=== PATIENT | male | born 1960 | race Caucasian/White ===

== ENCOUNTER 2018-06-06 16:13 | Inpatient (IN) | payer OTHER ==
[~2018-06-06] VITALS: Ht 177.8 cm; Wt 118.8 kg
[~2018-06-06 16:13] MED LIST: PRILOSEC20 MG PO; REMERON45 MG OR; RISPERDAL4 MG OR; TEGRETOL200 MG OR; VISTARIL 50MG C50 MG OR; VISTARIL50 MG OR
--- NOTE | 2018-06-06 16:23 | NUR ---
TO TX ROOM VIA W/C. OFFICERS X 2 AT SIDE
[2018-06-06] MEDS ORDERED: FERR SULFATE325 MG PO (16:28)
[2018-06-06] MEDS ORDERED: GLUCOPHAGE850 MG PO (16:28)
[2018-06-06] MEDS ORDERED: ARTANE2 MG PO (16:29)
[2018-06-06] MEDS ORDERED: HUMULIN 70/30 SC ×2 (16:29)
[2018-06-06] MEDS ORDERED: FLUOXETINE20 MG PO (16:30)
[2018-06-06] MEDS ORDERED: LIPITOR20 MG PO (16:30)
[2018-06-06] MEDS ORDERED: KETOCONAZOLE2 % TOP (16:31)
[2018-06-06] MEDS ORDERED: HEMORRHOIDAL RE (16:33)
[2018-06-06] MEDS ORDERED: HUMULIN R500 UNIT/M SC (16:37)
[2018-06-06] MEDS ORDERED: LISINOPRIL20 M1 PO (16:38)
[2018-06-06] MEDS ORDERED: AMLODIPINE10 MG PO (16:38)
[2018-06-06] MEDS ORDERED: PERPHENAZINE4 MG PO (16:43)
[2018-06-06] MEDS ORDERED: DIPHENHYDRAMINE50 MG PO (16:44)
[2018-06-06] MEDS ORDERED: PROTONIX40 M1 IV (16:46)
[2018-06-06] MEDS ORDERED: [UNRECOGNIZED DRUG - OTHER] PO (16:48)
[2018-06-06] MEDS ORDERED: MELOXICAM15 MG PO (16:49)
[2018-06-06] MEDS ORDERED: BACLOFEN20 MG PO (16:49)
[2018-06-06] MEDS ORDERED: VENTOLIN HFA IN (16:51)
[2018-06-06] MEDS ORDERED: ACETAMIN325 MG PO (16:51)
[2018-06-06 17:01] LABS: HEMATOCRIT 37.5 % (39.0-50.0); HEMOGLOBIN 12.8 g/dl (14.0-18.0); IMMATURE GRANULOCYTES 0.9 % (0.0-5.0); MEAN CELL VOLUME 87.6 fL CALC (80.0-100.0); MEAN CORPUSCULAR HGB 29.9 pG CALC (26.0-32.0); MEAN CORPUSCULAR HGB CONC 34.1 g/L CALC (32.0-36.0); NEUT# 19.91 thou/uL (1.82-7.42); RED BLOOD COUNT 4.28 mill/uL (4.70-6.10)
--- NOTE | 2018-06-06 17:01 | NUR ---
IV FLUIDS INFUSING TO RFA SITE. HEALTHY.
[2018-06-06 17:19] LABS: ALBUMIN 3.2 g/dL (3.2-5.0); BILIRUBIN, TOTAL 1.4 mg/dL (0.0-1.4); POTASSIUM 4.9 mmol/l (3.5-5.1); TOTAL PROTEIN 6.1 g/dL (6.3-8.2)
--- NOTE | 2018-06-06 17:25 | NUR ---
ADVISED OF LACTIC 2.5
--- NOTE | 2018-06-06 17:36 | NUR ---
PT ADVISED OF NPO STATUS. VOICED UNDERSTANDING.
--- NOTE | 2018-06-06 18:01 | NUR ---
PT MEDICATED FOR C/O ABD PAIN. DRINKING CONTRAST FOR CT ABD.
--- NOTE | 2018-06-06 18:04 | NUR ---
ATTEMPT TO CALL REPORT ON PATIENT TO FERNANDA NURSE UNAVAILABLE.
--- NOTE | 2018-06-06 18:15 | NUR ---
REPORT CALLED TO DUSTY MICHAELRDoris NURSE.
--- NOTE | 2018-06-06 18:40 | NUR ---
PT FINISHING PO GASTROGRAFFIN FOR CT ABD W/CONTRAST. REPORTS DECREASE IN ABD PAIN S/P PAIN MED.
--- NOTE | 2018-06-06 19:02 | NUR ---
PT W/ELEVATED TEMP 102.4. CALLED DR THOMAS NEW ORDER FOR TYLENOL 650MG PO Q4H. PT COMPLETED GASTROGRAFFIN. PT TO CT VIA FOR CT ABD. ANTWON ADVISED.
[2018-06-06 19:30] VITALS: BP 166/77
--- NOTE | 2018-06-06 19:45 | NUR ---
PT ARRIVED ON FLOOR VIA STRECHER WITH SENIOR CARE GUARDS. DX. PANCREATITIS. PT ALERT AND ORIENTED. DENIES PAIN AT CURRENT MOMENT. PT HAS LABORED BREATED. O2 95% . PLACED PT ON 2L NASAL CANNULA. CUED PT TO BREATH THROUGH NOSE. PT VOICED UNDERSTANDING. LUNGS DIMISHED. ADOMEN DISTENDED AND SOFT. NO SKIN ISSUES NOTED. PT SINUS TACH ON TELE MONITOR. IV PATENT.PT CONT OF BOWEL AND BLADDER. EDUCATED PT THAT HE WAS NPO. AT BEDSIDE.PULSES STRONG IN ALL EXTREMITIES. PT DECLINED FLU AND PNEUMONIA VACCINATION. PT INSTRUCTED TO CALL FOR ASSIST IF NEED TO USE BATHROOM D/T HIM BEING A FALL RISK. PT VOICED UNDERSTANDING. BED IN LOWEST POSTION. WILL CONTINUE MONITOR.
--- NOTE | 2018-06-06 22:30 | NUR ---
DEMEROL ADMINISTERED FOR PAIN IN ABDOMEN.WILL MONITOR FOR EFFECTIVENESS.
[2018-06-06 23:48] VITALS: BP 98/69
[2018-06-07] VITALS (7 sets, daily range): BP systolic 114–144; BP diastolic 60–86
--- NOTE | 2018-06-07 03:50 | NUR ---
PT CONTINUES TO HAVE TEMP OF 101. PRN TYLENOL ADMINISTED.PT DENIES THAT HE HAS TO USE THE BATHROOM. EDUCATED PT THAT WE NEED A STOOL SAMPLE. HE VOICED UNDERSTAND. WILL CONTINUE TO MONITOR.
--- NOTE | 2018-06-07 05:14 | NUR ---
DEMEROL EFFECTIVE. PT RESTING IN BED WITH EYES CLOSED. BEDIN LOWEST POSITON. GUARDS AT BEDSIDE. WILL CONTINUE TO MONITOR.
--- NOTE | 2018-06-07 06:00 | NUR ---
ATTEMPTED TO GET U/A FROM PT. PT UNABLE TO VOID. MD MADE AWARE. ORDERS TO STRAIGHT CATH. 1000CC OF URINE DRAINED. UA SENT O LAB. MD CONTACT FOR FLUIDS. PENDING CALL BACK. ONCOMING NURSE MADE AWARE.
[2018-06-07 06:16] LABS: HEMATOCRIT 34.5 % (39.0-50.0); HEMOGLOBIN 11.9 g/dl (14.0-18.0); IMMATURE GRANULOCYTES 1.3 % (0.0-5.0); MEAN CORPUSCULAR HGB 30.4 pG CALC (26.0-32.0); MEAN CORPUSCULAR HGB CONC 34.5 g/L CALC (32.0-36.0); NEUT# 19.97 thou/uL (1.82-7.42); RED BLOOD COUNT 3.92 mill/uL (4.70-6.10)
[2018-06-07 06:34] LABS: ALBUMIN 2.8 g/dL (3.2-5.0); CREATININE 2.4 mg/dL (0.7-1.3); MAGNESIUM 1.4 mg/dL (1.6-2.3); POTASSIUM 4.9 mmol/l (3.5-5.1); TOTAL PROTEIN 5.5 g/dL (6.3-8.2)
[2018-06-07 06:57] LABS: URINE BLOOD DIPSTICK MODERATE (NEGATIVE); URINE COLOR YELLOW; URINE GLUCOSE - DIPSTICK 250 mg/dL (NEGATIVE); URINE KETONE NEGATIVE (NEGATIVE); URINE LEUK ESTERASE NEGATIVE (NEGATIVE); URINE NITRITE - DIPSTICK NEGATIVE (Negative); URINE PH 5.5 (4.5-8.0); URINE PROTEIN - DIPSTICK >=300 mg/dL (NEG-TRACE); URINE SPECIFIC GRAVITY >=1.030; URINE UROBILINOGEN - DIPSTICK 0.2 E.U./dL (0.2)
[2018-06-07 06:59] LABS: URINE BILIRUBIN - DIPSTICK SMALL (NEGATIVE)
[2018-06-07 07:00] LABS: URINE AMORPH SEDIMENT MANY hpf (NONE-FER); URINE COARSE GRANULAR CAST MODERATE lpf; URINE FINE GRAN CAST MODERATE lpf; URINE MUCUS FEW hpf (NONE-FEW); URINE SQUAMOUS EPITHELIAL CELL FEW EPI/hpf (0-FEW)
--- NOTE | 2018-06-07 08:00 | NUR ---
DR ALFARO CALLED FOR ORDERS FOR PT FLUIDS. ASKED IF HE WANTED TO START PT ON D5 1/2 BECAUSE PT IS NPO FOR PANCREATITIS. NO ORDERS RECIEVED. DIRETED TO FOLLOW UP WITH ONCOMING PHYSICIAN.ONCOMING NURSE MADE AWARE.
--- NOTE | 2018-06-07 08:51 | NUR ---
PT SITTING UP IN BED WATCHING TV; RESP LABORED ON 02 @3L NC: NON PRODUCTIVE COUGH NOTED; PULSES STRONG; ABD FIRM DISTENDED; SKIN INTACT; TELE IN PLACE; IV FLUSHED WITHOUT DIFFICULTY; MEDICATED WITH TYLENOL FOR TEMP 100.8; REMIAN NPO; COMPLAIN FOR ABD PAIN 8/10; MEDICATED WITH DEMEROL; GUARDS AT BEDSIDE; CALL COTTON IN REACH.
--- NOTE | 2018-06-07 09:15 | NUR ---
LUCAS AMOR/AUGER MACHINE OFFBEARER CALLED FOR UPDATE ON PT
--- NOTE | 2018-06-07 11:36 | NUR ---
DR THOMAS AT BEDSIDE TO DISCUSS POC; TEMP 101.3 MEDICATED WITH TYLENOL; 02 3L NC; TELE IN PLACE; GUARDS PRESENT; CALL COTTON IN REACH.
--- NOTE | 2018-06-07 11:45 | NUR ---
PT WAS BLADDER SCAN BY FINISHING POWDER PRESS OPERATOR AND STUDENT NOTED 300CC URINE IN BLADDER;
--- NOTE | 2018-06-07 12:58 | NUR ---
TEMPT 100.7 MEDICATED WITH TYLENOL. LR INFUSING AT 100CC/HR; SITE APPEARS HEALHTY;
--- NOTE | 2018-06-07 14:04 | NUR ---
PT ENCOURAGE TO VOID USING URINAL OR TOILET; PT CALLED PLANT CONTROL OPERATOR COTTON STATED HE CANNOT VOID; DR THOMAS AWARE AND INSTRUCTED TO INSERT AVERY CATH. PT AWARE OF SUCH;
--- NOTE | 2018-06-07 14:38 | NUR ---
1438- 16 FR AVERY CATHETER PLACED PER DOCTOR ORDER AND NURSE REBEKAH ORDER. 600ML OF JAVID COLORED URINE RETURN IN CATHETER BAG. GRAINING PRESS OPERATOR STUDENT EDILIA PLACED CATHETER, RN CHRISTOPHER ATTENDED AT BEDSIDE. PT TOLERATED PROCEDURE WELL. BED LOW AND LOCKED. CALL LIGHT AND PHONE WITHIN REACH. PT STABLE LYING SEMI-DERAS IN BED. WILL CONTUINUE TO MONITOR.
--- NOTE | 2018-06-07 15:30 | NUR ---
ZOSYN INFUSING, IV SITE APPEARS HEALTHY; AVERY DRAINING TO GRAVITY, CLEAR, JAVID URINE; TEMP 100.5; DR THOMAS AWARE OF TEMP; WILL CONTINUE TO MONITOR,
--- NOTE | 2018-06-07 15:53 | NUR ---
GOLDY SCHMITT/NURSE SENIOR PHP DEVELOPER CALLED FOR UPDATE ON PT.
--- NOTE | 2018-06-07 16:37 | NUR ---
TEMP 101.1, MEDICATED WITH TYLENOL; DR THOMAS AWARE OF TEMP. IFV INFUSING WITHOUT DIFFICULTY; AVERY PATENT DRAINING TO GRAVITY, JAVID, CLEAR URINE; CALL COTTON IN REAC; REMAIN NPO; GUARDS PRESENT.
--- NOTE | 2018-06-07 18:06 | NUR ---
ASSISTED PT TO RECLINER; O2 2L NC; AVERY PATENT DRAINING JAVID, CLEAR URINE TO GRAVITY; C/O OF BEING HUNGRY; REMAIN NPO; ST ON TELE; ASK FOR PAIN MEDS Q4H; CONTINUE HAVING ELEVATED TEMPS; COLD PACK, COLD WASH CLOTH PROVIDED TO ALLIVIATE TEMP; TYLENOL Q4HR; GUARDS PRESENT;
--- NOTE | 2018-06-07 19:23 | NUR ---
REPORT GIVEN BY REBEKAH MONTENEGRO. PATIENT AWAKE RESTING IN BED WATCHING TV WITH TWO GUARDS PRESENT. RESP EVEN AND UNLABORED. NO S/S OF DISTRESS NOTED. PATIENT CURRENTLY ASKING FOR PAIN MEDICATIONS, WILL CHECK MAR. PLAN OF CARE DISCUSSED. PATIENT INFORMED TO CALL WITH ANY QUESTIONS OR CONCERNS. ASSESSMENT COMPLETE. FALL PRECAUTIONS IN PLACE.
[2018-06-08] VITALS (7 sets, daily range): BP systolic 115–158; BP diastolic 63–92
--- NOTE | 2018-06-08 00:49 | NUR ---
PATIENT RESTING IN BED WATCHING TV WITH TWO GUARDS PRESENT. RESP EVEN AND UNLABORED. NO S/S OF DISTRESS NOTED.
--- NOTE | 2018-06-08 04:34 | NUR ---
PATIENT SITTING IN THE RECLINER WITH TWO GUARDS PRESENT AT BEDSIDE. RESP EVEN AND UNLABORED. NO S/S OF DISTRESS NOTED.
[2018-06-08 05:18] LABS: HEMATOCRIT 34.5 % (39.0-50.0); HEMOGLOBIN 11.5 g/dl (14.0-18.0); IMMATURE GRANULOCYTES 2.5 % (0.0-5.0); MEAN CELL VOLUME 90.1 fL CALC (80.0-100.0); MEAN CORPUSCULAR HGB CONC 33.3 g/L CALC (32.0-36.0); NEUT# 16.93 thou/uL (1.82-7.42); RED BLOOD COUNT 3.83 mill/uL (4.70-6.10); RED CELL DISTRI WIDTH 13.1 % (11.5-15.5)
[2018-06-08 05:39] LABS: ALBUMIN 2.8 g/dL (3.2-5.0); BILIRUBIN, TOTAL 0.7 mg/dL (0.0-1.4); CHOLESTEROL HDL RATIO 2.6 (<4.4 (CALC)); CREATININE 1.7 mg/dL (0.7-1.3); MAGNESIUM 1.6 mg/dL (1.6-2.3); POTASSIUM 5.1 mmol/l (3.5-5.1); TOTAL PROTEIN 5.5 g/dL (6.3-8.2)
--- NOTE | 2018-06-08 08:26 | NUR ---
PT SUPINE IN BED. REPORT RECEIVED FROM JOSE YEPEZ. GUARDS AT BEDSIDE X 2. ANKLE SHACKLED TO BED X 1. PT REPORTS SEVERE LEFT UPPER ABD PAIN. PAIN MEDICATION AND SCHEDULE REVIEWED. CALL LIGHT REVIEWED AND IN REACH. DISEASE PROCESS, TX AND DIET DISCUSSED W/ PT. PT STATES UNDERSATNDING OF EDUCATION.
--- NOTE | 2018-06-08 11:00 | NUR ---
PT SHOWERED AT THIS TIME. TEMP 100.7. TYLENOL PO ADMINISTERED. IVF CHILLED AND TUBING PALCED IN ICE/WATER BASIN.
--- NOTE | 2018-06-08 12:00 | NUR ---
DR. THOMAS IN TO SEE PT. PLAN OF CARE UPDATED.
--- NOTE | 2018-06-08 16:34 | NUR ---
URINE SAMPLE COLLECTED FROM AVERY CATHETER PER DR. THOMAS.
--- NOTE | 2018-06-08 19:47 | NUR ---
PT RESTING IN BED, WITH GUARDS AT BEDSIDE, PT RLE IS ZIP TIED TO BED. PEDAL PULSES STRONG AND EQUAL BID. AVERY BAG DRAINING TO GRAVITY, STAT LOCK IN PLACE TO L THIGH. PT STATES PAIN 10/10 REQUESTING PAIN MED, INFORMED PT MEDICATION DUE AT 2146, NOTIFIED MD AND NO NEW ORDERS TO CHANGE MEDICATIONS. PT IN AGREEMENT. DISCUSSED POC AND NPO STATUS. IV PHOEBE WEINBERG, ASSESSMENT COMPLETED, CALL LIGHT IN REACH,CONTINUE TO MONITOR.
--- NOTE | 2018-06-08 22:14 | NUR ---
PT MEDICATED WITH TYLENOL FOR TEMP OF 100.8, SMALL SIP OF WATER ALLOWED. CALL LIGHT IN REACH,CONTINUE TO MONITOR.
[2018-06-09 00:08] VITALS: BP 144/89
--- NOTE | 2018-06-09 01:54 | NUR ---
IV ZOSYN INITIATED,PT C/O PAIN MEDICATED PER JUN. CALL LIGHT IN REACH, GUARDS AT BEDSIDE, CALL LIGHT IN REACH,CONTINUE TO MONITOR.
[2018-06-09 03:49] VITALS: BP 159/94
--- NOTE | 2018-06-09 03:53 | NUR ---
PT ASSISTED BACK IN BED AFTER BM THIS AM. PT HAD REMOVED TELEMETRY AND LEFT IT ON THE FLOOR. REPLACED LEADS AND TELE. CALL LIGHT IN REACH,CONTINUE TO MONITOR.
[2018-06-09 05:31] LABS: HEMOGLOBIN 11.5 g/dl (14.0-18.0); IMMATURE GRANULOCYTES 1.9 % (0.0-5.0); MEAN CELL VOLUME 90.7 fL CALC (80.0-100.0); MEAN CORPUSCULAR HGB 29.8 pG CALC (26.0-32.0); MEAN CORPUSCULAR HGB CONC 32.9 g/L CALC (32.0-36.0); NEUT# 14.54 thou/uL (1.82-7.42); RED BLOOD COUNT 3.86 mill/uL (4.70-6.10)
--- NOTE | 2018-06-09 05:44 | NUR ---
PT C/O PAIN 01/25, MEDICATED WITH DEMEROL, REPLACED TELEMETRY INFORMED PT TO NOT REMOVE MONITOR. CALL LIGHT IN REACH,CONTINUE TO MONITOR.
[2018-06-09 06:48] LABS: ALBUMIN 2.6 g/dL (3.2-5.0); ALKALINE PHOSPHATASE 86 u/l (38-126); AMYLASE 616 u/l (30-110); ANION GAP 17 (6-22 (CALC)); BILIRUBIN, TOTAL 0.5 mg/dL (0.0-1.4); BUN 27 mg/dL (9-20); BUN/CREATININE RATIO 23 (12-20 (CALC)); CARBON DIOXIDE 19 mmol/l (22-30); CHLORIDE 109 mmol/l (95-108); CREATININE 1.2 mg/dL (0.7-1.3); GFR > 60 ML/MIN (>=60 (CALC)); GFR FOR AFR.AMER. > 60 ML/MIN (>=60 (CALC)); MAGNESIUM 1.9 mg/dL (1.6-2.3); POTASSIUM 4.7 mmol/l (3.5-5.1); SGOT/AST 26 u/l (17-59); SODIUM 140 mmol/l (137-146); TOTAL PROTEIN 5.2 g/dL (6.3-8.2)
[2018-06-09 06:56] LABS: LIPASE 10688 u/l (23-300)
--- NOTE | 2018-06-09 07:00 | NUR ---
SHIFT CHANGE REPORT, PT AWAKE ALERT AND ORIENTED LYING IN SUPINE POSITION, C/O RUQ PAIN @ 9/10 AND REQUESTING PAIN MED, ADVISED OF TIME HE CAN HAVE MED AGAIN, TELE MONITOR IN PLACE, AVERY IN PLACE WITH CLEAR JAVID URINE, CALL COTTON IN REACH. PT SHACKLED TO BED AND GUARDS X 2 AT BEDSIDE.
[2018-06-09 09:38] VITALS: BP 167/87
[2018-06-09 11:56] VITALS: BP 170/94
--- NOTE | 2018-06-09 12:08 | NUR ---
DR THOMAS ROUNDED AND DISCUSSED PLAN TO TRANSFER PT TO [facility] UNDER DR. ALFARO'S CARE. REY WAS ADVISED ABOUT ELEVATED BP'S AND BLOOD GLUCOSE BUT DECIDED NOT TO WRITE ANY NEW ORDERS NOW. PAIN NEEDS ADDRESSED.
--- NOTE | 2018-06-09 12:41 | NUR ---
RESTING IN BED, PAIN NOT WELL CONTROLLED AND @ 10/10 NOW, INFORMED OF PLAN TO TRANSFER WITHIN NEXT 30 MINS.
--- NOTE | 2018-06-09 13:23 | NUR ---
REPORT GIVEN TO NURSE GOODMAN AT [facility], PT LEAVING WITH MEDICAL TRANSPORTERS AT THIS TIME.
--- NOTE | 2018-06-09 13:24 | NUR ---
Discharge instructions given. Patient verbalizes understanding of same. Discharged in poor condition via [facility] with *Other. All belongings sent with pt.
== END 2018-06-09 13:07 | DRG 438 ==
LOC: ED 16:13 → ED-I 16:44 → ED 17:01 → MS2 17:02
PROVIDERS: Emergency Medicine; ADMIT Internal Medicine Nephrology; ATTEND Internal Medicine Nephrology
PROC: 0T9B70Z Drainage of Bladder with Drainage Device, Via Natural or Artificial Opening (ICD-10-PCS; principal; 2018-06-07)
DX: K85.91 Acute pancreatitis with uninfected necrosis, unspecified (principal); J18.9 Pneumonia, unspecified organism; N17.9 Acute kidney failure, unspecified; I12.9 Hypertensive chronic kidney disease with stage 1 through stage 4 chronic kidney disease, or unspecified chronic kidney disease; E11.22 Type 2 diabetes mellitus with diabetic chronic kidney disease; N18.9 Chronic kidney disease, unspecified; K21.9 Gastro-esophageal reflux disease without esophagitis; E78.5 Hyperlipidemia, unspecified; F41.1 Generalized anxiety disorder; F32.9 Major depressive disorder, single episode, unspecified; M19.90 Unspecified osteoarthritis, unspecified site; R33.9 Retention of urine, unspecified; D63.8 Anemia in other chronic diseases classified elsewhere; Z79.1 Long term (current) use of non-steroidal anti-inflammatories (NSAID)
CPT/HCPCS: J0692

== ENCOUNTER → 2018-07-05 | Outpatient (REF) | payer OTHER ==
[~2018-07-05] MED LIST changes: +ACETAMIN325 MG PO; +AMLODIPINE10 MG PO; +ARTANE2 MG PO; +BACLOFEN20 MG PO; +DIPHENHYDRAMINE50 MG PO; +FERR SULFATE325 MG PO; +FLUOXETINE20 MG PO; +GLUCOPHAGE850 MG PO; +HEMORRHOIDAL RE; +HUMULIN 70/30 SC; +HUMULIN R500 UNIT/M SC; +KETOCONAZOLE2 % TOP; +LIPITOR20 MG PO; +LISINOPRIL20 M1 PO; +MELOXICAM15 MG PO; +PERPHENAZINE4 MG PO; +PROTONIX40 M1 IV; +VENTOLIN HFA IN; +[UNRECOGNIZED DRUG - OTHER] PO
== END | disposition home or self-care (01) | DRG 440 ==
LOC: CT 08:43
PROVIDERS: ATTEND Internal Medicine
DX: K86.1 Other chronic pancreatitis (principal)
CPT/HCPCS: Q9967

== ENCOUNTER 2019-12-06 16:32 | Observation (INO) | payer OTHER ==
[~2019-12-06] VITALS: Ht 177.8 cm; Wt 113.4 kg
[~2019-12-06 16:32] MED LIST changes: +LISINOPRIL10 MG PO; -LISINOPRIL20 M1 PO
--- NOTE | 2019-12-06 16:32 | NUR ---
PT TO ROOM VIA EMS STRETCHER ACCOMPANIED BY 2 GUARDS.
--- NOTE | 2019-12-06 17:11 | NUR ---
PT FOLLOWING MINIMAL DIRECTION AND HAS DISORGANIZED SPEECH. PUPILS AT A 4, EQUAL AND REACTIVE.
[2019-12-06 17:23] LABS: IMMATURE GRANULOCYTES 0.9 % (0.0-5.0); MEAN CELL VOLUME 87.6 fL CALC (80.0-100.0); MEAN CORPUSCULAR HGB 29.3 pG CALC (26.0-32.0); MEAN CORPUSCULAR HGB CONC 33.4 g/dL CAL (32.0-36.0); NEUT# 4.61 thou/uL (1.82-7.42); RED BLOOD COUNT 3.72 mill/uL (4.70-6.10); RED CELL DISTRI WIDTH 13.1 % (11.5-15.5)
[2019-12-06 17:28] LABS: HEMATOCRIT 32.6 % (39.0-50.0); HEMOGLOBIN 10.9 g/dl (14.0-18.0); URINE BILIRUBIN - DIPSTICK NEGATIVE (NEGATIVE); URINE BLOOD DIPSTICK SMALL (NEGATIVE); URINE COLOR YELLOW; URINE GLUCOSE - DIPSTICK NEGATIVE (NEGATIVE); URINE KETONE NEGATIVE (NEGATIVE); URINE LEUK ESTERASE NEGATIVE (NEGATIVE); URINE NITRITE - DIPSTICK NEGATIVE (Negative); URINE PH 6.5 (4.5-8.0); URINE PROTEIN - DIPSTICK >=300 mg/dL (NEG-TRACE); URINE UROBILINOGEN - DIPSTICK 0.2 E.U./dL (0.2)
[2019-12-06 17:30] LABS: ALBUMIN 3.4 g/dL (3.2-5.0); ALKALINE PHOSPHATASE 81 u/l (38-126); BILIRUBIN, TOTAL 0.4 mg/dL (0.0-1.4); CARBON DIOXIDE 26 mmol/l (22-30); CHLORIDE 99 mmol/l (95-108); CREATININE 2.2 mg/dL (0.7-1.3); GFR 31 ML/MIN (>=60 (CALC)); GFR FOR AFR.AMER. 37 ML/MIN (>=60 (CALC)); SGOT/AST 33 u/l (17-59); TOTAL PROTEIN 6.5 g/dL (6.3-8.2)
[2019-12-06 17:32] LABS: ANION GAP 9 (6-22 (CALC)); BUN 38 mg/dL (9-20); BUN/CREATININE RATIO 17 (12-20 (CALC)); SODIUM 128 mmol/l (137-146)
[2019-12-06 17:33] LABS: POTASSIUM 5.7 mmol/l (3.5-5.1)
[2019-12-06 17:35] LABS: URINE AMORPH SEDIMENT MANY hpf (NONE-FER); URINE RBC 0-2 RBC/hpf (0-5); URINE WBC 0-2 WBC/hpf (0-5)
[2019-12-06 17:43] LABS: MYOGLOBIN 478 ng/mL (0 - 121)
--- NOTE | 2019-12-06 17:55 | NUR ---
TO RADIOLOGY WITH 2 GUARDS AT BEDSIDE
--- NOTE | 2019-12-06 18:04 | NUR ---
PT BACK FROM RADIOLOGY, GUARDS REMAIN AT BEDSIDE PT REMAINS DROWSY WEAK EQUAL ENTERPRISE ENGINEER.
[2019-12-06] MEDS ORDERED: FLONASE AL50 MCG/ACT NAB (18:17)
[2019-12-06] MEDS ORDERED: BENADRYL 50MG C50 MG PO (18:19)
[2019-12-06] MEDS ORDERED: METOPROL TAR100 MG PO (18:20)
[2019-12-06] MEDS ORDERED: RISPERDAL 4MG TA4 MG PO (18:22)
[2019-12-06] MEDS ORDERED: BENZTROPINE2 MG PO (18:23)
[2019-12-06] MEDS ORDERED: BUMETANIDE1 MG PO (18:24)
[2019-12-06] MEDS ORDERED: CLONIDINE0.2 MG PO (18:33)
[2019-12-06] MEDS ORDERED: AMOX/K CLAV875 M1 PO (18:40)
[2019-12-06] MEDS ORDERED: KLOR-CON M1010 MEQ PO (18:40)
[2019-12-06] MEDS ORDERED: MUPIROCIN2 % EX (18:43)
--- NOTE | 2019-12-06 18:53 | NUR ---
GUARDS REMAIN AT BEDSIDE, CALL COTTON WITHIN REACH
--- NOTE | 2019-12-06 19:10 | NUR ---
REPORT RECEIVED. PT RESTING. NAD. VSS. HAND CUFFED TO BEDRAIL. 2 GUARDS AT BEDSIDE. CM. SR.
--- NOTE | 2019-12-06 20:45 | NUR ---
ICE CHIPS GIVEN
--- NOTE | 2019-12-06 21:13 | NUR ---
ATTEMPTED TO CALL REPORT. NURSE WILL CALL BACK.
--- NOTE | 2019-12-06 21:27 | NUR ---
REPORT TO FLOOR.
[2019-12-06 21:40] VITALS: BP 154/74
--- NOTE | 2019-12-06 21:40 | NUR ---
PT ARRIVED TO UNIT VIA STRETCHER ACCOMPANIED BY GUARDS X1 AND ED NURSE. PT APPEARS TO BE IN STABLE CONDITION, SOMEWHAT FIDGETY, BUT OTHERWISE CALM. AIDE IN W/PT OBTAINING V/S.
--- NOTE | 2019-12-06 21:44 | NUR ---
TO FLOOR VIA STRETCHER WITH 2 GUARDS. PT FOLLOWS SOME COMMANDS BUT APPEARS TO BE HALLUCINATING. VOIDED 300 CC IN URINAL PRIOR TO TRANSFER TO FLOOR. PT AMBULATED TO BR UPON ARRIVAL TO ROOM. GAIT A LITTLE WOBBLY
--- NOTE | 2019-12-06 22:49 | NUR ---
WAITING FOR 2ND GUARD TO COME BACK TO ROOM TO MEDICATE PT. 1X GUARD AT BEDSIDE ONLY.
--- NOTE | 2019-12-06 22:57 | NUR ---
PT MEDICATED ORDERS PROVIDE. ONE GUARD AT BEDSIDE. 2ND GUARD IS OFF THE FLOOR. PT IS FIDGETY IN THE BED, SPEECH IS GIBERISH AND NON-COHERANT. PT COOPERATED WITH TAKING PILLS AND DRINKING WATER. UNABLE TO ANSWER ADMISION QUESTIONS APPROPRIATELY. WILL CONTINUE TO MONITOR. SKIN APPEARS INTACT.
--- NOTE | 2019-12-06 23:10 | NUR ---
GUARDS CALLED TO REPORT THAT THE PT PULLED OUT HIS IV.
--- NOTE | 2019-12-06 23:15 | NUR ---
PT MOVING AROUND PULLING ON CHAIN AT FEET, BED IS STRIPPED, NO ATTEMPTS AT THIS TIME TO REPLACE IV SITE.
[2019-12-07 04:20] VITALS: BP 185/91
--- NOTE | 2019-12-07 06:01 | NUR ---
PT MEDICATED FOR BP @167/73, HR 88 PER ORDERS. PT AWAKE PROPPED UP IN BED LOOKING AROUND PULLING ON THINGS, TALKING ABOUT SEEING THINGS THAT ARE NOT IN THE ROOM. PT LOC TO SELF AND LOCATION, BUT THEN TALKS OF HALLUCINATIONS. GUARDS X2 AT BEDSIDE. GUARD INFORMED MANUAL LATHE MACHINIST THAT PT IS NOT NORMALLY LIKE THIS AT ALL AND IS NORMALLY LOC X4.
[2019-12-07 07:44] LABS: HEMATOCRIT 36.6 % (39.0-50.0); HEMOGLOBIN 11.7 g/dl (14.0-18.0); IMMATURE GRANULOCYTES 0.8 % (0.0-5.0); MEAN CELL VOLUME 89.3 fL CALC (80.0-100.0); MEAN CORPUSCULAR HGB 28.5 pG CALC (26.0-32.0); NEUT# 4.29 thou/uL (1.82-7.42); RED BLOOD COUNT 4.1 mill/uL (4.70-6.10); RED CELL DISTRI WIDTH 13.2 % (11.5-15.5)
[2019-12-07 07:50] VITALS: BP 164/88
--- NOTE | 2019-12-07 07:50 | NUR ---
ASSESSMENT IS COMPLETED: PT WAS IN ROOM 290 CHAGNED TO ROOM 278 WITH 2 GUARDS PRESENT. IV SITE WAS TAKEN OUT BY PT. HR IS REG,PULSES ARE STRONG X4, ABD IS SOFT WITH ACTIVE BS. BREATH SOUNDS ARE CLEAR BILATERALLY, CONTINEU TO OSBERVE AND MONITOR.
[2019-12-07 08:16] LABS: ALBUMIN 3.4 g/dL (3.2-5.0); BILIRUBIN, TOTAL 0.6 mg/dL (0.0-1.4); CREATININE 2.1 mg/dL (0.7-1.3); POTASSIUM 5.4 mmol/l (3.5-5.1); TOTAL PROTEIN 6.2 g/dL (6.3-8.2)
--- NOTE | 2019-12-07 08:40 | NUR ---
SPOKE WITH NURSE BLOOD AT THE [facility] RE: PT. AN UPDATE .AND INFORMED THAT THE DR IS MAKING ROUNDS.
--- NOTE | 2019-12-07 12:30 | NUR ---
PT CONTINUES TO "FIDGET " IN THE BED. 2 GUARDS ARE AT BEDSIDE. IV SITE REMAINS INTACT CONTINUE TO OBSERVE AND MONITOR.
--- NOTE | 2019-12-07 13:15 | NUR ---
A COORDINATOR FROM [facility] IN TO VISIT WITH PT AND GUARDS WAS GIVEN AN UPDATE. BY THE GUARDS.
--- NOTE | 2019-12-07 14:30 | NUR ---
GAVE MEDICATION TO RELAX THE PT, IM. GUARDS AT BEDSIDE. ENCOURAGING PT TO STAY IN BED. PT WANTING A AVERY EXPLAINED THAT IT WOULD CAUSE MORE INFECTION.
[2019-12-07 15:26] VITALS: BP 164/88
--- NOTE | 2019-12-07 16:45 | NUR ---
PT CONTINUES TO BE ANXIOUS.
[2019-12-07 19:40] VITALS: BP 194/94
--- NOTE | 2019-12-07 19:42 | NUR ---
PT. IS ALERT TO SELF WELL MONTH AND YEAR; RE-ORIENTED TO PLACE. SHACKLE TO LLE NOTED WITH 2 GUARDS AT BEDSIDE. ASSESSMENT COMPLETED. IV SITE PATENT AND ORDERED IVF INFUSING WELL, NEW BAG OF IVF HUNG. DRESSING RE-DONE TO RIGHT GREAT TOE PER ORDER. PT. INTERMITTENTLY THRASHING AND SHAKING IN BED AND SPEAKING TO HALLUCINATIONS. PT. CONFIRMS HE SEES PEOPLE WHO ARE NOT THERE. PT. MEDICATED WITH PO LOPRESSOR FOR ELEVATED B/P 194/94; WILL REASSESS. ENCOURAGED TO CALL FOR ANY NEEDS. CALL LIGHT IS IN REACH. WILL CONTINUE TO MONITOR. URINAL PLACED AT BEDSIDE.
[2019-12-07 21:35] VITALS: BP 180/102
--- NOTE | 2019-12-07 21:42 | NUR ---
SCHEDULED CLONIDINE GIVEN SCHEDULED FOR HTN; WILL REASSESS.
[2019-12-07 23:52] VITALS: BP 179/89
[2019-12-08] VITALS (7 sets, daily range): BP systolic 96–194; BP diastolic 55–92
--- NOTE | 2019-12-08 | NUR ---
MEDICATED WITH ORDERED PRN APRESOLINE FOR HTN; WILL REASSESS.
--- NOTE | 2019-12-08 02:23 | NUR ---
NOTIFIED DR. LISA OF PT'S CURRENT B/P 194/92 WITH HR 82 ALONG WITH PT. BEING RESTLESS WITHOUT SLEEP WELL ALL B/P MEDS GIVEN THIS SHIFT; NEW ORDERS RECEIVED AND TO BE CARRIED OUT.
--- NOTE | 2019-12-08 03:08 | NUR ---
MEDICATED WITH ORDERED ONE TIME DOSE OF LABETALOL AND ATIVAN FOR HTN AND RESTLESSNESS; WILL REASSESS.
--- NOTE | 2019-12-08 05:36 | NUR ---
B/P 180/90 AND MEDICATED WITH ORDERED CLONIDINE; WILL REASSESS.
[2019-12-08 05:41] LABS: HEMATOCRIT 37.1 % (39.0-50.0); HEMOGLOBIN 11.9 g/dl (14.0-18.0); MEAN CELL VOLUME 90.9 fL CALC (80.0-100.0); MEAN CORPUSCULAR HGB 29.2 pG CALC (26.0-32.0); MEAN CORPUSCULAR HGB CONC 32.1 g/dL CAL (32.0-36.0); RED BLOOD COUNT 4.08 mill/uL (4.70-6.10); RED CELL DISTRI WIDTH 13.2 % (11.5-15.5)
--- NOTE | 2019-12-08 05:55 | NUR ---
NOTIFIED DR. LISA OF PT. COUGHING UP BLOOD AND C/O NAUSEA AND ABD PAIN; ALSO NOTFIED HIM OF PT'S UNCONTROLLED B/P THROUGHOUT THE SHIFT AND OF ALL B/P MEDS ADMINISTERED; NEW ORDERS RECIEVED AND TO BE CARRIED OUT.
[2019-12-08 06:03] LABS: ALBUMIN 3.3 g/dL (3.2-5.0); BILIRUBIN, TOTAL 0.5 mg/dL (0.0-1.4); POTASSIUM 5.1 mmol/l (3.5-5.1)
--- NOTE | 2019-12-08 06:13 | NUR ---
PT. MEDICATED WITH ORDERED PROTONIX AND ZOFRAN. GUARDS REMAIN AT BEDSIDE. AWAITING RADIOLOGY TO CALL BACK WHEN READY FOR PT. TO COME DOWN.
--- NOTE | 2019-12-08 06:40 | NUR ---
REASSESSED B/P AND 139/58. NO COUGHING UP AT BLOOD AT THIS TIME.
--- NOTE | 2019-12-08 06:48 | NUR ---
PT. DOWN TO CT VIA W/C ACCOMPANIED BY STAFF.
--- NOTE | 2019-12-08 06:59 | NUR ---
PT. RETURNED FROM CT.
--- NOTE | 2019-12-08 08:30 | NUR ---
PT IS ALERT WITH CONFUSION AND ABLE TO MAKE SOME NEEDS KNOWN. SKIN WARM TO TOUCH. PT IS CONFUSED TO TIME. MEDICATIONS GIVEN AND TOLERATED WELL.
--- NOTE | 2019-12-08 12:20 | NUR ---
md in and pt to be transferred to [facility] for cardiac workup. pt and aware of new orders
[2019-12-08] MEDS ORDERED: AMLODIPINE BESYL5 MG PO (12:50)
== END 2019-12-08 16:46 | disposition designated cancer center or children's hospital (05) | DRG 885 ==
LOC: ED 16:32 → ED-I 18:27 → ED 18:38 → MS2 18:39
PROVIDERS: Emergency Medicine; Nurse Practitioner Family; ADMIT Internal Medicine; ATTEND Internal Medicine
DX: F20.9 Schizophrenia, unspecified (principal); N17.9 Acute kidney failure, unspecified; E87.1 Hypo-osmolality and hyponatremia; F31.9 Bipolar disorder, unspecified; I10 Essential (primary) hypertension; E11.9 Type 2 diabetes mellitus without complications; I48.91 Unspecified atrial fibrillation; J45.909 Unspecified asthma, uncomplicated; K21.9 Gastro-esophageal reflux disease without esophagitis; Z79.4 Long term (current) use of insulin; Z20.828 Contact with and (suspected) exposure to other viral communicable diseases
CPT/HCPCS: G0378; J2060; S0164; S0166

== ENCOUNTER 2020-03-06 13:31 | Inpatient (IN) | payer OTHER ==
[~2020-03-06] VITALS: Ht 177.8 cm; Wt 118.0 kg
[~2020-03-06 13:31] MED LIST changes: -ACETAMIN325 MG PO; +AMLODIPINE BESYL5 MG PO; +AMOX/K CLAV875 M1 PO; +BENADRYL 50MG C50 MG PO; +BENZTROPINE2 MG PO; +BUMETANIDE1 MG PO; +CLONIDINE0.2 MG PO; +FLONASE AL50 MCG/ACT NAB; -HUMULIN R500 UNIT/M SC; +KLOR-CON M1010 MEQ PO; +METOPROL TAR100 MG PO; +MUPIROCIN2 % EX; +NOVOLIN R100 UNIT/1 SC; -PRILOSEC20 MG PO; +PRILOSEC20 MG/CAP PO; +RISPERDAL 4MG TA4 MG PO; +TYLENOL500 MG PO
--- NOTE | 2020-03-06 13:31 | NUR ---
PATIENT TO ROOM UNDER GUARD AND PHYSICIAN NOTIFIED OF PATIENT STATUS. COVID19 LAB RESULTS SENT WITH PATIENT
[2020-03-06 14:25] LABS: HEMATOCRIT 30.6 % (39.0-50.0); HEMOGLOBIN 10.2 g/dl (14.0-18.0); IMMATURE GRANULOCYTES 1.5 % (0.0-5.0); MEAN CELL VOLUME 90.3 fL CALC (80.0-100.0); MEAN CORPUSCULAR HGB 30.1 pG CALC (26.0-32.0); MEAN CORPUSCULAR HGB CONC 33.3 g/dL CAL (32.0-36.0); NEUT# 5.68 thou/uL (1.82-7.42); RED BLOOD COUNT 3.39 mill/uL (4.70-6.10); RED CELL DISTRI WIDTH 13.2 % (11.5-15.5)
--- NOTE | 2020-03-06 14:30 | NUR ---
PT IN BED. ATTACHED TO MONITOR. SECURITY AT BEDSIDE.
[2020-03-06 14:52] LABS: ALBUMIN 3.5 g/dL (3.2-5.0); BILIRUBIN, TOTAL 0.4 mg/dL (0.0-1.4)
[2020-03-06 14:58] LABS: CREATININE 3.9 mg/dL (0.7-1.3)
[2020-03-06 14:59] LABS: POTASSIUM 6.5 mmol/l (3.5-5.1)
[2020-03-06 15:07] LABS: C-REACTIVE PROTEIN 3.8 mg/dL (0-0.9)
--- NOTE | 2020-03-06 15:36 | NUR ---
IV MEDS INFUSING WITHOUT DIFFICULTY. VITALS STABLE.
[2020-03-06] MEDS ORDERED: TRAMADOL HYDROC50 M1 PO (16:35)
--- NOTE | 2020-03-06 16:40 | NUR ---
PT REMAINS STABLE. IV MEDS CONTINUE TO INFUSE. STABLE ON MONITOR. SECURITY AT BEDSIDE.
--- NOTE | 2020-03-06 17:15 | NUR ---
NO CHANGE FROM PREVIOUS ASSESSMENT NOTE.
--- NOTE | 2020-03-06 17:22 | NUR ---
ATTEMPTED TO ENTER MED REC AT THIS TIME. LOCKED BY ADMITTING PHYSICIAN.
--- NOTE | 2020-03-06 18:53 | NUR ---
REPORT GIVEN TO JOSE BADILLO.
--- NOTE | 2020-03-06 18:59 | NUR ---
HAND OFF REPORT RECEIVED BY ZOHRA
--- NOTE | 2020-03-06 19:58 | NUR ---
LEONORA COMPLETED, BSG 221, PATIENT AWAKE AND ALERT, LAW ENFORCEMENT FROM [facility] [place] IN REPLACED BY [facility]
--- NOTE | 2020-03-06 22:00 | NUR ---
PATIENT RESTING QUIETLY, AVERY CATH IN PLACED, EMPTIED 2000CC CLEAR YELLOW URINE, NO C/O PAIN OR DISCOMFORT, NO S/S OF DISTRESS NOTED, RESPIRATIONS EVEN AND UNLBORED, PATIENT AWAITING INPATIENT ROOM, PATIENT REFUSES TO LEAVE SUPPLEMENTAL O2 TREATMENT IN PLACE.
[2020-03-07] VITALS (9 sets, daily range): BP systolic 130–157; BP diastolic 63–86
--- NOTE | 2020-03-07 01:15 | NUR ---
PO FLUIDS GIVEN
--- NOTE | 2020-03-07 01:30 | NUR ---
PATIENT REMOVING MONITORING EQUIPMENT AND NASAL CANULA, PATIENT REFUSING TO LEAVE EQUIPMENT IN PLACE, PATIENT RESTLESS AND AGITATED. EMPTIED 1000CC CLEAR YELLOW URINE FROM AVERY.
--- NOTE | 2020-03-07 01:42 | NUR ---
PATIENT RESTING QUIETLY AT THIS TIME, NO C/O PAIN OR DISCOMFORT, NO S/SOF DISTRESS NOTED, PATIENT WITH O2@2L NC AT THIS TIME, CO FROM [facility] [place] ACCOMPANIES PATIENT AT THIS TIME.
--- NOTE | 2020-03-07 02:30 | NUR ---
PATIENT CONTINUES TO REMOVE ALL MONITORING EQUIPMENT AND REFUSES TO LEAVE NASAL CANULA IN PLACE. PATIENT RESTLESS AND AGITATED WITH MONITORING EQUIPMENT. 1000CC CLEAR YELLOW URINE, EMPTIED FROM AVERY.
--- NOTE | 2020-03-07 02:38 | NUR ---
PO FLUIDS GIVEN
--- NOTE | 2020-03-07 03:24 | NUR ---
550CC OF CLEAR YELLOW URINE EMPTIED FROM AVERY.
--- NOTE | 2020-03-07 05:30 | NUR ---
PATIENT RESTING WITH EYES CLOSED, RESPIRATIONS EVEN AND UNLABORED, O2@2L NC, NO C/O PAIN OR DISCOMFORT, NO S/S OF DISTRESS NOTED, PATIENT AWAITING INPATIENT BED. OFFICER FROM [facility] IN [facility]
[2020-03-07 06:57] LABS: HEMATOCRIT 28.8 % (39.0-50.0); HEMOGLOBIN 9.6 g/dl (14.0-18.0); IMMATURE GRANULOCYTES 2.3 % (0.0-5.0); MEAN CELL VOLUME 90.9 fL CALC (80.0-100.0); MEAN CORPUSCULAR HGB 30.3 pG CALC (26.0-32.0); MEAN CORPUSCULAR HGB CONC 33.3 g/dL CAL (32.0-36.0); NEUT# 3.96 thou/uL (1.82-7.42); RED BLOOD COUNT 3.17 mill/uL (4.70-6.10); RED CELL DISTRI WIDTH 13.4 % (11.5-15.5)
[2020-03-07 07:02] LABS: C-REACTIVE PROTEIN 6.9 mg/dL (0-0.9); CREATININE 3.4 mg/dL (0.7-1.3)
[2020-03-07 07:14] LABS: POTASSIUM 6.8 mmol/l (3.5-5.1)
--- NOTE | 2020-03-07 07:14 | NUR ---
HAND OFF REPORT GIVEN TO TREVOR. CRITIAL POTASSIUM RESULT REPORT TO TREVOR TO SPEAK WITH PRIMARY CARE.
--- NOTE | 2020-03-07 07:15 | NUR ---
PATIENT REPORT FROM JOSE MCKINNON.
--- NOTE | 2020-03-07 07:20 | NUR ---
DR RETANA CONTACTED REGARDING CRITICAL LAB OF POTASSIUM LEVEL @ 6.8 FROM AM DRAW. ORDER TO GIVE PT KAYEXALATE AND MORNING INSULIN AND REPEAT EKG.
--- NOTE | 2020-03-07 07:30 | NUR ---
PATIENT ON 3L NC AT THIS TIME SPO2 98% ON ROOM AIR. PATIENT A&O X 3 AND HAS SOME CONFUSION AT TIMES. GUARD AT BEDSIDE.
[2020-03-07] MEDS ORDERED: SEROQUEL100 MG PO (08:46)
[2020-03-07] MEDS ORDERED: [UNRECOGNIZED DRUG - OTHER] TOP (08:49)
[2020-03-07] MEDS ORDERED: ASPIRIN 8181 MG PO (08:53)
[2020-03-07] MEDS ORDERED: NEURONTIN250 MG/5 M PO (08:55)
--- NOTE | 2020-03-07 09:00 | NUR ---
DR LISA GAVE VERBAL ORDERS FOR ELEVATED POTASSIUM. WILL FAX TO PHARMACY.
[2020-03-07] MEDS ORDERED: HUMULIN 70/30 SC (09:03)
[2020-03-07] MEDS ORDERED: DECADRON2 MG PO (09:06)
--- NOTE | 2020-03-07 10:00 | NUR ---
PATIENT CLEANED OF STOOL INCONTINENCE, VS REMAIN STABLE PATIENT 02 DECREASED FROM 3L TO 2L, NC. SPO2 REMAINS AT 97%. PATIENT A&O X 3 AT THIS TIME. CALL COTTON WITHIN REACH. ENCCOURAGED PATIENT TO CALL WHEN HE NEEDS TO GO TO THE BATHROOM. GUARD AT BEDSIDE.
[2020-03-07 11:32] LABS: ALBUMIN 2.9 g/dL (3.2-5.0); BILIRUBIN, TOTAL 0.4 mg/dL (0.0-1.4); CREATININE 3.1 mg/dL (0.7-1.3); TOTAL PROTEIN 5.7 g/dL (6.3-8.2)
[2020-03-07 11:33] LABS: POTASSIUM 5.2 mmol/l (3.5-5.1)
--- NOTE | 2020-03-07 11:50 | NUR ---
REPORT CALLED TO JOSE LLOYD.
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
--- NOTE | 2020-03-07 12:05 | NUR ---
PATIENT TRANSPORTED TO [facility] IN STABLE CONDITION VIA STRETCHER BY MONI MURRAY.
--- NOTE | 2020-03-07 17:22 | NUR ---
RADIOLOGY AT BEDSIDE FOR ANKLE XRAY.
--- NOTE | 2020-03-07 18:14 | NUR ---
ACCU CHECK OF 431 PRIOR TO DINNER; NOTIFIED. NEW ORDER FOR SLIDING SCALE 10 UNITS PLUS AN ADDITIONAL 10 UNITS OF HUMALOG. PT NOTIFIED AND INSULIN ADMISTERED AT THIS TIME PT ATE 100% OF DINNER.
--- NOTE | 2020-03-07 18:21 | NUR ---
CALL RETURNED FROM [facility] WITH REQUESTED INFORMATION ABOUT PATIENT; AVERY CATHETER PLACED YESTERDAY MORNING 03/06/20. RECEIVED FLU VACCINE THIS MONTH 02/28/20.
--- NOTE | 2020-03-07 20:01 | NUR ---
PHYSICAL ASSESMENT COMPLETE. PT CURRENTLY DENIES PAIN OR DISCOMFORT. SCHEDULED MEDICATIONS AND PRN MEDICATION ADMINISTERED, SEE E-MAR. PT ON 2 LITERS OF 02 STATING AT 95. PT DENIES ANY NEEDS AT THIS TIME. PLAN OF CARE REVIEWED, PT DENIES QUESTIONS, VERBALIZES UNDERSTANDING. ITEMS WITHIN REACH, BED LOCKED IN LOW POSITION W/ BEDRAILS UP X2. CALL COTTON WITHIN REACH, AGREES TO CALL PRN.
[2020-03-08] VITALS (7 sets, daily range): BP systolic 113–195; BP diastolic 61–119
--- NOTE | 2020-03-08 04:05 | NUR ---
PT LAYING IN BED WITH EYES CLOSED, APPEARS TO BE SLEEPING, APPEARS COMFORTABLE AND IN NO DISTRESS. RESPIRATIONS REGULAR AND UNLABORED. ITEMS REMAIN WITHIN REACH, CALL COTTON REMAINS WITHIN REACH. BED REMAINS LOCKED AND IN LOW POSITION WITH BEDRAILS UP X2. PT SHACKLED TO THE BED. VERIFIED GOOD CIRCULATION. GUARD STATION OUTSIDE PTS DOOR. WILL CONTINUE TO MONITOR.
[2020-03-08 04:51] LABS: HEMATOCRIT 27.2 % (39.0-50.0); HEMOGLOBIN 9.1 g/dl (14.0-18.0); IMMATURE GRANULOCYTES 1.2 % (0.0-5.0); MEAN CELL VOLUME 89.2 fL CALC (80.0-100.0); MEAN CORPUSCULAR HGB 29.8 pG CALC (26.0-32.0); MEAN CORPUSCULAR HGB CONC 33.5 g/dL CAL (32.0-36.0); NEUT# 4.1 thou/uL (1.82-7.42); RED BLOOD COUNT 3.05 mill/uL (4.70-6.10); RED CELL DISTRI WIDTH 13.2 % (11.5-15.5)
[2020-03-08 05:21] LABS: ALBUMIN 2.7 g/dL (3.2-5.0); C-REACTIVE PROTEIN 6.2 mg/dL (0-0.9); CREATININE 2.7 mg/dL (0.7-1.3); TOTAL PROTEIN 5.6 g/dL (6.3-8.2)
[2020-03-08 05:32] LABS: BILIRUBIN, TOTAL 0.2 mg/dL (0.0-1.4)
--- NOTE | 2020-03-08 07:18 | NUR ---
PT RESTING IN BED, NO SIGNS OF DISTRESS NOTED, RESP EVEN AND UNLABORED. SHALLOW, DISCUSSED POC, PT HAS A FLAT AFFECT, HX OF SCHIZOAFFECTIVE DISORDER; ANTISOCIAL PERSONALITY DISORDER. AVERY DRAINING TO GRAVITY, ASSESSMENT COMPLETED, CALL LIGHT IN REACH,CONTINUE TO MONITOR.
--- NOTE | 2020-03-08 10:41 | NUR ---
PT MEDICATED PER CIERA DUCKWORTH TO ASSIST PT TO BSC WITH WALKER.
--- NOTE | 2020-03-08 14:12 | NUR ---
PT TAKEN TO DOWN TO CT OF R FOOT, ACCOMPANIED BY HOME PERFORMANCE LABORER AND GUARD. CONTINUE TO MONITOR.
--- NOTE | 2020-03-08 14:31 | NUR ---
PT RETURNED FROM CT, MEASURED FOOT FOR ED STAFF MEMBER TO PLACE CAST ON PT.
--- NOTE | 2020-03-08 15:09 | NUR ---
RN AT BEDSIDE, FIBERGLASS GRINDER TO ASSIST. PT PLACED IN SUGARTONG SPLINT WITH ORTHOGLASS,PT TOLERATED WELL. CALL LIGHT IN REACH, CONTINUE TO MONITOR.
--- NOTE | 2020-03-08 17:35 | NUR ---
PT IN BED NAKED, PULLING ON AVERY, IV FOUND DISLODGED, CATHETER INTACT. NOTED SPLINT ON FLOOR. KISS MACHINE OPERATOR AND GUARD AT BEDSIDE. TELE REPLACED. NEW LINENS APPLIED. NEW IV #20G MARIA R STARTED, PT TOLERATED WELL. PT IS NON COOPERATIVE. INFORMED PT TO NOT PULL ON LINES. NEEDS REINFORCMENT, CALL LIGHT IN REACH, CONTINUE TO MONITOR.
--- NOTE | 2020-03-08 18:31 | NUR ---
PT NAKED AGAIN, REMOVED TELE, IV FOUND DISLODGED, CATHETER INTACT. CONTINUE TO MONITOR.
[2020-03-08 18:47] LABS: URINE BILIRUBIN - DIPSTICK NEGATIVE (NEGATIVE); URINE BLOOD DIPSTICK MODERATE (NEGATIVE); URINE COLOR YELLOW; URINE GLUCOSE - DIPSTICK 100 mg/dL (NEGATIVE); URINE KETONE NEGATIVE (NEGATIVE); URINE LEUK ESTERASE NEGATIVE (NEGATIVE); URINE NITRITE - DIPSTICK NEGATIVE (Negative); URINE PH 6.5 (4.5-8.0); URINE PROTEIN - DIPSTICK 100 mg/dL (NEG-TRACE); URINE UROBILINOGEN - DIPSTICK 0.2 E.U./dL (0.2)
[2020-03-08 18:48] LABS: URINE RBC 0-2 RBC/hpf (0-5); URINE WBC 0-2 WBC/hpf (0-5)
--- NOTE | 2020-03-08 19:00 | NUR ---
REPORT RECEIVED FROM Nnamdi JACOBSON LPN, CARE OF PT ASSUMED AT THIS TIME.
--- NOTE | 2020-03-08 20:37 | NUR ---
DR. LISA CONTACTED VIA PHONE CALL AND UPDATED ON PT'S STATUS. PT HANDCUFFED BY GUARDS FOR AGITATION. PT VISIBLY UPSET. TEMP 101.3, SUSTAINING ST 100-130'S, RRESPIRATIONS 24, NIBP 194/119mm/Hg, 92% SPO2 ON 02 @ 2L/MIN VIA NC. ORDER FOR ATIVAN 2MG IV X1 NOW FOR AGITATION. PLAN IS TO REPLACE IV AND MEDICATE PT SO HE IS CALM ENOUGH TO TAKE HIS SCHEDULED MEDICATIONS AND PRN TYLENOL.
--- NOTE | 2020-03-08 21:30 | NUR ---
UPON ENTERING ROOM PT HAS PUSHED NC UP TO HIS FOREHEAD. NC PLACED PROPERLY. NEW IV SITE STARTED TO R-FA, 22G, X2 ATTEMPTS. PT TOLERATED WELL. IVF RECONNECTED AND ATIVAN ADMINISTERED. FINGER STICK GLUCOSE 252. INSULINS ADMINISTERED ORDERED, SEE E-MAR. PT IS CALMER AND AGREES TO TAKE PO MEDICATIONS. SCHEDULED MEDICATIONS ADMINISTERED, SEE E-MAR. PHYSICAL ASSESMENT COMPLETED. AMBER WRAP TO RLE SUGAR TONG SPLINT PARTIALLY UNWRAPED. AMBER WRAP RE-SECURED. CSM TO RLE INTACT. AVERY TO BAG DRAINAGE, TUBING UNKINKED, SECURE, AND UNOBSTRUCTED. OUTPUT CLEAR YELLOW. TELE # [id number] AIRBORN PRECAUTIONS FOR COVID-[address] GUARD STATIONED OUTSIDE OF ROOM. PT IS CALMER AND DROWSY AT THIS TIME. WILL CON'T TO MONITOR.
--- NOTE | 2020-03-08 22:30 | NUR ---
PT APPEARS TO BE SLEEPING COMFORTABLY, LAYING IN BED WITH EYES CLOSED, RESPIRATIONS REGULAR AND UNLABORED, NO APPARENT DISTRESS. REMAINS HANDCUFFED TO BED AT DISCRETION OF GUARD. GUARD REMAINS STATIONED OUTSIDE OF ROOM.
--- NOTE | 2020-03-08 23:35 | NUR ---
PT APPEARS TO BE SLEEPING COMFORTABLY, LAYING IN BED WITH EYES CLOSED, RESPIRATIONS REGULAR AND UNLABORED, NO APPARENT DISTRESS, WAKES EASILY, TEMP 97.8, NSR IN 70S ON TELE, NIBP 131/61mmHg, SpO2 91% ON 02 AT 2L/MIN VIA NC. GUARD REMAINS OUTSIDE OF ROOM.
--- NOTE | 2020-03-09 01:30 | NUR ---
PT APPEARS TO BE SLEEPING COMFORTABLY, LAYING IN BED WITH EYES CLOSED, RESPIRATIONS REGULAR AND UNLABORED, NO APPARENT DISTRESS, CALL COTTON REMAINS WITHIN REACH. GUARD REMAINS OUTSIDE OF ROOM.
[2020-03-09 04:40] VITALS: BP 169/81
--- NOTE | 2020-03-09 05:19 | NUR ---
PER Kristi PURVIS BACON DE RINDER, PT REFUSED TO ALLOW HER TO DRAW AM LABS. PT REMAINS DROWSY BUT ROUSABLE. GUARD REMAINS STATIONED OUTSIDE OF ROOM.
[2020-03-09 08:50] VITALS: BP 160/83
--- NOTE | 2020-03-09 08:50 | NUR ---
REPORT WAS RECEIVED FROM KARLA. ASSESSMENT DONE. PT IS DROWSY A&O X2. LUNGS SOUNDS/DIMINISHED. PATIENT O2 IS READING 84-88% ON 2L VIA NC. PT FINGERS ARE COLD CHECK PT TEMP 95.8. PT STATED HE IS COLD MADE ROOM WARM. RECHECK PT O2 IS 88-89%. TURN O2 AT 3L VIA NC O2 READING NOW 99-100%. AVERY IS PATENT WITH YELLOW URINE. PATIENT STATED HE WILL LET LAB DRAW HIS BLOOD. PT HAS A DRY COUGH.PT IS IN FOWLERS POSTION WITH LEFT ARM HANDCUFFED. GUARD IS STATIONED OUTSIDE OF ROOM. TELE IN PLACE. RLE SUGARTONG SPLINT IN PLACE. PRECAUTIONS IN PLACE FOR COVID. PT DENIES ANY NEEDS AT THIS TIME.
[2020-03-09 10:30] VITALS: BP 179/95
[2020-03-09 11:31] LABS: HEMATOCRIT 31.5 % (39.0-50.0); HEMOGLOBIN 10.3 g/dl (14.0-18.0); MEAN CELL VOLUME 91.6 fL CALC (80.0-100.0); MEAN CORPUSCULAR HGB 29.9 pG CALC (26.0-32.0); MEAN CORPUSCULAR HGB CONC 32.7 g/dL CAL (32.0-36.0); RED BLOOD COUNT 3.44 mill/uL (4.70-6.10); RED CELL DISTRI WIDTH 13.2 % (11.5-15.5)
[2020-03-09 11:52] LABS: ALBUMIN 3.1 g/dL (3.2-5.0); CREATININE 2.5 mg/dL (0.7-1.3); TOTAL PROTEIN 6.3 g/dL (6.3-8.2)
--- NOTE | 2020-03-09 11:58 | NUR ---
MEDICATED PATIENT WITH TYLENOL FOR PAIN IN RIGHT ANKLE. RECHECK PATIENT O2 IS 91% AT 3L VIA NC. MEDICATED PATIENT WITH MILK OF MAG. TELE IN PLACE. PATIENT DENIES ANY OTHER NEEDS AT THIS TIME. CALL LIGHT IN REACH. MIKEY OUTSIDE PATIENT ROOM.
[2020-03-09 12:05] LABS: BILIRUBIN, TOTAL 0.5 mg/dL (0.0-1.4); POTASSIUM 5.2 mmol/l (3.5-5.1)
--- NOTE | 2020-03-09 14:02 | NUR ---
PATIENT REMOVED HIS TELE AND TRYING TO PULL HIS AVERY. REORIENT PT. PATIENT VERBALIZED UNDERSTANDING. GUARD IN ROOM. PATIENT STATED HE NEEDS TO HAVE A BM. LICENSED INSURANCE AGENT AND I ASSISTED PT TO THE BSC.
--- NOTE | 2020-03-09 15:06 | NUR ---
PATIENT IS DROWSY AND TRYING TO SLEEP. NO S/S OF DISTRESS NOTED. PT DENIES ANY NEEDS AT THIS TIME. PATIENT LEFT HANDCUFFED. GUARD OUTSIDE OF ROOM.
[2020-03-09 16:20] VITALS: BP 154/73
--- NOTE | 2020-03-09 19:00 | NUR ---
REPORT RECEIVED FROM Nnamdi PURVIS RN, CARE OF PT ASSUMED AT THIS TIME.
[2020-03-09 20:30] VITALS: BP 176/87
--- NOTE | 2020-03-09 20:45 | NUR ---
REPORTED BY Tangela CAMARGO CNA, PT FOUND WITH O2 OFF. SpO2 @ THIS TIME 80%. 02 @ 3L/MIN VIA NC REPLACED AND SPO2 INCREASED TO MAX OF 84%. CONSULTED WITH WINSTON RT, RT PLACES PT ON HIGH FLOW 02 @ 10L/MIN HUMIDIFIED. SpO2 MAX OF 91%. PT DOES NOT PRESENT WITH INCREASE WORK OF BREATHING OR REPIRATORY DISTRESS. PT AGREES TO KEEP 02 ON. WILL CON'T TO MONITOR. INCREASE IN OXYGEN NEEDS REPORTED TO DR. LISA. ORDER FOR AM ABG RECEIVED.
--- NOTE | 2020-03-09 21:00 | NUR ---
SCHEDULED MEDICATIONS ADMINISTERED. SEE E-MAR. R AC # 22G OCCLUDED. SITE D/C'D. CATH INTACT. NEW SITE TO R- #20G X1 ATTEMPT. PHYSICAL ASSESMENT COMPLETE.
[2020-03-10] VITALS (23 sets, daily range): BP systolic 99–220; BP diastolic 47–115
--- NOTE | 2020-03-10 03:05 | NUR ---
WINSTON RT IN ROOM OBTAINING ABG.
--- NOTE | 2020-03-10 04:50 | NUR ---
PT APPEARS PALE, VISIBLE INCREASE WORK OF BREATHING, TACHYPNIC WITH A RATE IN THE 30S. HYPERTENSIVE. Sp02 SUSTATINING 85-88%. HYPERTENSIVE. PT IS AGITATED. HIGH FLOW O2 INCREASED TO 15L/MIN HUMIDIFIED VIA NC WITH NO CHANGE IN SATS, SWITCHED TO NON-REBREATHER WITH NO CHANGE IN SATS. ATTEMPTED TO GIVE PT CLONIDINE. PT SPITS BACK OUT. DR. LISA INFORMED OF PT STATUS. ORDER IS FOR IV HYDRALAZINE AND LASIX X1 AND TX TO ICU WITH VAPOTHERM.
[2020-03-10 04:54] LABS: HEMATOCRIT 32.3 % (39.0-50.0); HEMOGLOBIN 10.6 g/dl (14.0-18.0); IMMATURE GRANULOCYTES 1.9 % (0.0-5.0); MEAN CELL VOLUME 90.7 fL CALC (80.0-100.0); MEAN CORPUSCULAR HGB 29.8 pG CALC (26.0-32.0); MEAN CORPUSCULAR HGB CONC 32.8 g/dL CAL (32.0-36.0); NEUT# 4.09 thou/uL (1.82-7.42); RED BLOOD COUNT 3.56 mill/uL (4.70-6.10); RED CELL DISTRI WIDTH 13.1 % (11.5-15.5)
--- NOTE | 2020-03-10 04:55 | NUR ---
PATIENT CALLED AND STATED THAT HE THOUGHT THAT HIS SUGAR WAS DROPPING. PAITENT WAS SHAKEY AND ACCU-CHECK WAS DONE-44. IV D10 WAS HUNG LEFT AC IV SITE PER PROTOCOL AND PATIENT TAKING PEANUT BUTTER CRACKERS AND OJ BY MOUTH. PATIENT STATES THAT HE IS STARTING TO FEEL BETTER. WILL CONT TO MONITOR.
--- NOTE | 2020-03-10 05:05 | NUR ---
LASIX AND APRESOLINE ADMINISTERED, SEE E-MAR. PT TRANSFERRED TO ICU 6 IN BED. BEDSIDE REPORT GIVEN TO Jimmie CONWAY LPN.
--- NOTE | 2020-03-10 05:10 | NUR ---
[id number] rec'd per bed to icu 6 from [facility]. very restless. 100% nrb cont. proned pt with much difficulty. sitters x4 assisted with proning. pt cont to be restless. rt notified of need for vapotherm. vital signs taken with much difficulty. pt cont to be restless. rt was notified again of need for vapotherm. zahra ward talked to dr dejesus. ativan 1mg iv, morphine 2mg iv per zahra ward. tylenol 650mg supp inserted for temp. sitters x4 remain @ bedside proning pt. rt notified multiple times of need for vapotherm. sao2 81-86%. o2 cont per nrb. day shift rt arrived @ 0610 & began vapotherm. sao2 eventually increased to 95-100%. dr dejesus called this promotion writer @ 0615. updated on pts condition. orders rec'd.
[2020-03-10 05:19] LABS: ALBUMIN 3.3 g/dL (3.2-5.0); BILIRUBIN, TOTAL 0.4 mg/dL (0.0-1.4); C-REACTIVE PROTEIN 6.5 mg/dL (0-0.9); CREATININE 2.6 mg/dL (0.7-1.3); TOTAL PROTEIN 6.6 g/dL (6.3-8.2)
[2020-03-10 05:20] LABS: POTASSIUM 5.2 mmol/l (3.5-5.1)
--- NOTE | 2020-03-10 07:40 | NUR ---
RECEIVED REPORT FROM MONI BELTRAN.
--- NOTE | 2020-03-10 08:30 | NUR ---
PT RESTING IN BED, PRONE POSITION, CUFFS IN PLACE WITH GOOD CIRCULATION. SITTER AT BEDSIDE. VITALS STABLE ON MONITOR. PT IN NO VISIBLE DISTRESS. LINENS CHANGED, PT REPOSITIONED.
--- NOTE | 2020-03-10 08:37 | NUR ---
PT PLACED ON VAPOTHREM 40L 100% SPO2 100. RN AWARE AND AT BEDSIDE
--- NOTE | 2020-03-10 09:15 | NUR ---
CHANGED FIO2 TO 75%, CHANGED FLOW ON VAPOTHERM TO 35 L/MIN.
--- NOTE | 2020-03-10 10:30 | NUR ---
IV MEDS INFUSING WITHOUT DIFFICULTY. NASAL CANULA IN PLACE. SITTER REMAINS AT BEDSIDE.
--- NOTE | 2020-03-10 12:20 | NUR ---
PT RESTING. NO DISTRESS NOTED. VITALS STABLE ON MONITOR. REFUSES TO STAY AWAKE TO EAT LUNCH. AVERY DRAINING CLEAR YELLOW URINE.
--- NOTE | 2020-03-10 14:06 | NUR ---
SEMIFOWLERS IN BED. SITTER AT BEDSIDE. VITALS STABLE. AVERY DRAINING CLEAR YELLOW URINE. BED IN LOW POSITION. VAPOTHERM IN PLACE.IV MEDS INFUSING WITHOUT DIFFICULTY.
--- NOTE | 2020-03-10 16:15 | NUR ---
PT RESTING. VAPOTHERM REPLACED ON PT, PT PULLS OFF WITH OCCASSIONAL AGITATION. VITALS STABLE. NO DISTRESS NOTED. SITTER AT BEDSIDE.
--- NOTE | 2020-03-10 18:06 | NUR ---
RESTING IN BED ON LEFT SIDE. AVERY DRAINING YELLOW URINE. CUFFS TO LEFT FOOT WITH GOOD CIRCULATION. SECURITY/SITTER REMAINS AT BEDSIDE. VITALS STABLE. BED IN LOW POSITION.
--- NOTE | 2020-03-10 20:38 | NUR ---
PT. CONTINUES TO REMOVE OXYGEN FROM NARES AND RE-APPLICATION NUMEROUS TIMES AND PT. WILL SMACK AT STAFF. PT. WILL NOT TAKE PO MEDS EITHER AND SPAT THEM AT STAFF WELL ATTEMPTING TO SWING AT STAFF. VAPOTHERM IS SET TO 75% 35LITERS/MIN, SPO2 UP TO 92% WHEN PT. WILL KEEP IT IN NARES AND WILL DESAT INTO THE 80'S WHEN REMOVED. ATTEMPTED TO RE-ORIENT AND RE-EDUCATE PT. WITHOUT SUCCESS. BOOT WITH AMBER WRAP IN PLACE TO RLE. CALL LIGHT IS IN REACH.
--- NOTE | 2020-03-10 21:34 | NUR ---
PT. CONTINUES TO REMOVE O2 AND SPO2 DECREASING WELL PULLING AT AVERY CATHETER, NOTIFIED DR. LISA OF THIS WELL GIVING PT. ONE TIME DOSE OF ZYPREXA. ALSO NOTIFIED HIM OF PT. NOT TAKING PO 2100 MEDS; NEW ORDERS RECEIVED AND TO BE CARRIED OUT.
--- NOTE | 2020-03-10 22:00 | NUR ---
PT. REMAINS NON-COMPLIANT WITH KEEPING O2 ON AND PULLING AT CORDS; RESTRAINTS APPLIED PER ORDER TO BILATERAL WRIST RESTRAINTS WELL ATIVAN X1 DOSE GIVEN; WILL REASSESS. SPO2 BACK UP TO 91% WITH O2 INFUSING PER ORDER. WILL CONTINUE TO MONITOR.
[2020-03-11] VITALS (42 sets, daily range): BP systolic 68–206; BP diastolic 20–114
--- NOTE | 2020-03-11 | NUR ---
RESTRAINTS RELEASED FOR REPOSITIONING AND ROM;PT. CONTINUES TO ATTEMPT TO PULL AT CORDS/LINES; SEE RESTRAINT INTERVENTION. PO FLUIDS OFFERED AND REFUSES. SPO2 93%. AVERY IN PLACE.
--- NOTE | 2020-03-11 01:06 | NUR ---
DR. RETANA CALLED AND NOTIFIED HIM OF PT'S DESATURATION INTO THE 70'S AND RESTLESSNESS; NEW ORDERS RECEIVED FOR INTUBATION. NURSING MANAGER SOCIAL WORK, RT , AND ER MD DR. GASTELUM NOTIFIED BY MANAGER SOCIAL WORK.
--- NOTE | 2020-03-11 02:20 | NUR ---
[id number]- DR. GASTELUM IN AT BEDSIDE ALONG WITH OTHER STAFF NURSE, THIS FARM PRODUCTS SHIPPER, AND RT WELL NURSING ASSOCIATE PROFESSOR OF KINESIOLOGY. RSI COMPLETED BY DR. GASTELUM. PT. INTUBATED WITH 8MM ET TUBE @24CM AT THE LIP BY DR. GASTELUM AND VENT SETTINGS PLACED PER RT.. RIGHT SUBCLAVIAN TLC PLACED BY DR. GASTELUM X1 ATTEMPT. OG TUBE PLACED AND IS AT 70CM LINE, X1 ATTEMPT AND PLACEMENT IS VERFIED BY AUSCILTATION AND HOOKED UP TO LIS; DIPROVAN STARTED @5MCG/KG/MIN AND TITRATED UP TO 35MCG/KG/MIN PER PROTOCOL. CENTRAL LINE,ET TUBE, AND OG TUBE PLACEMENT VERIFIED BY XRAY. DR. RETANA UPDATED BY JOSE ACOSTA ON PT'S STATUS AND RECEIVED NEW ORDER FOR PRN FENANYL FOR PT'S AGGITATION AND TO BE CARRIED OUT.
--- NOTE | 2020-03-11 05:30 | NUR ---
AM LABS DRAWN VIA TLC AND FLUSHED PER PROTOCOL; ET TUBE AND OG TUBE IN PLACE; VENT SETTINGS AJUSTED BY RT. DIPROVAN GTT INFUSING @CONTINUED RATE OF 35MCG/KG/MIN. SPO2 100%. WILL CONTINUE TO MONITOR. RESTRAINTS IN PLACE WITH GOOD PULSES. CALL LIGHT IS IN REACH. SHACKLE REMAINS TO LEFT ANKLE. GUARD OUTSIDE ROOM.
[2020-03-11 05:44] LABS: HEMATOCRIT 31.6 % (39.0-50.0); HEMOGLOBIN 10.2 g/dl (14.0-18.0); IMMATURE GRANULOCYTES 1.4 % (0.0-5.0); MEAN CELL VOLUME 91.3 fL CALC (80.0-100.0); MEAN CORPUSCULAR HGB 29.5 pG CALC (26.0-32.0); MEAN CORPUSCULAR HGB CONC 32.3 g/dL CAL (32.0-36.0); NEUT# 5.97 thou/uL (1.82-7.42); RED BLOOD COUNT 3.46 mill/uL (4.70-6.10); RED CELL DISTRI WIDTH 13.2 % (11.5-15.5)
[2020-03-11 06:07] LABS: ALKALINE PHOSPHATASE 79 u/l (38-126); BILIRUBIN, TOTAL 0.3 mg/dL (0.0-1.4); BUN 69 mg/dL (9-20); BUN/CREATININE RATIO 20 (12-20 (CALC)); CARBON DIOXIDE 17 mmol/l (22-30); CHLORIDE 114 mmol/l (95-108); CREATININE 3.4 mg/dL (0.7-1.3); GFR 19 ML/MIN (>=60 (CALC)); GFR FOR AFR.AMER. 23 ML/MIN (>=60 (CALC)); SGOT/AST 43 u/l (17-59); SODIUM 143 mmol/l (137-146); TOTAL PROTEIN 6.2 g/dL (6.3-8.2)
[2020-03-11 06:14] LABS: ANION GAP 18 (6-22 (CALC)); C-REACTIVE PROTEIN > 9.0 mg/dL (0-0.9)
[2020-03-11 06:16] LABS: POTASSIUM 5.9 mmol/l (3.5-5.1)
--- NOTE | 2020-03-11 06:25 | NUR ---
PT. INTERMITTENTLY SLIGHTLY RESTLESS AND DIPROVAN TITRATED UP TO 40MCG/KG/MIN. WILL CONTINUE TO MONITOR.TEMP 98.7 AND #20 GAUGE REMOVED TO RAC WITH CATHETER TIP INTACT.
--- NOTE | 2020-03-11 07:25 | NUR ---
PT RESTING IN BED IN NO APPARENT DISTRESS, INTUBATED AND SEDATED SEE FLOWSHEET FOR VENT SETTINGS, LUNGS COARSE, FiO2 AT 80%, SKIN INTACT OG INTACT TO LIS, CLEAR DRNG NOTED, RLE WITH SUGARTONG SPLINT INTACT , GOOD CAP REFILL AND TEMP NOTED TO DIGITS, GUARD AT BEDSIDE, RIJ TLC INTACT WITH PROPOFOL AND NS INFUSING ORDERED. PROPOFOL TITRATED FOR COMFORT. REPOSITIONED Q2H, MOUTH CARE PROVIDED, OG INTACT WITH PLACEMENT VERIFIED, CALL COTTON WITHIN REACH, EASILY VISIBLE FROM NURSES STATION
--- NOTE | 2020-03-11 09:15 | NUR ---
PT RESTING, REPOSITIONED FOR COMFORT,AM LABS REVIEWED WILL ADDRESS WITH MD ON ROUNDS, NPO STATUS MAINTAINED AND OG INTACT WITH PLACEMENT VERIFIED, RIJ TLC INTACT, DRESSING CD&I WITH GOOD ASPIRATE NOTED, AFEBRILE, MONITOR BP CLOSELY RELATED TO HYPOTENSION, WILL NOTIFY MD IF CONTINUES
--- NOTE | 2020-03-11 10:00 | NUR ---
PT MEDICATED FOR S/S OF PAIN, LEVOPHED GTT STARTED FOR HYPOTENSION WITH GOAL MAP >65, ACCU CHECK 166 THIS AM AND WILL RECHECK AT 1100
--- NOTE | 2020-03-11 11:00 | NUR ---
TELE CONTINUES READING SR RATE IN THE 80'S, BP IMPROVED GUARD REMAINS AT BEDSIDE. WILL CONTINUE TO MONITOR.
--- NOTE | 2020-03-11 12:05 | NUR ---
PT RESTING NO S/S OF DISTRESS OR DISCOMFORT, REMAINS INTUBATED AND SEDATED, AVERY INTACT AND RESTRAINTS INUSE TO PREVENT SELF EXTUBATION, GUARD REMAINS AT BEDSIDE, AND AIRBORNE PRECAUTIONS MAINTAINED,
--- NOTE | 2020-03-11 13:00 | NUR ---
PT RESTING MOUTH CARE PROVIDED Q2H AND PRN WELL REPOSITIONED, GUARD REMAINS AT BEDSIDE, WILL CONTINUE TO MONITOR.
--- NOTE | 2020-03-11 13:10 | NUR ---
AWARE OF ABG RESULTS, OKANNED CONSULT FOR WORSENING KIDNEY FUNCTION
--- NOTE | 2020-03-11 14:10 | NUR ---
PT RESTING NO CHAGNES NOTED, LEVOPHED REMAINS AT STARTING DOSE WTIH MAP MAINTAINED >65, WILL CONTINUE TO MONITOR.
--- NOTE | 2020-03-11 14:47 | NUR ---
PT MEDICATED WITH ABT ORDERED, TLC FLUSHED PER PROTOCOL, NO S/S OF DISTRESS OR DISCOMFORT NOTED, HEPARIN SC GIVEN WELL, WILL CONTINUE TO MONITOR
--- NOTE | 2020-03-11 15:35 | NUR ---
PT RESTINGNO S/S OF DISTRESS OR DISCOMFORT, CALL COTTON WITHIN REACH GUARD REMAINS AT BEDSIDE
--- NOTE | 2020-03-11 16:55 | NUR ---
PT RESTING ACCU CHECK COMPLETED WILL COVER ORDERED, NO S/S OF DISTRESS OR DISCOMFORT NOTED, AIRBORNE PRECAUTIONS REMAIN IN PLACE
--- NOTE | 2020-03-11 17:45 | NUR ---
PT RESTING NO CHANGE IN VENT SETTINGS ACCU CHECK COVERAGE GIVEN ORDERED, WILL CONTINUE TO MONITOR
--- NOTE | 2020-03-11 17:58 | NUR ---
CONSULT CALLED TO .
--- NOTE | 2020-03-11 18:31 | NUR ---
POOR URINE OUTPUT THIS SHIFT LESS THAN 200 ML, AWARE LIQUETE ALREADY ON CONSULT.
--- NOTE | 2020-03-11 20:15 | NUR ---
PT. SEDATED ON VENT; RESP. EVEN AND UNLABORED. NO DISTRESS NOTED.ET TUBE AT 24CM TO LIP. VENT SETTINGS PER RT; SEE INTERVENTION. DIPROVAN GTT INFUSING @70MCG/KG/MIN ALONG WITH LEVOPHED GTT @3MCG/MIN B/P 103/55.D5 WITH BICARB STARTED PER ORDER. RIGHT SUBCLAVIAN TLC INTACT. BROOMCORN SORTER IN PLACE AND READING SR. OG TUBE IN PLACE AND VERFIIED PLACEMENT BY AUSCILTATION AND SET TO LIS. SCD TO LLE AND SHACKLE IN PLACE. BILATERAL WRIST RESTRAINTS IN PLACE TO PREVENT PULLING OUT OF LINES/TUBING IN PLACE;PULSES PRESENT AND GOOD CIRCULATION NOTED. ORAL CARE PROVIDED. CALL LIGHT IS IN REACH.
--- NOTE | 2020-03-11 20:53 | NUR ---
PT MEDICATED ORDERED. OG TUBE PLACEMENT VERIFIED VIA AUSCULTATION. FLUSHED WITH WATER BEFORE AND AFTER MEDICATION ADMINISTRATION, SUCTION HELD AT THIS TIME. MONITORS IN PLACE. VSS. WILL CONTINUE TO MONITOR.
--- NOTE | 2020-03-11 22:11 | NUR ---
NEW BOTTLE OF DIPROVAN HUNG AND CONTINUED AT SAME RATE; PT. REMAINS SEDATED; VSS. WILL CONTINUE TO MONITOR.
--- NOTE | 2020-03-11 23:02 | NUR ---
PT REPOSITIONED IN BED. NO BM NOTED AT THIS TIME. AVERY REMAINS PATENT DRAINING TO GRAVITY. LIS REAPPLIED TO OG. MONITORS IN PLACE. ORAL CARE PROVIDED. WILL CONTINUE TO MONITOR.
[2020-03-12] VITALS (15 sets, daily range): BP systolic 100–170; BP diastolic 51–73
--- NOTE | 2020-03-12 00:28 | NUR ---
PT. REMAINS SEDATED WITH NO CHANGE IN GTTS OR VENT SETTINGS; NEW BOTTLE OF DIPROVAN HUNG PER ORDER. WILL CONTINUE TO MONITOR. LIVESTOCK FEEDER IN PLACE. VSS.
--- NOTE | 2020-03-12 03:30 | NUR ---
PT. RECEIVED DEEP SUCTIONING AND SMALL AMOUNT OF SECRETIONS REMOVED.SPO2 95%. VENT SETTINGS REMAIN THE SAME. REPOSITIONED IN BED. HOB ELEVATED.
--- NOTE | 2020-03-12 05:00 | NUR ---
DIPROVAN GTT REMAINS INFUSING WELL, NEW BOTTLE HUNG AT THIS TIME. VENT SETTINGS REMAIN THE SAME; SPO2 98%. WILL CONTINUE TO MONITOR.
[2020-03-12 06:01] LABS: ALBUMIN 2.7 g/dL (3.2-5.0)
--- NOTE | 2020-03-12 06:35 | NUR ---
ADVANCED OG TUBE 10 CM PER RECOMMENDATION OF DYLON IN RADIOLOGY. OG TUBE PLACEMENT VERIFIED BY AUSCILTATION. NOTIFIED DR. PERKINS OF CRITICAL BUN/CREATININE WELL POTASSIUM.
--- NOTE | 2020-03-12 06:58 | NUR ---
DR. PERKINS CALLED AND NOTIFIED STAFF THAT HE WILL BE WORKING ON TRANSFER FOR PT. TO [facility] AND WILL SPEAK WITH DR. ALFARO WELL.
--- NOTE | 2020-03-12 07:00 | NUR ---
PT REPORT RECEIVED FROM PHYSICIAN VICE PRESIDENT. PT REMAINS ON VENT AND CENTRAL LINE, DIPROVAN AT 70 MCG. PT DOES NOT AROUSE TO VERBAL RESPONSE
--- NOTE | 2020-03-12 09:30 | NUR ---
SPOKE WITH [facility] FOR TRANSFER, STATES WILL SPEAK TO HOSPITALIST AND TRY FOR ACCEPTING DOCTOR AND ROOM
--- NOTE | 2020-03-12 10:16 | NUR ---
WAITING FOR CALL BACK FROM [facility]
--- NOTE | 2020-03-12 11:14 | NUR ---
SPOKE WITH NURSE FELIPE AT [facility] FOR UPDATE THAT PT IS TO BE TRANSFERRED TO [facility] TO ICU 522.
--- NOTE | 2020-03-12 11:17 | NUR ---
FIO2 INCREASED TO 100% DUE TO 87% SATURATION.
--- NOTE | 2020-03-12 11:25 | NUR ---
CALLED [facility] FOR TRANSFER, 30 MIN ETA
--- NOTE | 2020-03-12 12:10 | NUR ---
CALLED TO GIVE REPORT TO [facility] ICU 503, AND WAS TOLD THEY HADNT ASSIGNED A NURSE YET TO THAT ROOM WILL CALL BACK FOR REPORT. ADVISED [facility] WAS ALEADY HERE FOR TRANSPORT
--- NOTE | 2020-03-12 12:35 | NUR ---
PT TRANSFERRED TO [facility] PER [facility].
== END 2020-03-12 12:35 | DRG 208 ==
LOC: ED 13:31 → ED-I 16:39 → ED 16:53 → ED-I 16:54 → MS2 03-07 09:17 → ICU 03-10 05:30
PROVIDERS: Family Medicine; Internal Medicine Nephrology; Nurse Practitioner Family; ADMIT Internal Medicine; ATTEND Internal Medicine
PROC: XW033E5 Introduction of Remdesivir Anti-infective into Peripheral Vein, Percutaneous Approach, New Technology Group 5 (ICD-10-PCS; principal; 2020-03-10)
PROC: 5A1945Z Respiratory Ventilation, 24-96 Consecutive Hours (ICD-10-PCS; 2020-03-11)
PROC: 0BH17EZ Insertion of Endotracheal Airway into Trachea, Via Natural or Artificial Opening (ICD-10-PCS; 2020-03-11)
PROC: 02HV33Z Insertion of Infusion Device into Superior Vena Cava, Percutaneous Approach (ICD-10-PCS; 2020-03-11)
DX: U07.1 COVID-19 (principal); J12.89 Other viral pneumonia; J96.01 Acute respiratory failure with hypoxia; N17.0 Acute kidney failure with tubular necrosis; E87.1 Hypo-osmolality and hyponatremia; E87.5 Hyperkalemia; S82.61XA Displaced fracture of lateral malleolus of right fibula, initial encounter for closed fracture; I12.9 Hypertensive chronic kidney disease with stage 1 through stage 4 chronic kidney disease, or unspecified chronic kidney disease; E11.22 Type 2 diabetes mellitus with diabetic chronic kidney disease; N18.30 Chronic kidney disease, stage 3 unspecified; E86.9 Volume depletion, unspecified; I95.9 Hypotension, unspecified; E83.39 Other disorders of phosphorus metabolism; F31.9 Bipolar disorder, unspecified; F29 Unspecified psychosis not due to a substance or known physiological condition; I48.91 Unspecified atrial fibrillation; K21.9 Gastro-esophageal reflux disease without esophagitis; J45.909 Unspecified asthma, uncomplicated; F20.9 Schizophrenia, unspecified; X58.XXXA Exposure to other specified factors, initial encounter; Z79.4 Long term (current) use of insulin
CPT/HCPCS: J2060; S0164; S0166

== ENCOUNTER 2020-06-10 15:56 | Emergency (ER) | payer OTHER ==
[~2020-06-10] VITALS: Ht 177.8 cm; Wt 95.0 kg
[~2020-06-10 15:56] MED LIST changes: +ASPIRIN 8181 MG PO; +DECADRON2 MG PO; +NEURONTIN250 MG/5 M PO; +SEROQUEL100 MG PO; +TRAMADOL HYDROC50 M1 PO; +[UNRECOGNIZED DRUG - OTHER] TOP
[2020-06-10 17:19] LABS: HEMATOCRIT 20.6 % (39.0-50.0); IMMATURE GRANULOCYTES 2.5 % (0.0-5.0); MEAN CELL VOLUME 88.4 fL CALC (80.0-100.0); MEAN CORPUSCULAR HGB CONC 30.6 g/dL CAL (32.0-36.0); NEUT# 5.07 thou/uL (1.82-7.42); RED BLOOD COUNT 2.33 mill/uL (4.70-6.10); RED CELL DISTRI WIDTH 15.5 % (11.5-15.5)
[2020-06-10 17:25] LABS: HEMOGLOBIN 6.3 g/dl (14.0-18.0)
[2020-06-10 17:50] LABS: BILIRUBIN, TOTAL 0.5 mg/dL (0.0-1.4); CREATININE 3.4 mg/dL (0.7-1.3); POTASSIUM 3.7 mmol/l (3.5-5.1)
[2020-06-10 17:51] LABS: TOTAL PROTEIN 4.4 g/dL (6.3-8.2)
[2020-06-10 18:34] LABS: URINE BILIRUBIN - DIPSTICK NEGATIVE (NEGATIVE); URINE BLOOD DIPSTICK NEGATIVE (NEGATIVE); URINE COLOR YELLOW; URINE GLUCOSE - DIPSTICK NEGATIVE (NEGATIVE); URINE KETONE NEGATIVE (NEGATIVE); URINE LEUK ESTERASE NEGATIVE (NEGATIVE); URINE NITRITE - DIPSTICK NEGATIVE (Negative); URINE PROTEIN - DIPSTICK 100 mg/dL (NEG-TRACE); URINE UROBILINOGEN - DIPSTICK 0.2 E.U./dL (0.2)
[2020-06-10 18:40] LABS: URINE RBC 0-2 RBC/hpf (0-5); URINE WBC 0-2 WBC/hpf (0-5)
[2020-06-10 22:06] VITALS: BP 92/64
[2020-06-10 22:11] VITALS: BP 92/64
== END 2020-06-10 22:12 | disposition short-term general hospital (02) | DRG 999 ==
LOC: ED 15:56
PROVIDERS: Family Medicine
PROC: 06HY33Z Insertion of Infusion Device into Lower Vein, Percutaneous Approach (ICD-10-PCS; principal; 2020-06-10)
PROC: 30243N1 Transfusion of Nonautologous Red Blood Cells into Central Vein, Percutaneous Approach (ICD-10-PCS; 2020-06-10)
DX: R41.82 Altered mental status, unspecified (principal); L89.154 Pressure ulcer of sacral region, stage 4; N18.6 End stage renal disease; J18.9 Pneumonia, unspecified organism; I12.0 Hypertensive chronic kidney disease with stage 5 chronic kidney disease or end stage renal disease; D64.9 Anemia, unspecified; E11.22 Type 2 diabetes mellitus with diabetic chronic kidney disease; I95.9 Hypotension, unspecified; F60.2 Antisocial personality disorder; J45.909 Unspecified asthma, uncomplicated; I48.91 Unspecified atrial fibrillation; K21.9 Gastro-esophageal reflux disease without esophagitis; F25.0 Schizoaffective disorder, bipolar type; Z91.15 Patient's noncompliance with renal dialysis; Z99.2 Dependence on renal dialysis; Z79.4 Long term (current) use of insulin; Z20.822 Contact with and (suspected) exposure to COVID-19
CPT/HCPCS: P9016

== ENCOUNTER 2020-09-02 12:08 | Emergency (ER) | payer OTHER ==
[~2020-09-02] VITALS: Ht 177.8 cm; Wt 90.0 kg
[2020-09-02] MEDS ORDERED: METOPROL TAR25 MG PO (12:45)
[2020-09-02] MEDS ORDERED: MULTI VIT PO (12:46)
[2020-09-02] MEDS ORDERED: ZINC50 M1 PO (12:47)
[2020-09-02] MEDS ORDERED: CALCIUM500 M5 PO (12:48)
[2020-09-02] MEDS ORDERED: VITAMIN C500 M5 PO (12:49)
[2020-09-02] MEDS ORDERED: HALDOL5 M1 PO (12:50)
[2020-09-02] MEDS ORDERED: LORAZEPAM0.5 MG PO (12:51)
[2020-09-02 12:52] LABS: HEMOGLOBIN 7.7 g/dl (14.0-18.0); IMMATURE GRANULOCYTES 4.2 % (0.0-5.0); MEAN CELL VOLUME 87.4 fL CALC (80.0-100.0); MEAN CORPUSCULAR HGB 26.9 pG CALC (26.0-32.0); MEAN CORPUSCULAR HGB CONC 30.8 g/dL CAL (32.0-36.0); NEUT# 8.67 thou/uL (1.82-7.42); RED BLOOD COUNT 2.86 mill/uL (4.70-6.10); RED CELL DISTRI WIDTH 15.3 % (11.5-15.5)
[2020-09-02 13:35] LABS: ALKALINE PHOSPHATASE 88 u/l (38-126); BILIRUBIN, TOTAL 0.4 mg/dL (0.0-1.4); BUN 48 mg/dL (9-20); BUN/CREATININE RATIO 21 (12-20 (CALC)); CHLORIDE 108 mmol/l (95-108); CREATININE 2.3 mg/dL (0.7-1.3); GFR 29 ML/MIN (>=60 (CALC)); GFR FOR AFR.AMER. 36 ML/MIN (>=60 (CALC)); MAGNESIUM 1.5 mg/dL (1.6-2.3); SGOT/AST 19 u/l (17-59); SODIUM 133 mmol/l (137-146)
[2020-09-02 13:36] LABS: ALBUMIN 2.8 g/dL (3.2-5.0); ANION GAP 11 (6-22 (CALC)); CARBON DIOXIDE 19 mmol/l (22-30); POTASSIUM 5.2 mmol/l (3.5-5.1)
[2020-09-02 16:34] LABS: URINE BILIRUBIN - DIPSTICK NEGATIVE (NEGATIVE); URINE BLOOD DIPSTICK NEGATIVE (NEGATIVE); URINE COLOR YELLOW; URINE GLUCOSE - DIPSTICK NEGATIVE (NEGATIVE); URINE KETONE NEGATIVE (NEGATIVE); URINE LEUK ESTERASE NEGATIVE (NEGATIVE); URINE PROTEIN - DIPSTICK 100 mg/dL (NEG-TRACE); URINE SPECIFIC GRAVITY 1.025; URINE UROBILINOGEN - DIPSTICK 0.2 E.U./dL (0.2)
[2020-09-02 16:35] LABS: URINE NITRITE - DIPSTICK NEGATIVE (Negative)
[2020-09-02 16:47] LABS: URINE RBC 0-2 RBC/hpf (0-5); URINE WBC 0-2 WBC/hpf (0-5)
[2020-09-02 21:51] VITALS: BP 110/56
== END 2020-09-02 21:52 | DRG 684 ==
LOC: ED 12:08
PROC: 0T9B70Z Drainage of Bladder with Drainage Device, Via Natural or Artificial Opening (ICD-10-PCS; principal; 2020-09-02)
DX: N17.9 Acute kidney failure, unspecified (principal); E87.5 Hyperkalemia; D64.9 Anemia, unspecified; E11.9 Type 2 diabetes mellitus without complications; I10 Essential (primary) hypertension; L89.159 Pressure ulcer of sacral region, unspecified stage; F31.9 Bipolar disorder, unspecified; J45.909 Unspecified asthma, uncomplicated; I48.91 Unspecified atrial fibrillation; K21.9 Gastro-esophageal reflux disease without esophagitis; F25.9 Schizoaffective disorder, unspecified; F60.2 Antisocial personality disorder; S80.811A Abrasion, right lower leg, initial encounter; X58.XXXA Exposure to other specified factors, initial encounter; Z79.4 Long term (current) use of insulin; Z86.16 Personal history of COVID-19; Z20.822 Contact with and (suspected) exposure to COVID-19

== ENCOUNTER 2020-10-01 12:24 | Observation (INO) | payer OTHER ==
[~2020-10-01] VITALS: Ht 177.8 cm; Wt 127.6 kg
[~2020-10-01 12:24] MED LIST changes: +CALCIUM500 M5 PO; +HALDOL5 M1 PO; +LORAZEPAM0.5 MG PO; +METOPROL TAR25 MG PO; +MULTI VIT PO; +VITAMIN C500 M5 PO; +ZINC50 M1 PO
--- NOTE | 2020-10-01 12:39 | NUR ---
WALKED TO THE BED WITHOUT DIFFICUTLY
--- NOTE | 2020-10-01 12:45 | NUR ---
PATIENT RESTING, EYES CLOSED, NO DISTRESS.
--- NOTE | 2020-10-01 12:50 | NUR ---
ON ASSESSMENT, PATIENT APPEARS DROWSY, PATIENT DOES AWAKEN AND ANSWER QUESTIONS APPROPRIATELY AND MAEW. RESP EVEN AND UNLAOBRED. PATIENT IS IN NO OBVIOUS DISTRESS AT THIS TIME.
--- NOTE | 2020-10-01 12:50 | NUR ---
PATIENT AWAKENS EASILY. ANSWERS QUESTIONS AND FOLLOWS COMMANDS.
[2020-10-01 13:04] LABS: HEMATOCRIT 25.9 % (39.0-50.0); HEMOGLOBIN 7.8 g/dl (14.0-18.0); IMMATURE GRANULOCYTES 1.7 % (0.0-5.0); MEAN CELL VOLUME 84.6 fL CALC (80.0-100.0); MEAN CORPUSCULAR HGB 25.5 pG CALC (26.0-32.0); MEAN CORPUSCULAR HGB CONC 30.1 g/dL CAL (32.0-36.0); NEUT# 7.46 thou/uL (1.82-7.42); RED BLOOD COUNT 3.06 mill/uL (4.70-6.10)
[2020-10-01 13:16] LABS: ALBUMIN 2.9 g/dL (3.2-5.0); ALKALINE PHOSPHATASE 68 u/l (38-126); ANION GAP 11 (6-22 (CALC)); BUN 31 mg/dL (9-20); BUN/CREATININE RATIO 15 (12-20 (CALC)); CARBON DIOXIDE 25 mmol/l (22-30); CHLORIDE 99 mmol/l (95-108); GFR 34 ML/MIN (>=60 (CALC)); GFR FOR AFR.AMER. 42 ML/MIN (>=60 (CALC)); POTASSIUM 4.5 mmol/l (3.5-5.1); SGOT/AST 18 u/l (17-59); SODIUM 131 mmol/l (137-146); TOTAL PROTEIN 6.2 g/dL (6.3-8.2)
[2020-10-01 13:37] LABS: URINE BILIRUBIN - DIPSTICK NEGATIVE (NEGATIVE); URINE BLOOD DIPSTICK NEGATIVE (NEGATIVE); URINE COLOR YELLOW; URINE GLUCOSE - DIPSTICK 250 mg/dL (NEGATIVE); URINE KETONE NEGATIVE (NEGATIVE); URINE LEUK ESTERASE NEGATIVE (NEGATIVE); URINE PH 7.5 (4.5-8.0); URINE PROTEIN - DIPSTICK 100 mg/dL (NEG-TRACE); URINE UROBILINOGEN - DIPSTICK 0.2 E.U./dL (0.2)
[2020-10-01 13:39] LABS: URINE NITRITE - DIPSTICK NEGATIVE (Negative)
--- NOTE | 2020-10-01 13:40 | NUR ---
PATIENT RESTING, PLAN REVIEWED, SPECIMENS OBTAINED. MONITORING CLOSELY.
--- NOTE | 2020-10-01 14:20 | NUR ---
PATIENT RESTING, NO CHANGE.
--- NOTE | 2020-10-01 15:15 | NUR ---
SBAR PRINTED TO FLOOR
--- NOTE | 2020-10-01 15:30 | NUR ---
PATIENT IS AWAKE, ANSWERING QUESTIONS. NO DISTRESS.
--- NOTE | 2020-10-01 16:01 | NUR ---
OFFICER CALLING FOR UPDATED MEDLIST FROM FACILITY.
[2020-10-01] MEDS ORDERED: ADVAIR DISK1 IN (16:13)
[2020-10-01] MEDS ORDERED: LANTUS100 UNIT SC (16:14)
[2020-10-01] MEDS ORDERED: DIPHENHYDRAM25 MG PO (16:14)
--- NOTE | 2020-10-01 16:14 | NUR ---
GOPI SANTIAGO [facility]
[2020-10-01] MEDS ORDERED: FERROUS SULFAT325 MG PO (16:15)
[2020-10-01] MEDS ORDERED: RISPERIDONE2 MG PO (16:15)
[2020-10-01] MEDS ORDERED: FAMOTIDINE20 M1 PO (16:17)
[2020-10-01] MEDS ORDERED: LISINOPRIL20 MG PO (16:18)
[2020-10-01] MEDS ORDERED: HYDROCHLOROT12.5 MG PO (16:19)
--- NOTE | 2020-10-01 16:20 | NUR ---
PATIENT TAKEN BY THIS NURSE TO ICU ON [employer] FABRICATING SUPERVISOR.
[2020-10-01 17:00] VITALS: BP 194/105
--- NOTE | 2020-10-01 17:00 | NUR ---
PT ARRIVES TO ICU 6 BY STRETCHER FROM THE ER ACCOMPANIED BY NORM GARCIA. PT IS ALERT, ORIENTED X 3. LUNGS CLEAR, RA. PT IS POLITE. PT STATES PAIN TO RIGHT RIBS FROM FALLING ON HIS RIGHT ARM, MAKES IT PAINFUL TO COUGH. PT PROVIDED SNACK. GUARDS X 2 AT BEDSIDE.
[2020-10-01 18:00] VITALS: BP 159/95
[2020-10-01 20:00] VITALS: BP 189/96
[2020-10-01 20:25] VITALS: BP 192/99
--- NOTE | 2020-10-01 20:28 | NUR ---
PATIENT GIVEN IV APRESOLINE FOR BP 180'S-190'S SYSTOLIC. PATIENT LAYS IN DERAS'S POSITION. HE DOES AWAKEN WITH VERBAL STIMULI BUT DOES NOT STAY AWAKE. DOES FOLLOW COMMANDS AFTER REPETITION. ABLE TO LIFT BILAT LEGS UP, WEAK PRODUCTION CORRUGATOR BILATERALLY. NO DROOP NOTED. ORIENTED TO NAME, . NURSE ASSESSMENT PERFORMED. I ASKED PATIENT IF HE WOULD LIKE TO TAKE HIS BEDTIME MEDS AND HE AGREED, WHEN ASKED IF HE WANTED APPLESAUCE WITH MEDS HE RESPONDED YES, AND OPENED HIS EYES WIDE OPEN AND ASKED FOR A "SODA," AFTER, HE STAYED AWAKE, SWALLOWED ALL OF HIS MEDICATIONS WITHOUT DIFFICULTY, ABLE TO EAT ALL OF HIS APPLESAUCE, DRINK WATER/SODA, REQUESTED A FRUIT BAR, PROVIDED. I DID NOTIFY PATIENT I DID NOT PROVIDE BENADLY THAT WAS PART OF HIS MEDICATIONS TONIGHT BECAUSE HE WAS LAREADY HAVING A DIFFICULT TIME STAYING AWAKE, PATIENT UNDERSTANDS AND AGREES. NO OTHER NEEDS AT THIS TIME. SR/ST ON TELEMETRY, ON RA, O2 SAT 98%. ALEJANDRINA BURGESS ON. HAS A [facility] SITE AND NS INFUSING AT 75 ML/HR. REAL ESTATE REP COUGH NOTED. DENIES PAIN AT THIS TIME. 2 GUARDS AT BEDSIDE. CALL LIGHT WITHIN REACH.
[2020-10-01 22:00] VITALS: BP 181/100
--- NOTE | 2020-10-01 22:27 | NUR ---
PATIENT'S BP CONTINUES TO BE ELEVATED, NOW 180'S SYSTOLIC. CALLED AND SPOKE TO DR RETANA TO NOTIFY, NEW ORDERS GIVEN. IF BP CONTINUES TO BE GREATER THAN 180-200 MMHG AFTER GIVING CLONIDINE 0.1 MG PO X1 AND APRESOLINE IV PRN Q6H, NOTIFY DR RETANA.
--- NOTE | 2020-10-01 22:36 | NUR ---
PATIENT ABLE TO SWALLOW MEDICATION WITH SIPS OF WATER.
--- NOTE | 2020-10-01 23:40 | NUR ---
PATIENT HAS A TEMPERATURE OF 100.2 DEGREES F. PATIENT WAS INSTRUCTED TO PULL HIMSELF UP, DOES MOT STAY AWAKE, DOES NOT FOLLOW ALL OF DIRECTIONS. WAS PULLED UP ASSIST X2. HOB IN HIGH DERAS'S, PATIENT DOES SWALLOW TYLENOL TABLETS. 2 GUARD AT BEDSIDE.
--- NOTE | 2020-10-01 23:57 | NUR ---
RACHEL FROM [facility] CALLED HERE FOR PATIENT UPDATE AND RECENTLAB WORK, PROVIDED.
[2020-10-02] VITALS: BP 145/78
--- NOTE | 2020-10-02 00:32 | NUR ---
PATIENT WAS WASHED UP, LINENS CHANGED. LARGE AQUACELL FOAM PAD APPLIED TO ULCER ON COCCYX, WAS CLEANSED WITH SALINE AND PATTED DRY. PATIENT ABLE TO PARTICIPATE SOMEWHAT, DID NOT OPEN HIS EYES. WAS UNSHCKLED FROM LEFT LEG TO REPOSITION. 2 GUARDS AT BEDSIDE.
[2020-10-02 02:00] VITALS: BP 128/67
--- NOTE | 2020-10-02 03:49 | NUR ---
PATIENT LAYS WITH HOB AT 30 DEGREES. AFEBRILE. OPENS EYES WITH VERBAL STIMULI. NO ACUTE DISTRESS SHOWN. 2 GUARDS AT BEDSIDE.
[2020-10-02 04:00] VITALS: BP 115/76
--- NOTE | 2020-10-02 05:21 | NUR ---
PATIENT REMAINS WITH EYES CLOSED, DOES FOLLOW DIRECTIONS WITH REPETITIVE DIRECTIONS. WAS INCONTINENT OF URINE, CON-CARE PROVIDED, NEW BRIEF APPLIED. HOB AT 30 DEGREES, CALL LIGHT WITHIN REACH. 2 GUARDS AT BEDSIDE. LEFT LEG SHACKLED TO BED.
[2020-10-02 05:36] LABS: HEMATOCRIT 25.6 % (39.0-50.0); HEMOGLOBIN 8.2 g/dl (14.0-18.0); MEAN CELL VOLUME 82.3 fL CALC (80.0-100.0); MEAN CORPUSCULAR HGB 26.4 pG CALC (26.0-32.0); RED BLOOD COUNT 3.11 mill/uL (4.70-6.10)
[2020-10-02 05:52] LABS: CHOLESTEROL HDL RATIO 2.8 (<4.4 (CALC)); MAGNESIUM 1.7 mg/dL (1.6-2.3); POTASSIUM 4.8 mmol/l (3.5-5.1)
[2020-10-02 06:00] VITALS: BP 127/75
[2020-10-02 08:00] VITALS: BP 114/67
--- NOTE | 2020-10-02 08:00 | NUR ---
PT EASILY WAKENED, SEEN ALERT AND ORIENTED X 3. LUNGS WITH SCATTERED CRACKLES, RA. PT INCONTINENT OF URINE. SOMEWHAT MANIPULATIVE. GUARDS X 2 AT BEDSIDE.
--- NOTE | 2020-10-02 08:03 | NUR ---
Pt screened by LUMPIA WRAPPER MAKER. No [employer] WRAPPER MAKER services warranted at this time.
--- NOTE | 2020-10-02 09:29 | NUR ---
placed pt in spont/cpap mode as per sedation vactaion initiated and pt is responsive to commands. pt still groggy, loft rigger to montior and extubate when appropriate. rn aware. aware.
[2020-10-02 10:00] VITALS: BP 108/63
--- NOTE | 2020-10-02 10:31 | NUR ---
PT HAS BEEN TO MRI AND BACK, TOLERATED WELL. PT SEEN BY DR RETANA THIS MORNING, PLAN IS TO CHECK MRI AND IF OKAY, MAY POSSIBLY DISCHARGE BACK TO FACILITY.
--- NOTE | 2020-10-02 11:47 | NUR ---
Patient screened for Physical Therapy, will benefit from Physical Therapy interventions.
--- NOTE | 2020-10-02 12:33 | NUR ---
PT DISCHARGE HAS BEEN PLACED IN COMPUTER. THIS WAS REVIEWED WITH PT, WHO WAS ABLE TO SIGN DISCHARGE FORM. PT AND GUARDS PROVIDED MEAL TRAY, WILL BE LEAVING SOON.
--- NOTE | 2020-10-02 13:42 | NUR ---
PT AND GUARDS WAITING FOR TRANSPORTATION TO ARRIVE. NO CHANGE IN STATUS.
== END 2020-10-02 14:15 | disposition designated cancer center or children's hospital (05) | DRG 948 ==
LOC: ED 12:24 → ED-I 14:37 → ED 15:14 → ICU 15:15
PROVIDERS: Family Medicine; Nurse Practitioner; ADMIT Internal Medicine; ATTEND Internal Medicine
PROC: 3E0234Z Introduction of Serum, Toxoid and Vaccine into Muscle, Percutaneous Approach (ICD-10-PCS; principal; 2020-10-02)
DX: R41.82 Altered mental status, unspecified (principal); R07.81 Pleurodynia; F20.9 Schizophrenia, unspecified; F31.9 Bipolar disorder, unspecified; I10 Essential (primary) hypertension; E11.9 Type 2 diabetes mellitus without complications; I48.91 Unspecified atrial fibrillation; K21.9 Gastro-esophageal reflux disease without esophagitis; J45.909 Unspecified asthma, uncomplicated; W01.0XXA Fall on same level from slipping, tripping and stumbling without subsequent striking against object, initial encounter; Y92.149 Unspecified place in prison as the place of occurrence of the external cause; Z79.4 Long term (current) use of insulin; Z23 Encounter for immunization; Z20.822 Contact with and (suspected) exposure to COVID-19
CPT/HCPCS: J1650

== ENCOUNTER 2020-10-19 02:40 | Inpatient (IN) | payer OTHER ==
[~2020-10-19] VITALS: Ht 177.8 cm; Wt 81.0 kg
[~2020-10-19 02:40] MED LIST changes: +ADVAIR DISK1 IN; +DIPHENHYDRAM25 MG PO; +FAMOTIDINE20 M1 PO; +FERROUS SULFAT325 MG PO; +HYDROCHLOROT12.5 MG PO; +LANTUS100 UNIT SC; +LISINOPRIL20 MG PO; +RISPERIDONE2 MG PO
--- NOTE | 2020-10-19 02:45 | NUR ---
ARRIVED VIA EMS WITH SEEMA FROM [facility]. TRIAGED AT BEDSIDE.
[2020-10-19 03:22] LABS: IMMATURE GRANULOCYTES 1.5 % (0.0-5.0); MEAN CELL VOLUME 82.4 fL CALC (80.0-100.0); MEAN CORPUSCULAR HGB 25.5 pG CALC (26.0-32.0); NEUT# 12.31 thou/uL (1.82-7.42); RED BLOOD COUNT 3.92 mill/uL (4.70-6.10)
[2020-10-19 03:25] LABS: HEMATOCRIT 32.3 % (39.0-50.0)
[2020-10-19 03:34] LABS: CHLORIDE 106 mmol/l (95-108); SGOT/AST 24 u/l (17-59); SODIUM 133 mmol/l (137-146)
[2020-10-19 03:39] LABS: ALBUMIN 3.8 g/dL (3.2-5.0); ALKALINE PHOSPHATASE 107 u/l (38-126); ANION GAP 19 (6-22 (CALC)); BILIRUBIN, TOTAL 0.3 mg/dL (0.0-1.4); BUN 76 mg/dL (9-20); BUN/CREATININE RATIO 21 (12-20 (CALC)); CARBON DIOXIDE 14 mmol/l (22-30); CREATININE 3.7 mg/dL (0.7-1.3); GFR 17 ML/MIN (>=60 (CALC)); GFR FOR AFR.AMER. 21 ML/MIN (>=60 (CALC)); POTASSIUM 6.1 mmol/l (3.5-5.1); TOTAL PROTEIN 7.9 g/dL (6.3-8.2)
[2020-10-19 03:46] LABS: MYOGLOBIN 52 ng/mL (0 - 121)
[2020-10-19] MEDS ORDERED: GUAIFENESI PO (03:53)
[2020-10-19] MEDS ORDERED: TRAMADOL HCL50 MG PO (03:54)
[2020-10-19] MEDS ORDERED: PROVENTIL0.083 % IN (03:55)
[2020-10-19] MEDS ORDERED: IPRATROPIU0.5 MG/3 M IN (03:56)
[2020-10-19 05:52] LABS: POTASSIUM 6.5 mmol/l (3.5-5.1)
--- NOTE | 2020-10-19 06:30 | NUR ---
PT CONTINUES TO HAVE THIS LOOSE/CROUPY LIKE COUGH. VSS.
--- NOTE | 2020-10-19 06:41 | NUR ---
PT WAS GOING TO BE ADMITTED BUT DECIDED TO SIGN AMA. NURSE OSKAR FROM [facility] CALLED AND STATES THAT PT IS UNDER A BA-52 AND HAS BEEN DEEMED INCOMPETENT AND THAT HE HAS AN ASSISGNED GUARDIAN TO MAKE DECISIONS FOR HIM. NONE OF THIS INFORMATION WAS SENT WITH THE PT. SHE HAS NOW FAXED THE 2 DOCUMENTS AND NOW PT WILL BE ADMITTED.
--- NOTE | 2020-10-19 07:00 | NUR ---
SPECIAL EDUCATION ASSOCIATE UNABLE TO GIVE REPORT, BRIEF REPORT RECEIVED FROM JOSE BUENROSTRO.
--- NOTE | 2020-10-19 07:15 | NUR ---
SUPERVISOR GRIPS ATTEMPTED TO CALL REPORT TO MS BUT UNABLE TO. BRIEF REPORT FROM JOSE BUENROSTRO.
--- NOTE | 2020-10-19 07:30 | NUR ---
PATIENT RESTING IN STRETCHER IN NAD, BARKING SOUNDING COUGH NOTED. GUARDS REMAIN AT BEDSIDE.
[2020-10-19 07:32] LABS: URINE BILIRUBIN - DIPSTICK NEGATIVE (NEGATIVE); URINE BLOOD DIPSTICK NEGATIVE (NEGATIVE); URINE COLOR YELLOW; URINE GLUCOSE - DIPSTICK NEGATIVE (NEGATIVE); URINE KETONE NEGATIVE (NEGATIVE); URINE LEUK ESTERASE NEGATIVE (NEGATIVE); URINE PROTEIN - DIPSTICK 100 mg/dL (NEG-TRACE); URINE UROBILINOGEN - DIPSTICK 0.2 E.U./dL (0.2)
[2020-10-19 07:38] LABS: URINE NITRITE - DIPSTICK NEGATIVE (Negative); URINE RBC 0-2 RBC/hpf (0-5); URINE WBC 0-2 WBC/hpf (0-5)
--- NOTE | 2020-10-19 08:16 | NUR ---
MS NURSE WILL CALL BACK FOR REPORT.
--- NOTE | 2020-10-19 08:54 | NUR ---
PT REPORT TO JOSE COSME.
--- NOTE | 2020-10-19 09:10 | NUR ---
Admission Note Report Given to: JOSE COSME Transported by: Wheelchair X Stretcher Transported with: X Nurse Transporter X Patent IV O2 X Social Sciences Professor Location: ICU X [facility] PT TO ROOM 289 IN STABLE CONDITION.
--- NOTE | 2020-10-19 09:10 | NUR ---
BA UPDATED THAT PT IS BEDBOUND AND REPORTS A HEALING BEDSORE ON COCCYX.
--- NOTE | 2020-10-19 09:15 | NUR ---
PATIENT ARRIVED TO FLOOR WITH TWO GUARDS AT SIDE VIA STRETCHER. PATIENT ALERT AND ORIENTED X [address] ON BED AND COCKTAIL WAITRESS DONE. PATIENT FOUND TO HAVE 4CM/2CM 1CM COCCXY DECUBITIS THAT PATIENT STATED IS HEALING (PHOTOS TAKEN) DR. SANCHEZ NOTIFIED OF DECUBITIS. PATIENT HAS COARSE LUNG SOUND AND COARSE COUGH UPON ADMISSION. COCKTAIL WAITRESS DONE SEE INTERVENTIONS. NO SWELLING NOTED ON ANY EXTREMITIES. TELE MONTIOR ON AND BEING MONITORED BY ED. SIDERAILS ARE UP CALL LIGHT NEAR AND PATIENT EDUCATED ON ROOM SAFETY AND CALL CALLING FOR HELP PRIOR TO GETTING UP. PATIENT RIGHT LEG IS SCHACKLED TO BED FRAME WITHOUT ANY OBSTRUCTIVE BLOOD FLOW. PATIENT CONTINUE TO BE MONITORED AT THIS TIME.
[2020-10-19 09:30] VITALS: BP 124/75
[2020-10-19 10:45] VITALS: BP 118/68
[2020-10-19 11:10] LABS: CREATININE 3.5 mg/dL (0.7-1.3)
--- NOTE | 2020-10-19 12:02 | NUR ---
PATIENT LAYING IN BED AT THIS TIME WITH TWO GUARDS AT BEDSIDE. PATIENT HAS RIGHT LOWER LEG SHACKLED TO BED AT THIS TIME AND NO BLOOD FLOW IMPEADMENT NOTED. SIDERAILS ARE UP X TWO CALL LIGHT WITHIN REACH. AQUACELL DRESSING REMAINS INPLACE ON COCCYX AREA. PATIENT STILL HAS DRY COUGH AT THIS TIME.
[2020-10-19 15:21] VITALS: BP 128/74
--- NOTE | 2020-10-19 16:00 | NUR ---
PATIENT LAYING IN BED AT THIS TIME. SIDERAILS UP X 2 GUARDS AT BEDSIDE LUNG SOUND REMAIN COARSE. TELE ON AND BEING MONITORED BY ED DENIES ANY NEEDS OR PAIN. NO COUGH NOTED AT THIS TIME. COCCYX DRESSING DRY AND INTACT.
--- NOTE | 2020-10-19 18:24 | NUR ---
PATIENT MEDICATED WITH 50MG OF TRAMADOL AT THIS TIME FOR ABDOMINAL MUSCLE PAIN AT THIS TIME. PATIENT STATES ITS A 5 OUT OF PAIN SCALE OF 0-10. WILL CONTINUE TO MONITOR.
[2020-10-19 19:40] VITALS: BP 119/73
--- NOTE | 2020-10-19 19:44 | NUR ---
PHYSICAL ASSESMENT COMPLETE. PT CURRENTLY DENIES PAIN OR DISCOMFORT. SCHEDULED MEDICATIONS AND PRN MEDICATION ADMINISTERED, SEE E-MAR. PT DENIES ANY NEEDS AT THIS TIME. PLAN OF CARE REVIEWED, PT DENIES QUESTIONS, VERBALIZES UNDERSTANDING. ITEMS WITHIN REACH, BED LOCKED IN LOW POSITION W/ BEDRAILS UP X2. CALL COTTON WITHIN REACH, AGREES TO CALL PRN.
--- NOTE | 2020-10-20 | NUR ---
PT LAYING IN BED WITH EYES CLOSED, APPEARS TO BE SLEEPING, APPEARS COMFORTABLE AND IN NO DISTRESS. RESPIRATIONS REGULAR AND UNLABORED. ITEMS REMAIN WITHIN REACH, CALL COTTON REMAINS WITHIN REACH. BED REMAINS LOCKED AND IN LOW POSITION WITH BEDRAILS UP X2. WILL CONTINUE TO MONITOR.
[2020-10-20 04:00] VITALS: BP 119/73
--- NOTE | 2020-10-20 04:00 | NUR ---
PT RESTING IN BED, PERSISTENT COUGH HEARD FROM HIS ROOM, RESP EVEN AND UNLABORED. PT VOICES NO NEEDS OR COMPLAINTS AT THIS TIME. CALL LIGHT IN REACH, CONTINUE TO MONITOR.
[2020-10-20 04:41] LABS: CREATININE 3.1 mg/dL (0.7-1.3)
[2020-10-20 04:52] LABS: POTASSIUM 5.7 mmol/l (3.5-5.1)
[2020-10-20 07:32] VITALS: BP 141/84
--- NOTE | 2020-10-20 08:07 | NUR ---
SHIFT CHANGE REPORT, PT AWAKE ALERT AND ORIENTED RESTING IN SUPINE POSITION IN BED, DENIES PAIN AT THIS TIME, IVF INFUSING, TELE MONITOR IN PLACE, CALL COTTON IN REACH, GUARDS X 2 IN ROOM AND PT SHACKLED TO BED, WILL CONTINUE TO MONITOR.
[2020-10-20 10:45] VITALS: BP 141/85
--- NOTE | 2020-10-20 12:00 | NUR ---
PT SITTING UP IN BED HAVING MEAL, SHACKLED TO BED, GUARDS IN ROOM, ALL NEEDS ADDRESS.
[2020-10-20 14:50] VITALS: BP 137/79
--- NOTE | 2020-10-20 16:54 | NUR ---
RESTING IN BED, REQUESTED COUGH MEDS BUT IT WAS TOO EARLY, BREATHING TREATMENT GIVEN.
[2020-10-20 20:00] VITALS: BP 104/59
--- NOTE | 2020-10-20 22:47 | NUR ---
PHYSICAL ASSESMENT COMPLETE. PT C/O OF PAIN IN LOWER BACK. SCHEDULED MEDICATIONS AND PRN MEDICATION ADMINISTERED, SEE E-MAR. PT DENIES ANY NEEDS AT THIS TIME. PLAN OF CARE REVIEWED, PT DENIES QUESTIONS, VERBALIZES UNDERSTANDING. 2 GUARDS ARE PRESENT BEDSIDE. PT SHACKLED RIGHT ANKLE WITH GOOD CIRCULATION. ITEMS WITHIN REACH, BED LOCKED IN LOW POSITION W/ BEDRAILS UP X2. CALL COTTON WITHIN REACH, AGREES TO CALL PRN.
[2020-10-21] VITALS (7 sets, daily range): BP systolic 137–174; BP diastolic 72–94
[2020-10-21 05:07] LABS: HEMATOCRIT 28.7 % (39.0-50.0); HEMOGLOBIN 8.7 g/dl (14.0-18.0); MEAN CORPUSCULAR HGB 24.9 pG CALC (26.0-32.0); MEAN CORPUSCULAR HGB CONC 30.3 g/dL CAL (32.0-36.0); RED BLOOD COUNT 3.5 mill/uL (4.70-6.10); RED CELL DISTRI WIDTH 15.8 % (11.5-15.5)
[2020-10-21 05:15] LABS: CREATININE 2.5 mg/dL (0.7-1.3)
[2020-10-21 05:22] LABS: ALBUMIN 2.9 g/dL (3.2-5.0); POTASSIUM 5.9 mmol/l (3.5-5.1)
--- NOTE | 2020-10-21 05:44 | NUR ---
PT RESTING IN BED, NO SIGNS OF DISTRESS NOTED, RESP EVEN AND UNLABORED. PT VOICES NO NEEDS OR COMPLAINTS AT THIS TIME. CALL LIGHT IN REACH, CONTINUE TO MONITOR.
--- NOTE | 2020-10-21 06:59 | NUR ---
PT RESTING COMFORTABLY C NAD. VSS. GUARDS IN ROOM AT THIS TIME. LAMINATE FLOOR INSTALLER TO MONITOR.
--- NOTE | 2020-10-21 08:00 | NUR ---
SHIFT CHANGE REPORT, PT AWAKE ALERT AND ORIENTED RESTING IN BED, NO C/O DISCOMFORT, IVF INFUSING, TELE MONITOR IN PLACE, CALL COTTON IN REACH, GUARDS X 2 IN ROOM AND PT SHACKLED TO BED, WILL CONTINUE TO MOTITOR.
--- NOTE | 2020-10-21 12:00 | NUR ---
HAVING MEAL, ALL NEEDS ADDRESSED.
--- NOTE | 2020-10-21 15:44 | NUR ---
PT C SNPC. BBS= COA/DIM/WHZ THROUGHOUT. HAT BRUSHER MACHINE TO MONITOR.
--- NOTE | 2020-10-21 16:00 | NUR ---
HAD MEAL AND VOMITED SHORTLY AFTER EATING, MD NOTIFIED AND GAVE ORDERS, ISSUE ADDRESSED.
--- NOTE | 2020-10-21 19:00 | NUR ---
REPORT RECEIVED FROM Sorin ESCOBAR RN, CARE OF PT ASSUMED AT THIS TIME.
--- NOTE | 2020-10-21 21:00 | NUR ---
PT LAYING IN BED, WATCHING TV. CORRECTIONAL OFFICERS X2 IN ROOM. PHYISCAL ASSESMENT COMPLETED. SCHEDULED MEDICATIONS AXMINISTERED AND REQUESTED PRN MEDICATIONS ADMINISTERED. SEE E-MAR. PLAN OF CARE REVIEWED, PT VERBALIZES UNDERSTANDING. PT DENIES FURTHER NEEDS AT THI TIME. CALL COTTON WITHIN REACH, AGREES TO CALL PRN.
--- NOTE | 2020-10-21 22:50 | NUR ---
X1 SMALL EMESIS ON FLOOR. PT REPORTS RELIEF OF NAUSEA. EMESIS BAGS PROVIDED. INSTRUCTED PT TO USE FOR ANY FURTHER EMESIS, PT VERBALIZES UNDERSTANDING AND AGREEMENT.
[2020-10-22 00:02] VITALS: BP 150/72
--- NOTE | 2020-10-22 00:20 | NUR ---
PT LAYING IN BED WITH EYES CLOSED, SNORING GENTLY, APPEARS TO BE SLEEPING COMFORTABLY. NO APPARENT DISTRESS, RESPIRATIONS REGULAR AND UNLABORED. CALL COTTON REMAINS WITHIN REACH.
[2020-10-22 00:35] VITALS: BP 138/79
--- NOTE | 2020-10-22 00:50 | NUR ---
SPOKE WITH Anders BROWN RN, NURSE AT [facility]. UPDATES ON PT'S STATUS AND PLAN PROVIDED.
[2020-10-22 04:00] VITALS: BP 176/85
--- NOTE | 2020-10-22 04:46 | NUR ---
Florina ROOT TERMITE INSPECTOR AT BEDSIDE COLLECTING BLOOD SPECIMEN.
[2020-10-22 05:00] LABS: HEMATOCRIT 27.3 % (39.0-50.0); HEMOGLOBIN 8.4 g/dl (14.0-18.0); MEAN CELL VOLUME 82.5 fL CALC (80.0-100.0); MEAN CORPUSCULAR HGB 25.4 pG CALC (26.0-32.0); MEAN CORPUSCULAR HGB CONC 30.8 g/dL CAL (32.0-36.0); RED BLOOD COUNT 3.31 mill/uL (4.70-6.10); RED CELL DISTRI WIDTH 15.8 % (11.5-15.5)
[2020-10-22 05:09] LABS: CREATININE 2.1 mg/dL (0.7-1.3); MAGNESIUM 1.4 mg/dL (1.6-2.3)
[2020-10-22 05:10] LABS: POTASSIUM 4.5 mmol/l (3.5-5.1)
[2020-10-22 07:45] VITALS: BP 126/78
--- NOTE | 2020-10-22 07:45 | NUR ---
PT SITTING UP IN BED. CORRECTIONAL OFFICERS X2 ALSO IN ROOM. VITALS AND ASSESMENT DONE. S1 AND S2 NOTED.WHEEZES HEARD. COUGH NOTED. PEDAL PULSES EQUALY AND BILATERALLY STRONG. IV PATENT AND HEALTHY. NO DISTRESS NOTED. CALL LIGHT WITHIN REACH.
--- NOTE | 2020-10-22 09:11 | NUR ---
DR HAWKINS AND Afia FRANCO APRN AT BEDSIDE DISCUSSING POC
[2020-10-22 09:45] VITALS: BP 126/78
[2020-10-22] MEDS ORDERED: SODIUM BICAR650 MG PO (11:02)
--- NOTE | 2020-10-22 14:10 | NUR ---
DR SANTIAGO AT BEDSIDE FOR WOUND CARE CONSULT, WOUND PACKED PER
--- NOTE | 2020-10-22 16:25 | NUR ---
REPORT GIVEN TO [facility]
== END 2020-10-22 15:36 | disposition designated cancer center or children's hospital (05) | DRG 640 ==
LOC: ED 02:40 → ED-I 05:55 → ED 06:49 → MS2 06:50
PROVIDERS: Family Medicine; Nurse Practitioner; ADMIT Internal Medicine; ATTEND Internal Medicine
DX: E87.5 Hyperkalemia (principal); L89.154 Pressure ulcer of sacral region, stage 4; N17.9 Acute kidney failure, unspecified; N18.4 Chronic kidney disease, stage 4 (severe); E11.22 Type 2 diabetes mellitus with diabetic chronic kidney disease; I12.9 Hypertensive chronic kidney disease with stage 1 through stage 4 chronic kidney disease, or unspecified chronic kidney disease; E86.9 Volume depletion, unspecified; E87.2 Acidosis; J45.909 Unspecified asthma, uncomplicated; F31.9 Bipolar disorder, unspecified; F20.9 Schizophrenia, unspecified; F60.2 Antisocial personality disorder; K59.00 Constipation, unspecified; I48.91 Unspecified atrial fibrillation; K21.9 Gastro-esophageal reflux disease without esophagitis; Z79.4 Long term (current) use of insulin; Z88.1 Allergy status to other antibiotic agents; Z20.822 Contact with and (suspected) exposure to COVID-19
CPT/HCPCS: J3475

== ENCOUNTER 2021-11-02 15:10 | Observation (INO) | payer OTHER ==
[~2021-11-02] VITALS: Ht 177.8 cm; Wt 102.0 kg
[2021-11-02] VITALS (14 sets, daily range): BP systolic 127–165; BP diastolic 77–99
[~2021-11-02 15:10] MED LIST changes: +GUAIFENESI PO; +IPRATROPIU0.5 MG/3 M IN; +PROVENTIL0.083 % IN; +SODIUM BICAR650 MG PO; +TRAMADOL HCL50 MG PO
--- NOTE | 2021-11-02 15:24 | NUR ---
PT AMBULATES VIA EMS STRETCHER TO ROOM 12 FOR EVAL OF SOB FROM [facility] WITH TWO GUARDS AT BEDSIDE.
[2021-11-02 15:56] LABS: IMMATURE GRANULOCYTES 1.9 % (0.0-5.0); MEAN CORPUSCULAR HGB 29.4 pG CALC (26.0-32.0); MEAN CORPUSCULAR HGB CONC 33.8 g/dL CAL (32.0-36.0); NEUT# 7.95 thou/uL (1.82-7.42); RED BLOOD COUNT 4.22 mill/uL (4.70-6.10); RED CELL DISTRI WIDTH 13.8 % (11.5-15.5)
[2021-11-02 15:59] LABS: HEMATOCRIT 36.7 % (39.0-50.0); HEMOGLOBIN 12.4 g/dl (14.0-18.0)
[2021-11-02 16:15] LABS: PROTHROMBIN TIME 10.5 SECONDS (9.0-12.5)
[2021-11-02 16:16] LABS: BILIRUBIN, TOTAL 0.3 mg/dL (0.0-1.4)
[2021-11-02 16:19] LABS: ALBUMIN 3.7 g/dL (3.2-5.0); CREATININE 5.6 mg/dL (0.7-1.3); POTASSIUM 5.2 mmol/l (3.5-5.1); TOTAL PROTEIN 7.2 g/dL (6.3-8.2)
--- NOTE | 2021-11-02 16:49 | NUR ---
Reassessment of patient completed. No distress noted. REQUESTED URINE SAMPLE FROM PATIENT AND HE DECLINED.
--- NOTE | 2021-11-02 17:31 | NUR ---
Reassessment of patient completed. No distress noted.
--- NOTE | 2021-11-02 18:48 | NUR ---
TRANSPORTED PATIENT TO ROOM 286 AND GAVE BEDSIDE REPORT TO RAFAT. PATIENT ALERT AND ORIENTED AND IN NAD. ASSISTED TO HOSPITAL BED AND CONNECTED OXYGEN
[2021-11-03 00:43] VITALS: BP 175/104
[2021-11-03] MEDS ORDERED: TRAMADOL HCL50 MG PO (00:47)
[2021-11-03] MEDS ORDERED: LIPITOR10 M1 PO (00:51)
[2021-11-03] MEDS ORDERED: NEURONTIN250 MG/5 M PO (00:52)
[2021-11-03] MEDS ORDERED: CARDIZEM CD120 MG PO (00:56)
[2021-11-03] MEDS ORDERED: CYMBALTA20 MG PO (00:57)
[2021-11-03] MEDS ORDERED: TAB-A-VITE W/1 COMBO (00:58)
[2021-11-03 02:30] LABS: HEMOGLOBIN 12.5 g/dl (14.0-18.0); MEAN CELL VOLUME 88.1 fL CALC (80.0-100.0); MEAN CORPUSCULAR HGB 29.8 pG CALC (26.0-32.0); MEAN CORPUSCULAR HGB CONC 33.8 g/dL CAL (32.0-36.0); RED BLOOD COUNT 4.2 mill/uL (4.70-6.10); RED CELL DISTRI WIDTH 14.2 % (11.5-15.5)
[2021-11-03 02:50] LABS: CHOLESTEROL HDL RATIO 2.5 (<4.4 (CALC))
[2021-11-03 02:56] LABS: CREATININE 6.5 mg/dL (0.7-1.3); POTASSIUM 5.6 mmol/l (3.5-5.1)
[2021-11-03 05:03] VITALS: BP 96/63
[2021-11-03 05:31] VITALS: BP 144/87
--- NOTE | 2021-11-03 07:00 | NUR ---
RECEIVE REPORT FROM DIANELYS GARCIA.
[2021-11-03 07:02] VITALS: BP 132/77
--- NOTE | 2021-11-03 08:00 | NUR ---
PATIENT ALERT AND ORIENTED X3. VITAL SIGNS STABLE AT THIS TIME. PATIENT RESTING IN BED PLEASANT. PT IS EDUCATED ABOUD MEDICATIONS AND NURSING PLAN FOR TODAY. PT REFER UNDERSTNAD. FALL AND SAFETY PRECAUTIONS IN PLACE. CALL LIGHT IS WITHIN REACH.
--- NOTE | 2021-11-03 10:25 | NUR ---
PT IN DIALYSIS TREATMENT AT THIS TIME.
--- NOTE | 2021-11-03 11:33 | NUR ---
PATIENT ALERT AND ORIENTED X 4, PUPLES PERRLA AT 3 CM, DENIES C/O OF PAIN OR DISCOMFORT AT PRESENT, DOES HAVE SLIGHT DIZZINESS POSSIBLE DUE TO B/P MEDS. STARTED ON DIALYSIS TREATMENT AT 10:48. CATHATER TO RIGHT CHESTDRSG CHANGED NO EVIDENCE OF INFECTION NOTED, CATHATER LINES INTACT, ASPIRATING AND PUSHING WITHOUT INCIDENT, DIALYSIS LINES INTACT AND VISABLE DURING TREATMENT. HEART TONES REGULAR, NO EDEMA NOTED. B/P WENT DOWN TO 97/64 AND MAINTAINING, PATIENT WAS DIALYIZED YESTERDAY AT [facility], DECREASED GOAL TO 1500 DUE TO SLIGHT LOW PRESSURE NO HYPOTENSION NOTED. PATIENT WAS GIVEN B/P MEDS THIS AM VIA STAFF NURSE, THUS THE LOW PRESSURE.BS X 4 LAST BM YESTERDAY NORMAL PER PATIENT . ALBUMIN 25 GM IVP X 1 ORDERED PER MD FOR LOW PRESSURES. 1200 ALBUMIN GIVEN B/P 77/46 STOPPED FLUID REMOVAL, PATIENT VERBALIZED FEELING OK, WILL CONTINUE TO MONITOR. NO ADVERSE EFFECTS R/T DILAYSIS TREATMENT, PRESSURES LOW DUE TO B/P MEDS GIVEN PRIOR TO DIALYSIS TREATMENT. STARTING WEIGHT 102 KG. HEPARING GIVEN PER MD ORDERS, NO CLOTTING NOTED THUS FAR. PATIENT.PULSES MODERATE LUNGS DIMINISHED O2 N/C AT 2 L. NO RESPIRATORY DISTRESS NOTED.
--- NOTE | 2021-11-03 12:00 | NUR ---
PT IN DIALYSIS TREATMENT.
--- NOTE | 2021-11-03 13:08 | NUR ---
PATIENT REMAINS OFF FLUID PULL ON DIALYSIS. B/P 92/54 MD TO VISIT NO NEW ORDERS NOTED.DR LISA VISITED NO NEW ORDERS NOTED
--- NOTE | 2021-11-03 14:13 | NUR ---
PATIENT RESTING NO FLUID REMOVED THIS TREATMENT DUE TO LOW B/P, ALBUMIN 25% GIVEN VIA MD ORDERS EALIER IN TREATMENT. POATIENT TOLERATING TREATMENT WITHOUT INCIDENT. 160 MLS FLUID REMOVED VIA MACHINE
--- NOTE | 2021-11-03 14:42 | NUR ---
TREATMENT COMPLETE BLOOD RETURNED PATIENT TOLERATED WITHOUT INCIDENT , LESS THAN 1 LITER REMOVED DUE TO HYPOTENSION. ENDING B/P 131/58 SITTING T 98.0 R 18 P 42 STANDING 91/57 103.2 END WEIGHT.
--- NOTE | 2021-11-03 15:39 | NUR ---
PATIENT IS DISCHARGED STABLE. PATIENT IS EDUCATED ABOUD MEDICATIONS AND DOCTOR FOLLOW UP. PT REFER UNDERSTAND.
[2021-11-03 16:00] VITALS: BP 142/84
== END 2021-11-03 12:30 | disposition designated cancer center or children's hospital (05) | DRG 313 ==
LOC: ED 15:10 → ED-I 16:42 → ED 16:54 → MS2 16:55
PROVIDERS: Nurse Practitioner; ADMIT Internal Medicine; ATTEND Internal Medicine
PROC: 5A1D70Z Performance of Urinary Filtration, Intermittent, Less than 6 Hours Per Day (ICD-10-PCS; principal; 2021-11-03)
DX: R07.9 Chest pain, unspecified (principal); N18.6 End stage renal disease; I12.0 Hypertensive chronic kidney disease with stage 5 chronic kidney disease or end stage renal disease; E87.1 Hypo-osmolality and hyponatremia; Z99.2 Dependence on renal dialysis; E11.22 Type 2 diabetes mellitus with diabetic chronic kidney disease; E87.5 Hyperkalemia; D63.1 Anemia in chronic kidney disease; E11.65 Type 2 diabetes mellitus with hyperglycemia; I48.91 Unspecified atrial fibrillation; K21.9 Gastro-esophageal reflux disease without esophagitis; F31.9 Bipolar disorder, unspecified; F20.9 Schizophrenia, unspecified; Z79.4 Long term (current) use of insulin; Z86.16 Personal history of COVID-19; Z20.822 Contact with and (suspected) exposure to COVID-19
CPT/HCPCS: G0378; J1644; P9047

== ENCOUNTER 2021-12-20 03:28 | Inpatient (IN) | payer OTHER ==
[~2021-12-20] VITALS: Ht 177.8 cm; Wt 99.0 kg
[2021-12-20] VITALS (7 sets, daily range): BP systolic 156–201; BP diastolic 62–120
[~2021-12-20 03:28] MED LIST changes: +CARDIZEM CD120 MG PO; +CYMBALTA20 MG PO; +LIPITOR10 M1 PO; +TAB-A-VITE W/1 COMBO
--- NOTE | 2021-12-20 03:28 | NUR ---
ADMIT PER EMS A/OX3 M WITH REPORTED CP UPPER BACK PAUIN AND R ANKLE PAIN.PT IS W/P/D SKIN NO SWEATS NO SOB,NO NAUSEA.PT HAS AN ORTHO BOOTON R ANKLE FROM RECENT FX R ANKLE.
[2021-12-20] MEDS ORDERED: HUMULIN R500 UNIT/M (03:47)
[2021-12-20] MEDS ORDERED: LANTUS100 UNIT SC (03:47)
[2021-12-20] MEDS ORDERED: QUETIAPINE FUM200 MG PO (03:48)
[2021-12-20] MEDS ORDERED: VITAMIN D350000 UNIT (03:49)
[2021-12-20] MEDS ORDERED: TAB-A-VITE W/1 COMBO (03:50)
[2021-12-20] MEDS ORDERED: ATORVASTATIN CA10 MG PO (03:50)
[2021-12-20 03:55] LABS: HEMATOCRIT 24.4 % (39.0-50.0); HEMOGLOBIN 7.9 g/dl (14.0-18.0); IMMATURE GRANULOCYTES 0.5 % (0.0-5.0); MEAN CELL VOLUME 92.1 fL CALC (80.0-100.0); MEAN CORPUSCULAR HGB 29.8 pG CALC (26.0-32.0); MEAN CORPUSCULAR HGB CONC 32.4 g/dL CAL (32.0-36.0); NEUT# 5.4 thou/uL (1.82-7.42); RED BLOOD COUNT 2.65 mill/uL (4.70-6.10); RED CELL DISTRI WIDTH 14.9 % (11.5-15.5)
--- NOTE | 2021-12-20 04:00 | NUR ---
PT UNABLE TO VOID URINE STATES HE PEED RECENTLY.BUT PT SAYS WE MAY CATH HIM FOR SPEC.PATRICK GASTELUM APPROVES AND PT ST CATH URINARY MEATUS FOR SPEC AND BLADDER DRAINED OF 800CC YELLOW CLEAR URINE.
[2021-12-20] MEDS ORDERED: CYMBALTA20 MG PO (04:01)
[2021-12-20] MEDS ORDERED: DILTIAZEM HCL60 MG PO (04:02)
[2021-12-20 04:03] LABS: ALBUMIN 3.4 g/dL (3.2-5.0); BILIRUBIN, TOTAL 0.5 mg/dL (0.0-1.4); TOTAL PROTEIN 6.9 g/dL (6.3-8.2)
[2021-12-20] MEDS ORDERED: METOPROL TAR25 MG PO (04:04)
[2021-12-20] MEDS ORDERED: LISINOPRIL20 M1 PO (04:06)
[2021-12-20] MEDS ORDERED: NEURONTIN250 MG/5 M PO (04:07)
[2021-12-20 04:09] LABS: POTASSIUM 5.8 mmol/l (3.5-5.1)
[2021-12-20] MEDS ORDERED: RENAGEL800 MG PO (04:09)
[2021-12-20] MEDS ORDERED: OMEPRAZOLE20 MG PO (04:09)
[2021-12-20] MEDS ORDERED: DOXY-CAPS100 MG PO (04:10)
[2021-12-20] MEDS ORDERED: TRAMADOL HCL50 MG PO (04:11)
[2021-12-20] MEDS ORDERED: PAIN RELIEF650 MG PO (04:12)
[2021-12-20] MEDS ORDERED: ALBUTEROL SUL0.083 % IN (04:13)
[2021-12-20 04:28] LABS: URINE BILIRUBIN - DIPSTICK NEGATIVE (NEGATIVE); URINE BLOOD DIPSTICK NEGATIVE (NEGATIVE); URINE COLOR YELLOW; URINE GLUCOSE - DIPSTICK 500 mg/dL (NEGATIVE); URINE KETONE NEGATIVE (NEGATIVE); URINE LEUK ESTERASE NEGATIVE (NEGATIVE); URINE PH 8.5 (4.5-8.0); URINE PROTEIN - DIPSTICK 100 mg/dL (NEG-TRACE); URINE UROBILINOGEN - DIPSTICK 0.2 E.U./dL (0.2)
--- NOTE | 2021-12-20 04:28 | NUR ---
PT IS MEDICATED FOR PAIN AND HTN. W/P/D SKIN SR NO ST T CHANGES NO ECTOPY.
[2021-12-20 04:32] LABS: URINE NITRITE - DIPSTICK NEGATIVE (Negative)
[2021-12-20 04:35] LABS: URINE BACTERIA FEW hpf; URINE EPITHELIAL CELLS FEW EPI/hpf (0-FEW); URINE RBC 0-2 RBC/hpf (0-5)
--- NOTE | 2021-12-20 04:56 | NUR ---
W/P/D SKIN SR NO ECTOPY NO ST T CHANGES NO SWEATS NO NAUSEA NO DYSPNEA.PT IS FALLING ASLEEP.
--- NOTE | 2021-12-20 05:29 | NUR ---
ON VO DR GASTELUM PT REC'ED HYDRALAZINE 10MG IVP
--- NOTE | 2021-12-20 05:35 | NUR ---
PT REPORT TO MS NURSE JENNIFER
--- NOTE | 2021-12-20 05:40 | NUR ---
PT TRANSPORTED TO [place] RM 264 ON TELE O2 IN IMPROVED STABLE CONDITION
--- NOTE | 2021-12-20 08:00 | NUR ---
PT IN BED STATES PAIN 10/10 IN SHOULDERS AND BACK, PT HAS 2 GUARDS AT BEDSIDE, HANCUFF TO BED ON LEFT ANKLE, RIGHT FOOT HAS BOOT FOR A PREVIOUS FX, PT HAS A SACAL WOUND THAT IS HEALED, DIALYSIS PT MWF, DIALYSIS CATH R CHEST, PT IN BED LOW POSITION, CALL LIGHT IN REACH
--- NOTE | 2021-12-20 14:09 | NUR ---
CALLED AND SPOKE TO DR MOORE ABOUT CONSULT
[2021-12-21] VITALS (7 sets, daily range): BP systolic 113–171; BP diastolic 66–111
[2021-12-21 05:27] LABS: HEMATOCRIT 25.6 % (39.0-50.0); HEMOGLOBIN 8.4 g/dl (14.0-18.0); IMMATURE GRANULOCYTES 0.9 % (0.0-5.0); MEAN CELL VOLUME 91.4 fL CALC (80.0-100.0); MEAN CORPUSCULAR HGB CONC 32.8 g/dL CAL (32.0-36.0); NEUT# 6.82 thou/uL (1.82-7.42); RED BLOOD COUNT 2.8 mill/uL (4.70-6.10); RED CELL DISTRI WIDTH 14.9 % (11.5-15.5)
[2021-12-21 05:42] LABS: ALBUMIN 3.3 g/dL (3.2-5.0)
[2021-12-21 05:56] LABS: CREATININE 8.2 mg/dL (0.7-1.3); POTASSIUM 6.5 mmol/l (3.5-5.1)
--- NOTE | 2021-12-21 06:30 | NUR ---
REPORT RECIEVED FROM MEDICAL VAN DRIVERHIM DIRECTOR. BED SIDE REPORT RECIEVED. 2 GAURDS AT BEDSIDE. PT STATES NO QUESTIONS. FALL/SAFTEY PRECAUTINS IN PLACE. CALL LIGHT QWITHIN REACH
--- NOTE | 2021-12-21 08:25 | NUR ---
PT LAYING IN BED WITH CUF RESTRAINT ON LEFT LEG. PT IS a&ox3. with O2 IN PLACE VIA NC. BREATHING IS LABORED. ATTEMPT TO WEEN PT STATING 88-89%. O2 REAPPLIED @2L STATING ABOVE 93%. BLOOD GLUCOSE CHECK THIS MORNIN NO COVERAGE NEEDED. LUNG SOUNDS ARE COARSE UPPER/LOWER LOBES, STATES BACK PAIN. COMFORT MEASURES PROVIDED. ANKLE BOOT TO THE RIGHT LEG. PEDAL PULSE STRONG BILATERALLY. PT ABLE TO MOVE LOWER EXTREMETIES. IV 20G RAC FLUSHED. 2 GAURDS AT BEDSIDE. FALL/SAFTEY PRECAUTIONS IN PLACE. CALL LIGHT WITHIN REACH.
--- NOTE | 2021-12-21 11:30 | NUR ---
POST DIALYSIS NOTE: DIALYSIS TREATMENT COMPLETED AT 1126, BLOOD RETURNED, 2700 ML OF FLUID REMOVED. TREATMENT DURATION 3 HOURS. PT TOLERATED TREATMENT WELL AND WITHOUT INCIDENT. POST DIALYSIS WEIGHT: 80.2 kg, per standing scale VS: 248/122mmHg 81bpm 91 SPO2 on RA 18RR/MIN 98.1F ASSESMENT: B/L FOOT AND ANKLE EDEMA VISIBLY REDUCED. LUNGS REMAIN CLEAR. RESPIRATIONS REMAIN REGULAR AND UNLABORED. REMAINS NSR ON TELEMETRY. ACCESS:RUE AV SHUNT DE-ACCESSED, FIRM PRESSURE HELD FOR 10 MINUTES BEFORE SECURING DRY DRESSING. NO SIGNS OF BLEEDING. + THRILL + BRUIT. PT RETURNED TO ROOM 265 VIA WHEELCHAIR. VERBAL REPORT ENDORSED TO Terri LUCERO RN. WRITTEN HAND OFF PROVIDED. CARE OF PT UNASSUMED AT THIS TIME.
--- NOTE | 2021-12-21 12:20 | NUR ---
PT TARNSPORTED TO DIALYSIS WITH DIYLASIS RN.
--- NOTE | 2021-12-21 12:48 | NUR ---
PRE-DIALYSIS NOTE: PT BROUGHT TO DIALYSIS ROOM VIA WHEELCHAIR. VERBAL REPORT AND WRITTEN HAND OFF RECEIVED FROM PRIMARY NURSE. CARE OF PT ASSUMED AT THIS TIME. CONSENT HAS BEEN OBTAINED AND SIGNED BY PHYSICIAN. TREATMENT ORDERS OBTAINED FROM DR. PERKINS. EDUCATION PROVIDED VERBALLY, ALLOWING TIME FOR PT TO ASK ANY QUESTIONS. PT VERBALIZES UNDERSTANDING AND DENIES FURTHER QUESTIONS. LABS REVIEWED. WEIGHT: 103.2 KG, PER STANDING SCALE VS: 154/93mmHg 97bpm SPO2 95% ON 02 2L/MIN VIA NC RR 20/MIN 98.7F HD ACCESS:RIGHT SUBCLAVIAN CVC, DRESSING SOILED AND PEELING OFF. NEW CVC DRESSING APPLIED UNDER ASEPTIC TECHNIQUE. CVC FLUSHES EASILY AND HAS GOOD BLOOD RETURN. HEMODIALYSIS TREATMENT INITIATED AT 12:48 WITHOUT DIFFICULTY OR COMPLICATION. PT TOLERATED PROCEDURE WELL. WILL REMAIN WITH PT FOR MONITORING. MACHINE #[id number] DIALYZER: [id number] [id number] CARDTIGE LOT # [id number] PH 7.6 COND. EXP. 13.9 COND. ACT. 14 WATER TEMP 83.3F ASSESMENT:A/OX3 AND DROWSY. LUNGS RHONCHI WITH DIMINISHED BASES. NSR ON TELEMETRY WITH REGULAR RATE AND RYTHM. S1/S2 APPRECIATED ON AUSCULTATION. TRACE EDEMA NOTED TO B/L FEET AND ANKLES.
--- NOTE | 2021-12-21 13:18 | NUR ---
BLOOD FLOW RATE DECREASED TO 250ML/MIN TO MITIGATE HIGH VENOUIS PRESSURES. CHANGE IN RATE SUCCESFUL IN REDUCING VENOUS PRESSURE DESIRED.
--- NOTE | 2021-12-21 14:36 | NUR ---
PT RESTING IN DIALYSIS TREATMENT AT THIS TIME. STATES NO NEEDS AT THIS TIME. BREAHTING EVEN AND UNLABROED. FALL/SAFTEY PRECAUTIONS IN PLACE. CALL LIGHT WITHIN REACH
--- NOTE | 2021-12-21 16:25 | NUR ---
PT BACK FROM DIALYSIS WITH CAMP DINING ROOM ATTENDANT AND SCRAPE GATHERER. MANAGER CHANGE REPORT GIVEN. HR ABOVE 120. MD ALFARO NOTIFIED/AWARE. ORDERS FOR PO LOPRESSOR, SEE EMAR DOCUMENTATION. PT ON 2L VIA NC. ASSOCIATE RELATIONS SPECIALIST COUGH NOTED. TELE MONITOR IN PLACE, COTNINOUS MONITORING PER ED. BREATHING LABORED. 2 GAURDS AT BED SIDE. FALL/SAFTEY PRECAUTIONSIN PLACE. CALL LIGHT WITHIN REACH.
--- NOTE | 2021-12-21 16:30 | NUR ---
POST DIALYSIS NOTE: DIALYSIS TREATMENT COMPLETED AT 16:30, BLOOD RETURNED, 2570 ML OF FLUID REMOVED.TREATMENT DURATION 2 HOURS AND 52 MINUTES. POST DIALYSIS WEIGHT: 100.63 KG, ESTIMATED FROM FLUID REMOVED TOTAL PT IS NOT STABLE TO WEIGH ON STANDING SCALE AT THIS TIME. VS:121/89mmHg 120-130S AFIB ON MONITOR FPI510% ON 02 @ 2L/M VIA NC 22 RR/MIN 98.8F ASSESMENT: PER TELEMETRY PT CONVERTED TO AFIB RVR. PT'S NIBP REMAINS STABLE AND PATIENT SHOWS NO CHANGES IN PHYSICAL ASSESMENT ASIDE FROM RHYTHM CHANGE. PT OFFERS NO NEW COMPLAINT. PRIMARY NURSE MADE AWARE, DR. ALFARO MADE AWARE, AND DR. PERKINS MADE AWARE. AT THIS TIME PLAN IS TO ADMINISTER PTS SCHEDULED NIGHT TIME METOPROLOL EARLY AND CON'T TO MONITOR PER DR. ALFARO. FURTHER ORDERS PENDING AT THHIS TIME. PT TRANSPORTED BACK TO ROOM 264 IN BED, ON FIRE ALARM OPERATOR. PLAN OF CARE COMMUNICATED WITH KENN VILLAGOMEZ. ACCESS: CVC DISCONNECTED LOCKED PER [facility] POLICY UNDER ASEPTIC TECHNIQUE AND TEGO CAPS APPLIED. CVC CONTINUES TO FLUSH EASILY AND PROVIDES GOOD BLOOD RETURN.
--- NOTE | 2021-12-21 16:48 | NUR ---
EKG OBTAINED. NOTIFIED MD ALFARO. NEW ORDERS FOR LOPRESSOR SEE EMAR.
--- NOTE | 2021-12-21 17:32 | NUR ---
PT HR 115-117 MD ALFARO NOTIFIED. HOLD LOPRESSOR PER MD. PT RESTING WITH 2 GAURDS AT BEDSIDE. FALL/SAFTEY PRECAUTIONS IN PLACE. CALL LIGHT WITHIN REACH
--- NOTE | 2021-12-21 18:10 | NUR ---
PT RESTING EATING DINNER. TELE MONITOR BOX SHOWS 114 HR. 2 GAURDS AT BEDSIDE. VOICES PAIN. MEDICATED SEE EMAR. FALL/SAFTEY PRECAUTIONS IN PLACE. CALL LIGHT WITHIN REACH.
--- NOTE | 2021-12-21 20:00 | NUR ---
PATIENT RESTING IN BED AT THIS TIME WITH LEOSX2 AT BEDSIDE. PATIENT AWAKE AND C/O GENERALIZED PAIN HERMILO TO BACK AND NECK-MEDICATED WITH MORPHINE 2MG IVP ORDERED FOR 9/10 PAIN SCALE. SALINE LOCK INTACT TO LEFT FOREARM-HEALTHY WITH GOOD BLOOD RETURN. MEDICATED WITH METOPROLOL 5MG IVP EARLIER ORDERED. HR-106 AT THIS TIME. TELE MONITOR IN PLACE. O2 SAT IS 91%-ATTEMPT TO PLACE O2 VIA NASAL CANNULA IN PLACE BUT PATIENT CONT TO RREMOVE IT SOON IT IS PUT ON. PATIENT NO ALWAYS COOPERATIVE WITH CARE. PATIENT WITH ORTHO BOOT TO RIGHT LE FOR PREVIOUS INJURY. SHACKEL IN PLACE TO LLE AND THE BED. NON-PRODUCTIVE CROOPY COUGH. MEDICATED WITH ROBITUSSIN AC ORDERED FOR COUGH. CALL LIGHT IN REACH. WILL CONT TO MONITOR.
--- NOTE | 2021-12-21 22:50 | NUR ---
PATIENT MEDICATED WITH METOPROLOL 25MG PO ORDERED. 2353-MEDICATED WITH LOVENOX 50MG SQ ORDEREDX1 DOSE. MEDICATED FOR PAIN WITH MORPHINE 2MG IVP ORDERED FOR PAIN. SEEMA'SX2 REMAIN AT THE BEDSIDE. LLE SHACKELED TO THE BED. ORTHO BOOT TO RLE IN PLACE. TELE MONITOR IN PLACE- CALL LIGHT IN REACH. WILL CONT TO MONITOR.
[2021-12-22] VITALS (15 sets, daily range): BP systolic 82–131; BP diastolic 49–106
--- NOTE | 2021-12-22 04:51 | NUR ---
PATIENT RESTING IN BED WITH EYES CLOSED. RESPS ARE NOISEY WITH COARSE BS. PATIENT REPOSITIONED IN BED. TELE MONITOR IN PLACE. SALINE LOCK TO LEFT FOREARM INTACT. DOUBLE LUMEN H/D CATH INTACT TO RIGHT UPPER CHEST. BED ALARM IN PLACE. SEEMA'SX2 AT BEDSIDE. PATIENT LLE IS SHACKELED TO BED. CALL LIGHT IN REACH. WILL CONT TO MONITOR.
[2021-12-22 05:44] LABS: HEMATOCRIT 23.8 % (39.0-50.0); HEMOGLOBIN 7.7 g/dl (14.0-18.0); IMMATURE GRANULOCYTES 0.9 % (0.0-5.0); MEAN CELL VOLUME 93.7 fL CALC (80.0-100.0); MEAN CORPUSCULAR HGB 30.3 pG CALC (26.0-32.0); MEAN CORPUSCULAR HGB CONC 32.4 g/dL CAL (32.0-36.0); NEUT# 8.81 thou/uL (1.82-7.42); RED BLOOD COUNT 2.54 mill/uL (4.70-6.10); RED CELL DISTRI WIDTH 15.1 % (11.5-15.5)
[2021-12-22 06:49] LABS: ALBUMIN 3.5 g/dL (3.2-5.0); BILIRUBIN, TOTAL 0.7 mg/dL (0.0-1.4); TOTAL PROTEIN 6.8 g/dL (6.3-8.2)
[2021-12-22 07:18] LABS: CREATININE 7.2 mg/dL (0.7-1.3)
--- NOTE | 2021-12-22 07:31 | NUR ---
received a phone call from lab critically high creatinine 7.2, nurse Oralia made aware.
--- NOTE | 2021-12-22 10:00 | NUR ---
PATIENT ALERT AND ORIENTED TO PERSON PLACE AND TIME. SITTING UP IN BED EATING BREAKFAST. NOTICEABLE COUGH; WHEN LUNGS AUSCULTATED, VERY COARSE IN ALL REYES. PATIENT STATES THAT HE HAS PAIN 9/10 IN RIGHT LEG AND FOOT. BED LOCKED IN LOWEST POSITION, CALL LIGHT WITHIN REACH.
--- NOTE | 2021-12-22 13:50 | NUR ---
PATIENT ASLEEP. BED LOCKED IN LOWEST POSITION. CALL LIGHT WITHIN REACH.
--- NOTE | 2021-12-22 16:05 | NUR ---
DIALYSIS PRE: PT RECEIVED ON WHEELCHAIR WITH WIRELESS FIELD TECHNICIAN AND CUSTODIANTS. PT WITH RIGHT CVC, DRESSING C/I/D, PT EDUCATED ABOUT PROCEDURE, HD TX CONSENT SIGNED YESTERDAY. PT ON DIALYSIS TX ON , PT WILL TAKE AN EXTRA TX TODAY DUE HIS K+6. RN GAVE HIS BP MEDS IN AM AND PAIN MEDS, BP LOW. ORDERS RECEIVED BY DR. MOORE, ALBUMIN WILL GIVE DURING TX. TX STARTED UNDER ASEPTIC TECHNIQUES. BF 300 ML/MIN DUE [facility], LINES REVERSED. WILL MONITOR HIS BP. BP-94/54 P-80 R-22 TEMP-99.4. PT ASYMPTHOMATIC, ALERT, DENIES ANY PAIN. REPORT RECEIVED BY HIS PRIMARY RN. [id number] CARTRIDGE [id number] PH-7.2 ACT COND-13.7 EXP COND-13.7 WATER TEMP-84.2 F
--- NOTE | 2021-12-22 17:57 | NUR ---
DIALYSIS POST: BLOOD RETURNED UNDER ASEPTICF TECHNIQUES, 1.1 LTS REMOVED, ALBUMIN USED DURING TX TO SUPPORTED BP. PT STARTED WITH TACHY 120-130'S, PT WITH OXIGEN @ 2 LTS. CVC CAPPED AND CLAMPPED. PT TRANSFERED TO HIS ROOM BY WHEELCHAIR WITH CLEARANCE COORDINATOR. REPORT GIVEN TO HIS PRIMARY RN.
--- NOTE | 2021-12-22 18:27 | NUR ---
NOTIFY DR. LISA HEART RATE 120/130 IN DIALYSIS AND AFTER. ORDER FOR EKG IS DONE. PATIENT ASYMPTOMATIC.
--- NOTE | 2021-12-22 18:38 | NUR ---
PATIENT SUSTAINING SINUS-TACHY 120-130, MD NOTIFIED AND ORDERS WERE RECEIVED.
[2021-12-22 18:46] LABS: ALBUMIN 3.9 g/dL (3.2-5.0)
[2021-12-22 18:50] LABS: CREATININE 3.5 mg/dL (0.7-1.3); POTASSIUM 3.8 mmol/l (3.5-5.1)
--- NOTE | 2021-12-22 19:30 | NUR ---
PATIENT RESTING IN BED WITH O2 VIA NASAL CANNULA IN PLACE. PATIENT IS AROUSABLE AND CONSTANTLY ASKING FOR PAIN MEDS-WHERE PAIN IS LOCATED CHANGES WHEN ASKED WHERE THE PAIN IS. PATIENT IS ALERT AND ORIENTED TO PERSON AND THINKS THAT HE IS AT PSYCH FACILITY. SEEMA'SX2 AT BEDSIDE. BP IS LOW-93/62 WITH HR ELEVATED AT 121. TELE MONITOR IN PLACE. RIGHT UPPER CHEST HD CATH INTACT. SALINE LOCK TO LEFT FOREARM INTACT AND HEALTHY WITH GOOD BLOOD RETURN. PATIENT WITH ORTHO BOOT INTACT TO RIGHT LE-RECENT FX. LLE IS SHACKLED TO THE BED. CONT TO HAVE LOOSE CROOPY COUGH. MARYAM LUNGS ARE COARSE. ABD IS SOFT WITH BS ACTIVE. COLOR IS PALE. SKIN IS COOL AND CLAMMY. CONT WITH NO APPETITE. NO DINNER AGAIN TONIGHT AND NO SNACK AT THIS TIME. BED ALARM IN PLACE FOR PATIENT SAFETY. CALL LIGHT IN REACH. WILL CONT TO MONITOR.
--- NOTE | 2021-12-22 21:00 | NUR ---
RESTING IN BED WITH SEEMA'S AT BEDSIDE. REMAINS SHALCKLED TO THE BED-LLE. CONT TO HAVE CONSTANT C//O PAIN EVEN AFTER RECIEVING TYLENOL AND OTHER HS MEDS. BP114/87, HR-110. MEDICATED WITH LOPRESSOR 2.5MG SLOW IVP ORDERED. WILL CONT TO MONITOR. 2114-BP-94/68, HR-118 2200-BP-11/66, 114-RESTING WITH EYES CLOSED. RESPS ARE EVEN AND UNLABORED. 2230-115/62, HR-108 2300-BP-98/59, HR-96. RESTING IN BED WITH SEEMA'S AT BEDSIDE. CONT LLE SHACKELED TO BED. O2 VIA NASAL CANNULA IN PLACE, TELE MONITOR IN PLACE. BED ALARM IN PLACE FOR PATIENT SAFETY. SALINE LOCK TO LEFT FOREARM INTACT. CALL LIGHT IN REACH. WILL CONT TO MONITOR.
[2021-12-23 00:23] VITALS: BP 97/66
--- NOTE | 2021-12-23 00:40 | NUR ---
RESTING IN BED WITH O2 VIA NASAL CANNULA IN PLACE AT 2LPM. O2 SATS-95-96%. BP-97/66 AND HR IN THE 90'S. HOB IS ELEVATED. TELE MONITOR IN PLACE. SALINE LOCK TO LEFT FOREAM INTACT. SEEMA'SX2 AT BEDSIDE. REMAINS WITH LLE SHACKELED TO THE BED. ORTHO BOOT INTACT TO RLE. BED ALARM IN PLACE. CALL LIGHT IN REACH. WILL CONT TO MONITOR.
--- NOTE | 2021-12-23 04:03 | NUR ---
PATIENT RESTING IN BED AT THIS TIME-EYES ARE CLOSED AND RESPS ARE EVEN. BREATHING IN NOISEY AT TIMES. O2 VIA NASAL CANNULA IN PLACE. SEEMA'SX2 REMAIN AT BEDSIDE. PATIENT REMAINS WITH LLE SHACKELED TO THE BED. TELE MONITOR IN PLACE. LEFT FOREARM IV SITE INTACT. RIGHT UPPER CHEST DOUBLE LUMEN H/D CATH INTACT. BED ALARM IN PLACE FOR PATIENT SAFETY. CALL LIGHT IN REACH. WILL CONT TO MONITOR.
[2021-12-23 04:26] VITALS: BP 102/60
[2021-12-23 05:40] LABS: HEMATOCRIT 24.6 % (39.0-50.0); HEMOGLOBIN 7.7 g/dl (14.0-18.0); IMMATURE GRANULOCYTES 0.6 % (0.0-5.0); MEAN CELL VOLUME 93.2 fL CALC (80.0-100.0); MEAN CORPUSCULAR HGB 29.2 pG CALC (26.0-32.0); MEAN CORPUSCULAR HGB CONC 31.3 g/dL CAL (32.0-36.0); NEUT# 6.88 thou/uL (1.82-7.42); RED BLOOD COUNT 2.64 mill/uL (4.70-6.10)
[2021-12-23 06:05] VITALS: BP 85/48
[2021-12-23 06:13] LABS: CREATININE 5.8 mg/dL (0.7-1.3); MAGNESIUM 1.9 mg/dL (1.6-2.3); POTASSIUM 4.9 mmol/l (3.5-5.1)
--- NOTE | 2021-12-23 06:18 | NUR ---
RECIEVED CALL FROM [facility] IN LAB WITH CRITICAL LAB RESULT. CREAT-5.8. DIALYSIS PATIENT-LAST DIALYSIS WAS YESTERDAY. TREATMENT IN PLACE. WILL CONT TO MONITOR.
--- NOTE | 2021-12-23 06:44 | NUR ---
nurse notified about patients blood pressure.
--- NOTE | 2021-12-23 06:50 | NUR ---
RECEIVED REPORT FROM JOSE TORRES.
[2021-12-23 08:20] VITALS: BP 89/60
--- NOTE | 2021-12-23 08:25 | NUR ---
PT LYING ON BED, PT WAS REPOSITION: A&O X3. EVEN AND UNLABORED RESPIRATIONS: COARSE THROUGHTOUT. O2 @ 2L VIA NASAL CANNULA IN PLACE. TELEMETRY IN PLACE WITH LAST READING SR-96. IV SITE HEALTHY AND PATENT. ACTIVE BOWEL SOUNDS X4 QUADRANTS. RIGHT UPPER CHEST HD CATHETER INTACT. PT ACCOMPANIED BY 2 GUARDS. LLE SACKLEDE TO BED, BRACE TO RT ANKLE IN PLACE. SAFETY PRECAUTIONSD IN PLACE WITH CALL LIGHT IN REACH.
--- NOTE | 2021-12-23 08:35 | NUR ---
RECHECKED BP NOW IS 89/60; LISBET NAYAK NOTIFIED OF SAME. DR LISA PUT ON HOLD APRESBLANCA, CARDIZEM. WILL ADMINISTER LOPRESSOR PER DR;S ORDERS.
[2021-12-23 10:24] VITALS: BP 105/65
--- NOTE | 2021-12-23 11:15 | NUR ---
PT SITTING ON BED, LOW FOWLERS. NO DISTRESS OR PAIN NOTEDE AT THIS TIME. PT ACCOMPANIED BY X2 GUARDS AT BEDSIDE. HANGING SCHEDULED ABX, IV SITE HEALTHY AND PATENT. SAFETY PRECAUTIONS IN PLACE WITH CALL LIGHT IN REACH.
[2021-12-23 12:33] VITALS: BP 125/77
--- NOTE | 2021-12-23 14:15 | NUR ---
PRE-DIALYSIS NOTE: PT BROUGHT TO DIALYSIS ROOM VIA WHEELCHAIR. VERBAL REPORT AND WRITTEN HAND OFF RECEIVED FROM Jimmie YOUNGER LPN. CARE OF PT ASSUMED AT THIS TIME. CONSENT HAS BEEN OBTAINED AND SIGNED BY PHYSICIAN. TREATMENT ORDERS OBTAINED FROM DR. PERKINS. EDUCATION PROVIDED VERBALLY, ALLOWING TIME FOR PT TO ASK ANY QUESTIONS. PT VERBALIZES UNDERSTANDING AND DENIES FURTHER QUESTIONS. LABS REVIEWED. WEIGHT:99 KG VS: 107/74mmHg 93bpm SPO2 93% ON 02 2L/MIN VIA NC RR 20/MIN 98.3F HD ACCESS:RIGHT SUBCLAVIAN CVC, DRESSING SOILED AND PEELING OFF. NEW CVC DRESSING APPLIED UNDER ASEPTIC TECHNIQUE. CVC FLUSHES EASILY AND HAS GOOD BLOOD RETURN. HEMODIALYSIS TREATMENT INITIATED AT 1413 WITHOUT DIFFICULTY OR COMPLICATION. PT TOLERATED PROCEDURE WELL. WILL REMAIN WITH PT FOR MONITORING. MACHINE #[id number] DIALYZER [id number] CARDTIGE LOT #[id number] PH 7.5 COND. EXP. 13.9 COND. ACT. 13.9 WATER TEMP 84.2 ASSESMENT:A/OX3 AND DROWSY. LUNGS RHONCHI WITH DIMINISHED BASES. AFIB 90S ON MONITOR. PT WITH HARSH DRY COUGH. TRACE EDEMA NOTED TO B/L FEET AND ANKLES. VOICES NO COMPLAINTS. CO'S AT BEDSIDE DURING TX.
[2021-12-23] MEDS ORDERED: OMNICEF300 MG PO (15:26)
[2021-12-23] MEDS ORDERED: ZITHROMAX250 MG PO (15:26)
--- NOTE | 2021-12-23 16:20 | NUR ---
PT ON DIALYSIS AT THIS TIME.
--- NOTE | 2021-12-23 18:00 | NUR ---
POST DIALYSIS NOTE: DIALYSIS TREATMENT COMPLETED AT 1756, BLOOD RETURNED, 1000 ML OF FLUID REMOVED.TREATMENT DURATION 3 HOURS. POST DIALYSIS WEIGHT: 98 KG VS:136/80mmHg, 90S AFIB ON MONITOR, EFV809% ON 02 @ 2L/M VIA NC 22 RR/MIN 99.5F CVC HEPARIN LOCKED ORDERED, TEGO CAPS APPLIED. DRESSING REMAINS C/D/I. ASSESMENT UNCHANGED FROM PRE-DIALYSIS. PT IS A/OX3. LUNGS CLEAR AND DIMINISHED. AFIB WITH CONTROLLED RATE ON MONITOR. VOICES NO COMPLAINTS. PT TAKEN BACK TO ROOM 264 VIA WC AND ASSISTED BACK TO BED. CO'S REMAIN WITH PATIENT. VERBAL REPORT AND WRITTEN HAND OFF PROVIDED TO PRIMARY NURSE FABIEN MONTENEGRO.
--- NOTE | 2021-12-23 18:20 | NUR ---
PT EDUCATED ON DC INTRUCTIONS: PT SHOWED UNDERSTANDING. IV REMOVED;# 22 G LEFT AC, CATH INTACT UPON REMOVAL, PT TOLERATED WELL. TELEMETRY REMOVED ER NOTIFIED OF SAME.
--- NOTE | 2021-12-23 18:30 | NUR ---
PT LEFT @ 1630. PT RECEIVED 2 PRINTED PRESCRIPTIONS. Discharge instructions given. Patient verbalizes understanding of same. Discharged in stable condition via Wheelchair to *Other with staff. All belongings sent with pt.
[2021-12-23] MEDS ORDERED: ELIQUIS5 MG PO (21:25)
== END 2021-12-23 18:30 | disposition designated cancer center or children's hospital (05) | DRG 202 ==
LOC: ED 03:28 → ED-I 04:53 → ED 05:01 → MS2 05:11
PROVIDERS: Emergency Medicine; Internal Medicine Nephrology; Nurse Practitioner; ADMIT Internal Medicine; ATTEND Internal Medicine
PROC: 5A1D70Z Performance of Urinary Filtration, Intermittent, Less than 6 Hours Per Day (ICD-10-PCS; principal; 2021-12-21)
PROC: 5A1D70Z Performance of Urinary Filtration, Intermittent, Less than 6 Hours Per Day (ICD-10-PCS; 2021-12-22)
PROC: 5A1D70Z Performance of Urinary Filtration, Intermittent, Less than 6 Hours Per Day (ICD-10-PCS; 2021-12-23)
DX: J20.9 Acute bronchitis, unspecified (principal); N18.6 End stage renal disease; N25.81 Secondary hyperparathyroidism of renal origin; I12.0 Hypertensive chronic kidney disease with stage 5 chronic kidney disease or end stage renal disease; E11.22 Type 2 diabetes mellitus with diabetic chronic kidney disease; E87.5 Hyperkalemia; D63.1 Anemia in chronic kidney disease; I48.91 Unspecified atrial fibrillation; K21.9 Gastro-esophageal reflux disease without esophagitis; F20.9 Schizophrenia, unspecified; J45.909 Unspecified asthma, uncomplicated; S82.891D Other fracture of right lower leg, subsequent encounter for closed fracture with routine healing; X58.XXXD Exposure to other specified factors, subsequent encounter; F31.9 Bipolar disorder, unspecified; Z79.4 Long term (current) use of insulin; Z86.16 Personal history of COVID-19; Z99.2 Dependence on renal dialysis; Z20.822 Contact with and (suspected) exposure to COVID-19
CPT/HCPCS: J1644; J1650; P9047; Q5106 EC

== ENCOUNTER 2021-12-31 11:23 | Inpatient (IN) | payer OTHER ==
[~2021-12-31] VITALS: Ht 177.8 cm; Wt 96.0 kg
[2021-12-31] VITALS (103 sets, daily range): BP systolic 95–208; BP diastolic 67–152
[~2021-12-31 11:23] MED LIST changes: +ALBUTEROL SUL0.083 % IN; +ATORVASTATIN CA10 MG PO; +DILTIAZEM HCL60 MG PO; +DOXY-CAPS100 MG PO; +ELIQUIS5 MG PO; +HUMULIN R500 UNIT/M; +LISINOPRIL20 M1 PO; +OMEPRAZOLE20 MG PO; +OMNICEF300 MG PO; +PAIN RELIEF650 MG PO; +QUETIAPINE FUM200 MG PO; +RENAGEL800 MG PO; +VITAMIN D350000 UNIT; +ZITHROMAX250 MG PO
[2021-12-31 11:59] LABS: HEMATOCRIT 26.6 % (39.0-50.0); HEMOGLOBIN 8.3 g/dl (14.0-18.0); IMMATURE GRANULOCYTES 1.1 % (0.0-5.0); MEAN CELL VOLUME 93.7 fL CALC (80.0-100.0); MEAN CORPUSCULAR HGB 29.2 pG CALC (26.0-32.0); MEAN CORPUSCULAR HGB CONC 31.2 g/dL CAL (32.0-36.0); NEUT# 7.39 thou/uL (1.82-7.42); RED BLOOD COUNT 2.84 mill/uL (4.70-6.10); RED CELL DISTRI WIDTH 15.4 % (11.5-15.5)
[2021-12-31 12:01] LABS: ALBUMIN 3.9 g/dL (3.2-5.0); BILIRUBIN, TOTAL 0.5 mg/dL (0.0-1.4); CREATININE 4.9 mg/dL (0.7-1.3); TOTAL PROTEIN 7.1 g/dL (6.3-8.2)
[2022-01-01] VITALS (16 sets, daily range): BP systolic 118–168; BP diastolic 65–106
[2022-01-01 06:31] LABS: HEMATOCRIT 28.5 % (39.0-50.0); MEAN CELL VOLUME 94.1 fL CALC (80.0-100.0); MEAN CORPUSCULAR HGB 29.7 pG CALC (26.0-32.0); MEAN CORPUSCULAR HGB CONC 31.6 g/dL CAL (32.0-36.0); RED BLOOD COUNT 3.03 mill/uL (4.70-6.10); RED CELL DISTRI WIDTH 15.6 % (11.5-15.5)
[2022-01-01 06:42] LABS: ALBUMIN 4.1 g/dL (3.2-5.0)
[2022-01-01 06:47] LABS: CREATININE 3.7 mg/dL (0.7-1.3)
[2022-01-01 06:48] LABS: POTASSIUM 5.3 mmol/l (3.5-5.1)
[2022-01-01] MEDS ORDERED: OMNICEF300 MG PO (10:52)
== END 2022-01-01 14:30 | disposition designated cancer center or children's hospital (05) | DRG 682 ==
LOC: ED 11:23 → ED-I 12:36 → ICU 13:19 → ED 13:19 → ICU 01-01 06:45
PROVIDERS: Family Medicine; ADMIT Internal Medicine; ATTEND Internal Medicine
PROC: 5A1D70Z Performance of Urinary Filtration, Intermittent, Less than 6 Hours Per Day (ICD-10-PCS; principal; 2021-12-31)
DX: I12.0 Hypertensive chronic kidney disease with stage 5 chronic kidney disease or end stage renal disease (principal); N18.6 End stage renal disease; N25.81 Secondary hyperparathyroidism of renal origin; E11.22 Type 2 diabetes mellitus with diabetic chronic kidney disease; Z99.2 Dependence on renal dialysis; I16.0 Hypertensive urgency; E87.5 Hyperkalemia; D63.1 Anemia in chronic kidney disease; I48.91 Unspecified atrial fibrillation; J44.9 Chronic obstructive pulmonary disease, unspecified; M54.6 Pain in thoracic spine; G89.29 Other chronic pain; F20.9 Schizophrenia, unspecified; K21.9 Gastro-esophageal reflux disease without esophagitis; F31.9 Bipolar disorder, unspecified; Z79.4 Long term (current) use of insulin; Z79.01 Long term (current) use of anticoagulants
CPT/HCPCS: J1644; Q5106 EC

== ENCOUNTER 2022-02-13 10:46 | Emergency (ER) | payer OTHER ==
[~2022-02-13] VITALS: Ht 177.8 cm; Wt 100.0 kg
[2022-02-13 10:55] VITALS: BP 140/99
[2022-02-13 11:00] VITALS: BP 143/96
[2022-02-13 11:19] LABS: IMMATURE GRANULOCYTES 0.5 % (0.0-5.0); MEAN CELL VOLUME 93.7 fL CALC (80.0-100.0); MEAN CORPUSCULAR HGB 27.8 pG CALC (26.0-32.0); MEAN CORPUSCULAR HGB CONC 29.6 g/dL CAL (32.0-36.0); NEUT# 9.04 thou/uL (1.82-7.42); RED BLOOD COUNT 4.14 mill/uL (4.70-6.10); RED CELL DISTRI WIDTH 15.2 % (11.5-15.5)
[2022-02-13 11:20] LABS: HEMATOCRIT 38.8 % (39.0-50.0); HEMOGLOBIN 11.5 g/dl (14.0-18.0)
[2022-02-13 11:26] LABS: INTERNATIONAL NORMALIZED RATIO 1.2 RATIO (0.7-1.3); PROTHROMBIN TIME 11.7 SECONDS (9.0-12.5)
[2022-02-13 11:28] LABS: ALBUMIN 3.8 g/dL (3.2-5.0); BILIRUBIN, TOTAL 0.6 mg/dL (0.0-1.4); TOTAL PROTEIN 7.2 g/dL (6.3-8.2)
[2022-02-13 11:31] VITALS: BP 137/100
[2022-02-13 11:45] LABS: POTASSIUM 5.3 mmol/l (3.5-5.1)
[2022-02-13 11:46] LABS: CREATININE 5.3 mg/dL (0.7-1.3)
[2022-02-13 12:01] VITALS: BP 144/96
[2022-02-13] MEDS ORDERED: LOPRESSOR50 M1 PO (12:15)
== END 2022-02-13 12:28 | disposition designated cancer center or children's hospital (05) | DRG 684 ==
LOC: ED 10:46
PROVIDERS: Family Medicine
DX: N18.6 End stage renal disease (principal); I12.0 Hypertensive chronic kidney disease with stage 5 chronic kidney disease or end stage renal disease; E11.22 Type 2 diabetes mellitus with diabetic chronic kidney disease; Z79.4 Long term (current) use of insulin; I48.91 Unspecified atrial fibrillation

== ENCOUNTER 2022-04-07 07:50 | Inpatient (IN) | payer OTHER ==
[2022-04-07] VITALS (9 sets, daily range): BP systolic 100–133; BP diastolic 66–81
[~2022-04-07] VITALS: Ht 177.8 cm; Wt 101.6 kg
[~2022-04-07 07:50] MED LIST changes: +LOPRESSOR50 M1 PO
--- NOTE | 2022-04-07 08:09 | NUR ---
PT ESCORTED VIA WHEELCHAIR FOR EVAL TO ROOM 15. [facility] GUARDS AT BEDSIDE REPORTING INCREASED WEAKNESS AND SOB X 2 DAYS. GUARDS REPORT TOO WEAK FOR DIALYSIS TODAY. LAST TREATMENT WAS ON TUESDAY
--- NOTE | 2022-04-07 08:36 | NUR ---
PATIENT WITH GUARDS AT BEDSIDE.
[2022-04-07 08:48] LABS: BASO% 0.1 % (0-3); EOS% 0.8 % (0-8); HEMATOCRIT 39.2 % (39.0-50.0); HEMOGLOBIN 12.2 g/dl (14.0-18.0); IMMATURE GRANULOCYTES 0.9 % (0.0-5.0); LYMPH% 6.2 % (15-41); MEAN CELL VOLUME 92.5 fL CALC (80.0-100.0); MEAN CORPUSCULAR HGB 28.8 pG CALC (26.0-32.0); MEAN CORPUSCULAR HGB CONC 31.1 g/dL CAL (32.0-36.0); MONO% 8.8 % (2-13); NEUT# 7.53 thou/uL (1.82-7.42); NEUT% 83.2 % (42-76); RED BLOOD COUNT 4.24 mill/uL (4.70-6.10)
[2022-04-07 08:53] LABS: ALBUMIN 4.4 g/dL (3.2-5.0); TOTAL PROTEIN 7.4 g/dL (6.3-8.2)
[2022-04-07 09:07] LABS: BILIRUBIN, TOTAL 1.2 mg/dL (0.0-1.4); CREATININE 9.1 mg/dL (0.7-1.3)
[2022-04-07 10:10] LABS: POTASSIUM 8.3 mmol/l (3.5-5.1)
[2022-04-07] MEDS ORDERED: DOCUSATE SOD100 MG PO (10:10)
[2022-04-07] MEDS ORDERED: GUAIFENESI100 MG/51 PO (10:13)
[2022-04-07] MEDS ORDERED: FUROSEMIDE20 MG PO (10:14)
[2022-04-07] MEDS ORDERED: AMOXICILLIN500 MG PO (10:17)
--- NOTE | 2022-04-07 11:00 | NUR ---
PT ARRIVES FROM ED VIA STRETCHER, ACCOMPANIED BY Callie MUÑIZ RN AND 2 CORRECTIONAL OFFICERS. PT ATTATCHED TO TELEMETRY ON O2 AT 3L/M VIA NC. REPORT RECEIVED FROM Callie MUÑIZ RN, CARE OF PT ASSUMED AT THIS TIME.
--- NOTE | 2022-04-07 11:06 | NUR ---
PATIENT TAKEN TO DIALYSIS AND REPORT GIVEN TO HIS NURSE (GI-GI) WHO WILL BE TAKING CARE OF HIM. ALL BELONGINGS SENT WITH PATIENT. VITALS STABLE.
--- NOTE | 2022-04-07 11:13 | NUR ---
DIALYSIS TREATMENT INITIATED AT 1113.
--- NOTE | 2022-04-07 12:07 | NUR ---
POINT OF CARE GLUCOSE 92mg/dl.
--- NOTE | 2022-04-07 12:34 | NUR ---
PT LETHARGIC CURRENTLY IN DIALYSIS. PT HEART RHYTHM ON TELE VS OBTAINED. PT IV SITE NOTED. PT RESPIRATIONS ON 2L OF OXYGEN. PT GUARDS AT BEDSIDE . PT TO BE REASSESSED UPON ENTERING DESIGATED ROOM.
--- NOTE | 2022-04-07 14:27 | NUR ---
Sorin PAUL STUD DRIVER IN TO SEE PT, PT REMAINS LETHARGIC AND OTHERWISE HEMODYNAMICALLY STABLE.
--- NOTE | 2022-04-07 15:10 | NUR ---
REPORTED BY Callie MUÑIZ RN FROM ED, PT ARRIVED TO HOSPITAL WITH NO DRESSING TO RIGHT SUBCLAVIAN TUNNELED CATHETER. TEMPORARY DRESSING APPLIED BY ED REMOVED. AT INSERTION SITE NO SIGN OF INFECTION NOTED. AREA CLEANSED, CHG DISKS PLACED AT INSERTION SITE AROUND EACH LUMEN. CENTRAL LINE DRESSING APPLIED. ASEPTIC TECHNIQUE MAINTAINED THROUGHOUT PROCEDURE.
--- NOTE | 2022-04-07 15:20 | NUR ---
PT MORE ALERT AND AWAKE. A/OX2, PERSON AND PLACE. PT INSTRUCTED TO PULL SELF UP ON STRETCHER. PT ABLE TO FOLLOW DIRECTION AND COMPLETE TASK. ADDITIONAL BLANKET PROVIDED PER PT'S REQUEST. PT SAT UP IN HIGH FOWLERS ON STRETCHER. PT WITH HARSH NON-PRODUCTIVE COUGH. Sorin PAUL APRN MADE AWARE PT MORE AWAKE, Sorin PAUL APRN IN TO SEE PT.
--- NOTE | 2022-04-07 15:46 | NUR ---
DIALYSIS TREATMENT COMPLETED AT 1546. SEE HEMODIALYSIS TREATMENT INTERVENTION IN [facility] AND TABLO TREATMENT REPORT FOR DETAILS.
--- NOTE | 2022-04-07 15:57 | NUR ---
PT SENT TO CT IN [facility].
--- NOTE | 2022-04-07 16:00 | NUR ---
PT RETURNED TO ROOM 263 VIA STRETCHER. REPORT ENDORSED TO Natalie LAMB LPN.
[2022-04-07 16:57] LABS: CREATININE 3.5 mg/dL (0.7-1.3)
[2022-04-07 16:58] LABS: POTASSIUM 4.3 mmol/l (3.5-5.1)
--- NOTE | 2022-04-07 17:03 | NUR ---
PT BS REPORT FROM [facility] LOW 23 . PT WAS GIVEN SODA AND ORANGE JUICE WITH SUGAR. PT LAB GLUCOSE REDRAWN BY RN. CLINICAL CORDINATOR CALLED IN FOR ORDERS FROM PROVIDER D50 TO BE GIVEN FOR PT BS. PT AWOKEN TO SPEECH.
--- NOTE | 2022-04-07 17:30 | NUR ---
PT NEW IV BY JULIANNA GARCIA. PT MORE ORIENTED, EATING AND DRINKING.
--- NOTE | 2022-04-07 18:19 | NUR ---
PT NEW BLOOD SUGAR RECHECK 154. PENDING LAB GLUCOSE.
--- NOTE | 2022-04-07 18:25 | NUR ---
PROVIDER AWARE OF CRITICAL GLUCOSE LAB DRAWS.
--- NOTE | 2022-04-07 20:00 | NUR ---
Dr. Wang was notified regarding pt with nonproductive cough, coarse lung sounds. Reviewwed chest xray and most recent labs with md. Heartrate also increasing into the 110-115 bpm and irregular Telemetry shows atrial fibrillation and md gave order to give Metoprolol if heart rate increases above 120. orders noted.
[2022-04-08] VITALS (44 sets, daily range): BP systolic 51–153; BP diastolic 33–127
--- NOTE | 2022-04-08 00:10 | NUR ---
PT HEARTARTE CONTINUES TO BE IRREGULAR AND NOTED INCREASING INTO THE 120'S. gAVE METOPROLOL 5MG ORDERED AND WILL CONTINUE TO OBSERVE. OXYGEN THERAPY IN PLACE AND DENIES sob AT THIS TIME. WILL CONTINUE TO OBSERVE.
--- NOTE | 2022-04-08 02:48 | NUR ---
pt heartrate irregular up to the 150's. new order for STAT EKG. ekg was performed and shows atrial fibrillation with RVR. Md was called and made aware and new order to ogive Cardizem 10mgh IV push and if not corrected then transfer to ICU for Cardizen drip. Orders sent to pharmacy. Pt sitting up in bed with HOB elevated bp 114/81 respiration 20 breaths per minute and tempt 97.8. Pt has a non-productive cough noted and coarse cecile sounds throughout lung stafford. O2 sat 98% on 3LNC. Will continue to observe
--- NOTE | 2022-04-08 03:40 | NUR ---
rec'd to icu 2 per bed from [facility]. report rec'd per zahra paredes. wheezing throughout. o2 cont per nc. air sampling and monitoring shows a fib hr 123. #22 cassie saline lock. guards x2 @ bedside.
--- NOTE | 2022-04-08 03:55 | NUR ---
PT TRANSFERRED TO ICU DUE TO NO IMPROVEMENT IN HR AFTER CARDIZEM PUSH. HR REMAINED IRREGULAR AT 109-130'S. REPORT CALLED IN TO DEVIN AND PT TRANSFERRED VIA BED TO ROOM 2.
--- NOTE | 2022-04-08 04:50 | NUR ---
iv meds per rn.
[2022-04-08 06:00] LABS: BASO% 0.3 % (0-3); EOS% 2.8 % (0-8); HEMATOCRIT 33.6 % (39.0-50.0); HEMOGLOBIN 10.9 g/dl (14.0-18.0); IMMATURE GRANULOCYTES 0.5 % (0.0-5.0); MEAN CELL VOLUME 92.1 fL CALC (80.0-100.0); MEAN CORPUSCULAR HGB 29.9 pG CALC (26.0-32.0); MEAN CORPUSCULAR HGB CONC 32.4 g/dL CAL (32.0-36.0); MONO% 13.7 % (2-13); NEUT% 76.7 % (42-76); RED BLOOD COUNT 3.65 mill/uL (4.70-6.10); RED CELL DISTRI WIDTH 17.9 % (11.5-15.5)
[2022-04-08 06:07] LABS: ALBUMIN 3.7 g/dL (3.2-5.0); TOTAL PROTEIN 6.4 g/dL (6.3-8.2)
[2022-04-08 06:20] LABS: BILIRUBIN, TOTAL 0.7 mg/dL (0.0-1.4); CREATININE 5.9 mg/dL (0.7-1.3); POTASSIUM 5.7 mmol/l (3.5-5.1)
--- NOTE | 2022-04-08 08:00 | NUR ---
RC'D REPORT FROM [facility], PT IS IN BED SLEEPING. PT ON 3 L NC, LUNGS ARE COARSE CRACKLES, PT HAS +1 EDEMA ON LEGS, PT DUE FOR DIALYSIS TODAY, PT A&OX3 BUT VERY DROWSY, SKIN IS INTACT, BED IN LOWEST POSITION
--- NOTE | 2022-04-08 10:23 | NUR ---
pt in bed, no change in pt staus, cRDIZEM DRIP WAS TITRATED DOWN TO 5
--- NOTE | 2022-04-08 10:55 | NUR ---
O2 SAT 95% ON 3L NC.
--- NOTE | 2022-04-08 11:20 | NUR ---
CARDIZEM DRIP STOPPED, PT TOLERATING
--- NOTE | 2022-04-08 11:50 | NUR ---
PT ARRIVES FROM ICU TO ROOM 286 FOR HEMODIALYSIS VIA WHEELCHAIR. PT IS ACCOMPANIED BY Florina LANGLEY RN AND 2 CORRECTIONAL OFFICERS. PT ATTATCHED TO ASSOCIATE MEDIA DIRECTOR AND 02 @ 3L/MIN VIA NC. PT STANDS FROM WHEELCHAIR WITH ASSIST AND SEATED IN RECLINER. REPORT RECEIVED FROM Florina LANGLEY RN AND CARE OF PT ASSUMED AT THIS TIME.
--- NOTE | 2022-04-08 12:00 | NUR ---
HEMODIALYSIS TREATMENT INITIATED.
--- NOTE | 2022-04-08 13:05 | NUR ---
PT SITTING UP EATING EATING LUNCH.
--- NOTE | 2022-04-08 16:44 | NUR ---
DIALYSIS TREATMENT COMPLETED AT 1644. SEE HEMODIALYSIS TREATMENT INTERVENTION IN [facility] AND TABLO TREATMENT REPORT FOR DETAILS.
--- NOTE | 2022-04-08 17:00 | NUR ---
PT BACK TO ICU 2 VIA WHEELCHAIR. ACCOMPANIED BY Florina LANGLEY RN AND 2 CORRECTIONAL OFFICERS. REPORT ENDORSED TO Florina LANGLEY RN, CARE OF PT SURRENDERED AT THIS TIME.
--- NOTE | 2022-04-08 17:00 | NUR ---
PT BACK IN ICU ROOM WITH 2 GUARDS PRESENT, PT HAD 7L TAKEN OFF
--- NOTE | 2022-04-08 17:56 | NUR ---
PT HR SUSTAINING IN 140S, NOTIFIED
--- NOTE | 2022-04-08 18:48 | NUR ---
restarting cardizem drip
--- NOTE | 2022-04-08 19:30 | NUR ---
awakens easily. no c/o voiced. case monitor shows a fib. #22 cassie saline lock. po fluids restricted. does not void. dialysis cath in place. shackles cont to lt ankle. guards x2 @ bedside. fall precautions cont.
--- NOTE | 2022-04-08 21:40 | NUR ---
c/o gen discomfort. ultram 50mg po given.
[2022-04-09] VITALS (45 sets, daily range): BP systolic 90–145; BP diastolic 34–126
--- NOTE | 2022-04-09 00:01 | NUR ---
eyes closed. no distress. monitoring coordinator shows a fib.
--- NOTE | 2022-04-09 02:00 | NUR ---
resting quietly. resps even & unlabored. no apparent distress.
--- NOTE | 2022-04-09 04:00 | NUR ---
eyes closed. no resp diff. guards x2 @ bedside.
--- NOTE | 2022-04-09 05:15 | NUR ---
lab here. blood drawn.
[2022-04-09 06:27] LABS: ALBUMIN 3.4 g/dL (3.2-5.0)
[2022-04-09 06:56] LABS: CREATININE 4.6 mg/dL (0.7-1.3); POTASSIUM 5.2 mmol/l (3.5-5.1)
--- NOTE | 2022-04-09 08:00 | NUR ---
Patient sitting up in bed with two guards at bedside. Patient requesting to leave facility today. Advised patient that provider would be rounding soon to discuss likelihood of departure today/treatment options. Patient verbalized understanding. No other concerns at this time. No s/s of distress.
--- NOTE | 2022-04-09 10:00 | NUR ---
Patient sitting up in bed with two guards at bedside. Patient advised he would be prepped for dialysis shortly. Patient requested medicaiton for cough, medication provided. No other concerns at this time. No s/s of distress.
--- NOTE | 2022-04-09 10:32 | NUR ---
Patient was transported from the unit to [facility] to receive dialysis. No s/s of distress. No concerns at this time.
--- NOTE | 2022-04-09 10:35 | NUR ---
PT ARRIVES TO ROOM 286 FOR HEMODIALYSIS VIA WHEELCHAIR. ACCOMPANIED BY Brandon EDMOND RN AND Fatimah MCPHERSON RN. PT ALSO ACCOMPANIED BY 2 CORRECTIONAL OFFICERS. PT ARRIVES WITH 02 @ 2L/M VIA NC, NUTRITION AIDE, CARDIZEM GTT AT 5MG/H. PT ABLE TO STAND AND PIVOT ONTO RECLINER WITH STANDBY ASSIST. REPORT RECEIVED FROM Brandon EDMOND RN, CARE OF PT ASSUMED AT THIS TIME.
--- NOTE | 2022-04-09 10:45 | NUR ---
HEMODIALYSIS TREATMENT INITIATED AT 1043. SEE HEMODIALYSIS TREATMENT PROCESS INTERVENTION AND TABLO TREATMENT FLOWSHEET FOR TREATMENT SPECIFIC DETAILS.
--- NOTE | 2022-04-09 11:30 | NUR ---
CARDIZEM GTT TURNED OFF AT 1130. PT AFIB WITH A CONTROLLED RATE 70S-80S.
--- NOTE | 2022-04-09 11:30 | NUR ---
received update from dialysis nurse JOSE Gusman; gracy gtt has been weaned; made aware per JOSE Gusman; afib 70s-80s on monitor;
--- NOTE | 2022-04-09 11:54 | NUR ---
DR. LISA IN TO SEE PT.
--- NOTE | 2022-04-09 12:00 | NUR ---
Patient currently on Med Surg unit receiving dialysis.
[2022-04-09] MEDS ORDERED: MEDDOSEPAK PO (12:18)
[2022-04-09] MEDS ORDERED: LOPRESSOR25 MG PO (12:18)
[2022-04-09] MEDS ORDERED: ZPAK PO (12:18)
[2022-04-09] MEDS ORDERED: KEFLEX500 MG PO (12:20)
--- NOTE | 2022-04-09 12:30 | NUR ---
PT SITTING UP EATING LUNCH.
--- NOTE | 2022-04-09 14:15 | NUR ---
HEMODIALYSIS TREATMENT COMPLETED AT 1413. SEE HEMODIALYSIS TREATMENT PROCESS INTERVENTION AND TABLO TREATMENT FLOWSHEET FOR TREATMENT SPECIFIC DETAILS.
--- NOTE | 2022-04-09 14:20 | NUR ---
PT RETURNED TO ICU2 VIA WHEELCHAIR ACCOMPANIED BY Jimmie LOERA RN AND Bradnon EDMOND RN WELL 2 CORRECTIONAL OFFICERS. PT REMAINS ON 02 AT 2L/M VIA NC WITH SPO2 99%. FINANCIAL SYSTEMS ANALYST, AFIB WITH CONTROLLED RATE 70'S-80'S. REPORT ENDORSED TO Brandon EDMOND RN AND Jimmie LOERA RN, CARE OF PT SURRENDERED AT THIS TIME.
--- NOTE | 2022-04-09 14:28 | NUR ---
Patient arrived back on unit from dialysis. Patient is back on the [place] and he is stable. Guards notified that patient has received discharge orders. No s/s of distress at this time.
--- NOTE | 2022-04-09 14:57 | NUR ---
awake in bed; vss; bp 130/77; afib 80s on monitor; o2 sat 95% RA; no apparent distress noted; pt anxious/requesting to "go home"; pt and guards x2 updated on plan for discharge
--- NOTE | 2022-04-09 15:52 | NUR ---
Report was called to [facility] advising them of patient discharge information, new and discontinued prescriptions orders, and that patient received dialysis today and 3L was taken out. Charge nurse verbalized understanding of information. No questions or concerns at the time. Patient left facility via WC accompained by two guards. The guards were given patient information and advised to take discharge paperwork and prescriptions to the medical unit of [facility]. Guards verbalized understanding. No questions, comments or concerns from patient or guards at time of discharge.
== END 2022-04-09 15:52 | disposition designated cancer center or children's hospital (05) | DRG 291 ==
LOC: ED 07:50 → ED-I 08:43 → ED 09:51 → MS2 09:52 → ICU 09:52
PROVIDERS: Family Medicine; Internal Medicine Nephrology; Nurse Practitioner Family; ADMIT Internal Medicine; ATTEND Internal Medicine
PROC: 5A1D70Z Performance of Urinary Filtration, Intermittent, Less than 6 Hours Per Day (ICD-10-PCS; principal; 2022-04-07)
PROC: 5A1D70Z Performance of Urinary Filtration, Intermittent, Less than 6 Hours Per Day (ICD-10-PCS; 2022-04-08)
PROC: 5A1D70Z Performance of Urinary Filtration, Intermittent, Less than 6 Hours Per Day (ICD-10-PCS; 2022-04-09)
DX: I13.2 Hypertensive heart and chronic kidney disease with heart failure and with stage 5 chronic kidney disease, or end stage renal disease (principal); G93.41 Metabolic encephalopathy; N18.6 End stage renal disease; J96.01 Acute respiratory failure with hypoxia; E87.1 Hypo-osmolality and hyponatremia; N25.81 Secondary hyperparathyroidism of renal origin; I50.9 Heart failure, unspecified; E11.22 Type 2 diabetes mellitus with diabetic chronic kidney disease; E11.649 Type 2 diabetes mellitus with hypoglycemia without coma; E87.5 Hyperkalemia; Z99.2 Dependence on renal dialysis; J45.909 Unspecified asthma, uncomplicated; F60.2 Antisocial personality disorder; F25.0 Schizoaffective disorder, bipolar type; I48.91 Unspecified atrial fibrillation; D63.1 Anemia in chronic kidney disease; Z91.15 Patient's noncompliance with renal dialysis; Z91.81 History of falling; Z79.4 Long term (current) use of insulin; Z88.1 Allergy status to other antibiotic agents; Z20.822 Contact with and (suspected) exposure to COVID-19
CPT/HCPCS: J1644; P9047

== ENCOUNTER 2022-05-18 12:18 | Inpatient (IN) | payer OTHER ==
[2022-05-18] VITALS (40 sets, daily range): BP systolic 126–196; BP diastolic 85–135
[~2022-05-18] VITALS: Ht 177.8 cm; Wt 98.9 kg
[~2022-05-18 12:18] MED LIST changes: +AMOXICILLIN500 MG PO; +DOCUSATE SOD100 MG PO; +FUROSEMIDE20 MG PO; +GUAIFENESI100 MG/51 PO; +KEFLEX500 MG PO; +LOPRESSOR25 MG PO; +MEDDOSEPAK PO; +ZPAK PO
[2022-05-18] MEDS ORDERED: GABAPENTIN100 MG PO (13:24)
[2022-05-18] MEDS ORDERED: RISPERDAL PO (13:26)
[2022-05-18] MEDS ORDERED: RENVELA800 MG PO (13:29)
[2022-05-18] MEDS ORDERED: PROVENTIL0.083 % IN (13:31)
[2022-05-18 13:55] LABS: BASO% 0.6 % (0-3); BILIRUBIN, TOTAL 0.5 mg/dL (0.2-1.3); EOS% 1.6 % (0-8); HEMATOCRIT 30.5 % (39.0-50.0); HEMOGLOBIN 9.3 g/dl (14.0-18.0); IMMATURE GRANULOCYTES 1.1 % (0.0-5.0); LYMPH% 7.1 % (15-41); MEAN CELL VOLUME 96.8 fL CALC (80.0-100.0); MEAN CORPUSCULAR HGB 29.5 pG CALC (26.0-32.0); MEAN CORPUSCULAR HGB CONC 30.5 g/dL CAL (32.0-36.0); MONO% 10.2 % (2-13); NEUT# 6.6 thou/uL (1.82-7.42); NEUT% 79.4 % (42-76); RED BLOOD COUNT 3.15 mill/uL (4.70-6.10); TOTAL PROTEIN 7.5 g/dL (6.3-8.2)
[2022-05-18 13:57] LABS: ALBUMIN 4.3 g/dL (3.2-5.0); POTASSIUM 5.3 mmol/l (3.5-5.1)
[2022-05-18 20:49] LABS: URINE BILIRUBIN - DIPSTICK NEGATIVE (NEGATIVE); URINE BLOOD DIPSTICK SMALL (NEGATIVE); URINE COLOR YELLOW; URINE GLUCOSE - DIPSTICK 500 mg/dL (NEGATIVE); URINE KETONE TRACE mg/dL (NEGATIVE); URINE LEUK ESTERASE NEGATIVE (NEGATIVE); URINE PROTEIN - DIPSTICK >=300 mg/dL (NEG-TRACE); URINE SPECIFIC GRAVITY 1.015; URINE UROBILINOGEN - DIPSTICK 0.2 E.U./dL (0.2)
[2022-05-18 21:22] LABS: URINE NITRITE - DIPSTICK NEGATIVE (Negative)
[2022-05-18 21:37] LABS: URINE WBC 0-2 WBC/hpf (0-5)
[2022-05-19] VITALS (22 sets, daily range): BP systolic 106–174; BP diastolic 74–149
[2022-05-19 09:58] LABS: MEAN CELL VOLUME 98.2 fL CALC (80.0-100.0); MEAN CORPUSCULAR HGB 29.7 pG CALC (26.0-32.0); MEAN CORPUSCULAR HGB CONC 30.3 g/dL CAL (32.0-36.0); RED BLOOD COUNT 3.8 mill/uL (4.70-6.10); RED CELL DISTRI WIDTH 16.5 % (11.5-15.5)
[2022-05-19 10:00] LABS: HEMATOCRIT 37.3 % (39.0-50.0); HEMOGLOBIN 11.3 g/dl (14.0-18.0)
[2022-05-19 10:12] LABS: ALBUMIN 4.7 g/dL (3.2-5.0); BILIRUBIN, TOTAL 0.6 mg/dL (0.2-1.3); MAGNESIUM 1.6 mg/dL (1.6-2.3); POTASSIUM 5.1 mmol/l (3.5-5.1); TOTAL PROTEIN 8.2 g/dL (6.3-8.2)
[2022-05-19 10:13] LABS: CREATININE 3.8 mg/dL (0.7-1.3)
== END 2022-05-19 20:50 | disposition short-term general hospital (02) | DRG 314 ==
LOC: ED 12:18 → ED-I 14:50 → ED 16:53 → MS2 16:54 → ICU 21:35
PROVIDERS: Emergency Medicine; ADMIT Internal Medicine; ATTEND Internal Medicine
PROC: 0T9B70Z Drainage of Bladder with Drainage Device, Via Natural or Artificial Opening (ICD-10-PCS; 2022-05-18)
PROC: 5A1D70Z Performance of Urinary Filtration, Intermittent, Less than 6 Hours Per Day (ICD-10-PCS; principal; 2022-05-19)
DX: I31.39 Other pericardial effusion (noninflammatory) (principal); J96.01 Acute respiratory failure with hypoxia; N18.6 End stage renal disease; I13.2 Hypertensive heart and chronic kidney disease with heart failure and with stage 5 chronic kidney disease, or end stage renal disease; J44.1 Chronic obstructive pulmonary disease with (acute) exacerbation; N25.81 Secondary hyperparathyroidism of renal origin; I31.4 Cardiac tamponade; I50.9 Heart failure, unspecified; D63.1 Anemia in chronic kidney disease; E11.22 Type 2 diabetes mellitus with diabetic chronic kidney disease; I48.91 Unspecified atrial fibrillation; F20.9 Schizophrenia, unspecified; F31.9 Bipolar disorder, unspecified; Z99.81 Dependence on supplemental oxygen; Z79.4 Long term (current) use of insulin; Z99.2 Dependence on renal dialysis; Z20.822 Contact with and (suspected) exposure to COVID-19
CPT/HCPCS: J1644

== ENCOUNTER 2022-08-09 23:10 | Inpatient (IN) | payer OTHER ==
[~2022-08-09] VITALS: Ht 177.8 cm; Wt 99.0 kg
[~2022-08-09 23:10] MED LIST changes: +GABAPENTIN100 MG PO; +RENVELA800 MG PO; +RISPERDAL PO
[2022-08-09] MEDS ORDERED: NITROGLYCER0.2 MG/H1 TD (23:43)
[2022-08-10] VITALS (20 sets, daily range): BP systolic 96–163; BP diastolic 64–100
[2022-08-10 00:53] LABS: BASO% 0.4 % (0-3); EOS% 1.8 % (0-8); HEMATOCRIT 36.7 % (39.0-50.0); HEMOGLOBIN 11.6 g/dl (14.0-18.0); LYMPH% 8.8 % (15-41); MEAN CORPUSCULAR HGB CONC 31.6 g/dL CAL (32.0-36.0); NEUT# 5.72 thou/uL (1.82-7.42); RED BLOOD COUNT 3.87 mill/uL (4.70-6.10); RED CELL DISTRI WIDTH 13.5 % (11.5-15.5)
[2022-08-10 01:03] LABS: BILIRUBIN, TOTAL 0.5 mg/dL (0.2-1.3); MAGNESIUM 1.9 mg/dL (1.6-2.3); TOTAL PROTEIN 6.9 g/dL (6.3-8.2)
[2022-08-10 01:07] LABS: MEAN CELL VOLUME 94.8 fL CALC (80.0-100.0)
[2022-08-10 01:09] LABS: CREATININE 9.4 mg/dL (0.7-1.3); POTASSIUM 7.4 mmol/l (3.5-5.1)
[2022-08-10 03:38] LABS: URINE BILIRUBIN - DIPSTICK NEGATIVE (NEGATIVE); URINE BLOOD DIPSTICK SMALL (NEGATIVE); URINE COLOR YELLOW; URINE GLUCOSE - DIPSTICK 250 mg/dL (NEGATIVE); URINE KETONE NEGATIVE (NEGATIVE); URINE LEUK ESTERASE NEGATIVE (NEGATIVE); URINE NITRITE - DIPSTICK NEGATIVE (Negative); URINE PROTEIN - DIPSTICK >=300 mg/dL (NEG-TRACE); URINE UROBILINOGEN - DIPSTICK 0.2 E.U./dL (0.2)
[2022-08-10 03:45] LABS: URINE MUCUS FEW hpf (NONE-FEW); URINE SQUAMOUS EPITHELIAL CELL FEW EPI/hpf (0-FEW); URINE WBC 0-2 WBC/hpf (0-5)
[2022-08-10 06:55] LABS: CREATININE 9.7 mg/dL (0.7-1.3); POTASSIUM 6.4 mmol/l (3.5-5.1)
[2022-08-10 12:32] LABS: HEMATOCRIT 34.2 % (39.0-50.0); HEMOGLOBIN 10.8 g/dl (14.0-18.0)
[2022-08-11] VITALS (64 sets, daily range): BP systolic 61–141; BP diastolic 25–81
[2022-08-11 06:41] LABS: ALBUMIN 3.7 g/dL (3.2-5.0)
[2022-08-11 07:05] LABS: CREATININE 8.3 mg/dL (0.7-1.3); POTASSIUM 7.4 mmol/l (3.5-5.1)
[2022-08-11 18:51] LABS: MAGNESIUM 1.4 mg/dL (1.6-2.3); POTASSIUM 5.1 mmol/l (3.5-5.1)
[2022-08-12] VITALS (104 sets, daily range): BP systolic 77–171; BP diastolic 38–142
[2022-08-12 02:29] LABS: HEMATOCRIT 38.4 % (39.0-50.0); HEMOGLOBIN 11.8 g/dl (14.0-18.0); MEAN CORPUSCULAR HGB 30.4 pG CALC (26.0-32.0); MEAN CORPUSCULAR HGB CONC 30.7 g/dL CAL (32.0-36.0); RED BLOOD COUNT 3.88 mill/uL (4.70-6.10); RED CELL DISTRI WIDTH 13.8 % (11.5-15.5)
[2022-08-12 02:41] LABS: ALBUMIN 3.6 g/dL (3.2-5.0); BILIRUBIN, TOTAL 0.6 mg/dL (0.2-1.3); TOTAL PROTEIN 6.3 g/dL (6.3-8.2)
[2022-08-12 02:59] LABS: CREATININE 5.7 mg/dL (0.7-1.3); MAGNESIUM 1.8 mg/dL (1.6-2.3); POTASSIUM 5.4 mmol/l (3.5-5.1)
[2022-08-13] VITALS (73 sets, daily range): BP systolic 70–276; BP diastolic 37–250
[2022-08-13 07:54] LABS: HEMATOCRIT 36.3 % (39.0-50.0); MEAN CELL VOLUME 98.9 fL CALC (80.0-100.0); MEAN CORPUSCULAR HGB CONC 30.3 g/dL CAL (32.0-36.0); RED BLOOD COUNT 3.67 mill/uL (4.70-6.10); RED CELL DISTRI WIDTH 13.6 % (11.5-15.5)
[2022-08-13 08:09] LABS: ALBUMIN 3.2 g/dL (3.2-5.0); BILIRUBIN, TOTAL 0.7 mg/dL (0.2-1.3); MAGNESIUM 1.9 mg/dL (1.6-2.3); TOTAL PROTEIN 5.9 g/dL (6.3-8.2)
[2022-08-13 08:11] LABS: POTASSIUM 5.9 mmol/l (3.5-5.1)
[2022-08-13 08:12] LABS: CREATININE 8.5 mg/dL (0.7-1.3)
[2022-08-14] VITALS (79 sets, daily range): BP systolic 54–173; BP diastolic 23–146
[2022-08-14 05:37] LABS: HEMATOCRIT 30.8 % (39.0-50.0); HEMOGLOBIN 9.5 g/dl (14.0-18.0); MEAN CELL VOLUME 99.4 fL CALC (80.0-100.0); MEAN CORPUSCULAR HGB 30.6 pG CALC (26.0-32.0); MEAN CORPUSCULAR HGB CONC 30.8 g/dL CAL (32.0-36.0); RED BLOOD COUNT 3.1 mill/uL (4.70-6.10); RED CELL DISTRI WIDTH 13.6 % (11.5-15.5)
[2022-08-14 05:46] LABS: ALBUMIN 3.4 g/dL (3.2-5.0); BILIRUBIN, TOTAL 0.5 mg/dL (0.2-1.3); MAGNESIUM 1.6 mg/dL (1.6-2.3); TOTAL PROTEIN 6.1 g/dL (6.3-8.2)
[2022-08-14 06:42] LABS: CREATININE 5.9 mg/dL (0.7-1.3)
[2022-08-15] VITALS (75 sets, daily range): BP systolic 51–128; BP diastolic 17–89
[2022-08-16] VITALS (120 sets, daily range): BP systolic 61–199; BP diastolic 31–124
[2022-08-16 05:36] LABS: BASO% 0.7 % (0-3); EOS% 6.6 % (0-8); HEMOGLOBIN 10.8 g/dl (14.0-18.0); LYMPH% 12.4 % (15-41); MEAN CORPUSCULAR HGB 30.8 pG CALC (26.0-32.0); MONO% 12.3 % (2-13); NEUT# 5.53 thou/uL (1.82-7.42); RED BLOOD COUNT 3.51 mill/uL (4.70-6.10); RED CELL DISTRI WIDTH 13.9 % (11.5-15.5)
[2022-08-16 05:37] LABS: HEMATOCRIT 37.3 % (39.0-50.0)
[2022-08-16 05:38] LABS: MEAN CELL VOLUME 106.3 fL CALC (80.0-100.0)
[2022-08-16 06:17] LABS: ALBUMIN 3.5 g/dL (3.2-5.0); TOTAL PROTEIN 6.1 g/dL (6.3-8.2)
[2022-08-16 06:25] LABS: BILIRUBIN, TOTAL 1.1 mg/dL (0.2-1.3); POTASSIUM 5.4 mmol/l (3.5-5.1)
[2022-08-16 06:26] LABS: CREATININE 9.7 mg/dL (0.7-1.3)
== END 2022-08-16 16:30 | disposition short-term general hospital (02) | DRG 291 ==
LOC: ED 23:10 → ICU 08-10 02:05
PROVIDERS: Emergency Medicine; Internal Medicine; Internal Medicine Nephrology; ADMIT Internal Medicine; ATTEND Internal Medicine
PROC: 5A09357 Assistance with Respiratory Ventilation, Less than 24 Consecutive Hours, Continuous Positive Airway Pressure (ICD-10-PCS; principal; 2022-08-10)
PROC: 5A1D70Z Performance of Urinary Filtration, Intermittent, Less than 6 Hours Per Day (ICD-10-PCS; 2022-08-10)
PROC: 3E033XZ Introduction of Vasopressor into Peripheral Vein, Percutaneous Approach (ICD-10-PCS; 2022-08-11)
PROC: 5A1D70Z Performance of Urinary Filtration, Intermittent, Less than 6 Hours Per Day (ICD-10-PCS; 2022-08-13)
PROC: 06HY33Z Insertion of Infusion Device into Lower Vein, Percutaneous Approach (ICD-10-PCS; 2022-08-16)
PROC: 0BH17EZ Insertion of Endotracheal Airway into Trachea, Via Natural or Artificial Opening (ICD-10-PCS; 2022-08-16)
PROC: 5A1935Z Respiratory Ventilation, Less than 24 Consecutive Hours (ICD-10-PCS; 2022-08-16)
DX: I13.2 Hypertensive heart and chronic kidney disease with heart failure and with stage 5 chronic kidney disease, or end stage renal disease (principal); A41.9 Sepsis, unspecified organism; J96.21 Acute and chronic respiratory failure with hypoxia; N18.6 End stage renal disease; J96.22 Acute and chronic respiratory failure with hypercapnia; R65.21 Severe sepsis with septic shock; I50.33 Acute on chronic diastolic (congestive) heart failure; J18.9 Pneumonia, unspecified organism; E87.1 Hypo-osmolality and hyponatremia; N25.81 Secondary hyperparathyroidism of renal origin; I24.8 Other forms of acute ischemic heart disease; J44.0 Chronic obstructive pulmonary disease with (acute) lower respiratory infection; I16.0 Hypertensive urgency; E11.22 Type 2 diabetes mellitus with diabetic chronic kidney disease; D63.1 Anemia in chronic kidney disease; E87.5 Hyperkalemia; I95.9 Hypotension, unspecified; G40.909 Epilepsy, unspecified, not intractable, without status epilepticus; I48.91 Unspecified atrial fibrillation; T17.990A Other foreign object in respiratory tract, part unspecified in causing asphyxiation, initial encounter; F25.0 Schizoaffective disorder, bipolar type; F29 Unspecified psychosis not due to a substance or known physiological condition; I25.2 Old myocardial infarction; X58.XXXA Exposure to other specified factors, initial encounter; Z99.2 Dependence on renal dialysis; Z86.73 Personal history of transient ischemic attack (TIA), and cerebral infarction without residual deficits; Z79.4 Long term (current) use of insulin; Z91.15 Patient's noncompliance with renal dialysis; Z20.822 Contact with and (suspected) exposure to COVID-19
CPT/HCPCS: J0282; J1644; J3475; P9047; Q3014